=== PATIENT | female | born 1995 | race Caucasian/White ===

== ENCOUNTER → 2021-02-18 13:34 | Outpatient (BNVA) | payer SELFPAY | PROVIDERS: PCP Pediatrics; Visit Provider Physician Assistant | DX: Z02.79 Encounter for issue of other medical certificate (principal) ==

== ENCOUNTER 2021-10-24 14:27 | Emergency (ER) | payer OTHER, SELFPAY ==
[2021-10-24 14:32] VITALS: BP 112/67; PULSE 80; RESP 16; TEMP 36.1; O2SAT 99; BMI 20.9
--- NOTE | 2021-10-24 15:23 | ED_ITS ---
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 Mild dysuria. Discharge described as thin and white. No abd pain, fever or chills. no back pain. Pt sexually active. Pt complains of mild cramping after urination Related Data Previous Rx's Medication Instructions Recorded fluconazole 150 mg tablet 150 mg PO Q3D #2 tab 10/24/21 (Diflucan) Allergies Allergy/AdvReac Type Severity Reaction Status Date / Time No Known Allergies Allergy Verified 10/24/21 14:31 Review of Systems Verdana 4l Review of Systems: Verdana 4d Verdana 4d Constitutional : No Fever, No Chills ENT/Mouth : No sore throat, No Rhinorrhea Eyes: No Eye Pain, No Redness Cardiovascular : No Chest Pain, No SOB Respiratory : No Cough, No Sputum, No Wheezing Gastrointestinal : No Nausea, No Vomiting, NoNo Diarrhea, mild cramping Genitourinary : No irregular bleeding, No Dysuria, No Urinary Frequency, No pelvic pain, + vaginal discharge, no hematuria Musculoskeletal : No Myalgias Skin : No rash Neuro : No Weakness, No Headache Psych : No Anxiety/Panic, No Depression,No SI/HI/thoughts of self injury Heme/Lymph: No bruising, No Lymphadenopathy Endocrine : No Polyuria, No Polydipsia Yes all other systems are reviewed and are negative [facility] Past Medical History Attestation statement: The following information was validated with the patient. Medical History (Updated 10/24/21 @ 16:33 by LAURA Santana) No known health problems Social History Social History Advance Directives: No Advance Directives Information Provided: Yes Patient : No Physical Exam Verdana 4l Vital Signs: Verdana 4d Verdana 4d Vital Signs: Verdana 4d Verdana 4Bd Last Vital Signs Verdana 4d Rn Testing New 4d Rn Testing New 4d Temp 97 F 10/24/21 14:32 Rn Testing New 4d Pulse 80 10/24/21 14:32 Rn Testing New 4d Resp 16 10/24/21 14:32 BP 112/67 10/24/21 14:32 Pulse Ox 99 10/24/21 14:32 BMI result Body Mass Index 20.9 vital signs have been reviewed as normal and appeared to be correct.? Blood pressure normal.? Heart rate normal.? Respiration rate normal.? Temperature normal.? Oxygen saturation normal. Appearance: Alert. Oriented X3. No acute distress.? ?Head: Normal external exam. Atraumatic Eyes: EOMI. Conjunctiva and sclera normal. Eyelids normal.? ENT: No trismus noted.? No drooling noted.? No muffled voice noted. Neck: Normal inspection. Neck supple. Normal ROM. No meningeal signs. CVS: Normal heart rate and rhythm. Heart sound normal. No murmurs noted. Respiratory: No respiratory distress. Painless inspiration. Breath sounds normal. No wheezes/rales/rhonchi noted.? ?No accessory muscle usage noted or decreased air movement noted. Abdomen: Soft and nontender. Bowel sounds normal in all 4 quadrants. No distention noted.? No organomegaly noted.? No visible injury noted. :? Supervised by Gena De León. Normal external appearance. No lesions/lacerations or or tenderness noted.?+ white, milky discharge. Speculum exam normal appearance/palpation of vagina normal. Otherwise no vaginal erythema. No foreign bodies noted. No vaginal laceration/lesions or active bleeding noted.? No tissue present in vagina.? No vaginal mass noted.? No vaginal swelling noted.? No vaginal tenderness noted.? Normal appearance of cervix.? Back:? No CVA tenderness.? Full range of motion noted.? Skin: Skin warm and dry.? Normal skin color.? Normal skin turgor. No rashes/lesions/lacerations noted. Extremities: No lower extremity edema.? ?Extremities exhibit normal range of motion.? Extremities nontender.? Neuro: Oriented X 3.? No motor deficit.? No sensory deficit. MDM - Female Genitourinary Lab Data Attestation: I reviewed the patient's lab results. Labs: Lab Results 10/24/21 10/24/21 Range/Units 15:55 15:56 Urine Color YELLOW Urine Appearance HAZY Urine pH 7.5 (5.0-8.0) Ur Specific [place] 1.020 (1.005-1.025) Urine Protein NEG (NEG-TRACE) MG/DL Urine Glucose (UA) NEG (NEG) MG/DL Urine Ketones 5 (NEG) MG/DL Urine Blood NEG (NEG) Urine Nitrite NEG (NEG) Ur Leukocyte Esterase NEG (NEG) Urine Test NEGATIVE (NEGATIVE) Discharge Plan Discharge Clinical Impression: Vaginal yeast infection Patient Disposition: Home, Self-Care Instructions: Yeast Infection (ED) Additional Instructions: Your exam indicates that you have a vaginal yeast infection. Take medication as directed. Follow up if no improvement in 1 week or if worsening symptoms. You were also tested for other sexually transmitted diseases (gonorrhea and chlamydia). These tests take a couple of days to come back. You will receive a phone call if those tests come back positive. You do not have a urinary tract infection. Prescriptions: New fluconazole [Diflucan] 150 mg tablet 150 mg PO Q3D Qty: 2 0RF Rx Instructions: may repeat second dose 72 hrs after first dose if symptoms persist Referrals: Physician,None [Primary Care Provider] - 2 days (See attached handout with primary care providers) Interventions: ED Discharge Assessment Last Done: 10/24/21 16:50 Discharge Date/Time: 10/24/21 16:51
[2021-10-24 16:03] LABS: Appearance Urine HAZY; Color Urine YELLOW; Glucose Urine UA NEG (NEG); Leukocyte Esterase Urine NEG (NEG); Nitrite Urine NEG (NEG); PH 7.5 (5.0-8.0); Urine Blood NEG (NEG); Urine Ketones 5 MG/DL (NEG); Urine Protein NEG (NEG-TRACE)
[2021-10-24 16:18] LABS: UPreg QC Valid YES; Urine Pregnancy NEGATIVE (NEGATIVE)
[2021-10-25 14:22] LABS: BV Int Neg Control Negative (Negative); BV Int Pos Control Positive (Positive)
== END 2021-10-24 16:51 | disposition home or self-care (01) ==
PROVIDERS: Physician Assistant; Emergency Provider Emergency Medicine
DX: B37.3 Candidiasis of vulva and vagina (principal)
CPT/HCPCS: 81003; 81025; 87480; 87491; 87510; 87591; 87660; 99284

== ENCOUNTER 2022-07-12 09:40 | Emergency (ER) | payer OTHER, SELFPAY ==
--- NOTE | ~2022-07-12 | CT_ITS ---
EXAMINATION: CT ABDOMEN AND PELVIS WITHOUT CONTRAST CLINICAL INFORMATION: 26-year-old female with flank pain and weight COMPARISON: None TECHNIQUE: Multidetector volumetric imaging was performed from the superior aspect of the liver through the pubic symphysis. Sagittal and coronal reformatted images were obtained on the technologist's workstation. This CT examination was performed using dose optimization techniques as appropriate, variously including the following: *Automated exposure control *Adjustment of mA and/or kV according to patient size (this includes techniques or standardized protocols for targeted exams where dose is matched to indication/reason for exam; i.e. extremities or head) *Use of iterative reconstruction technique DLP: 246 mGy-cm FINDINGS: LUNG BASES: The visualized lung bases are unremarkable. LIVER, GALLBLADDER, AND BILIARY TREE: The liver is normal in size, shape, and attenuation. No focal hepatic lesion or biliary ductal dilatation is present. The gallbladder is unremarkable with no evidence of radiopaque gallstones, gallbladder wall thickening, or obvious pericholecystic inflammatory changes. PANCREAS: Unremarkable. SPLEEN: Unremarkable. ADRENAL GLANDS: Unremarkable. KIDNEYS AND URETERS: There is punctate calculus in the collecting system of right kidney without hydronephrosis. Left kidney revealed parenchymal punctate calcifications without hydroureteronephrosis.. Ureters are nondilated. BLADDER: Unremarkable. GASTROINTESTINAL TRACT: The small and large bowel are unremarkable. The appendix is not identified. ABDOMINAL WALL: There is small fat-containing umbilical hernia LYMPH NODES: There are scattered mesenteric lymph nodes seen on the right with the largest measured 1.1 cm on image 30 series 5 VASCULAR: Unremarkable. PELVIC VISCERA: Unremarkable. OSSEOUS STRUCTURES: Unremarkable. CT/CT abdomen pelvis wo IV con IMPRESSION: Nonobstructing punctate calculi seen bilaterally. Mesentery adenitis, correlate clinically Fleischner guidelines were followed.
[2022-07-12 09:53] VITALS: BP 122/78; PULSE 78; RESP 16; TEMP 36.2; O2SAT 98; BMI 18.7
--- NOTE | 2022-07-12 11:11 | ED.GENADULT ---
HPI - General Adult General Chief complaint: Nausea/Vomiting/Diarrhea Stated complaint: Vomiting/Sore throat Time Seen by Provider: 07/12/22 11:11 Source: patient Mode of arrival: ambulatory Limitations: no limitations History of Present Illness HPI narrative: Patient is a 26 year old assigned female at with no reported medical history presenting to the emergency department today with nausea, vomiting, and upper abdominal pain that is intermittent over the last few months. Patient states that every day she has had nausea, vomiting, and upper abdominal pain and this has been going on since she was in high school. Patient states that she has never been formally evaluated for this. Patient states that the back of her tongue sometimes feels burned and painful. Patient states that every time she eats, this pain gets worse. Patient denies any dizziness, lightheadedness, fever, chills, blurry vision, double vision, loss of vision, chest pain, difficulty breathing, shortness of breath, back pain, night sweats, pain with urination, increased urinary frequency, increased urinary urgency, blood in her urine or stool, syncope or a near syncopal episode, recent trauma or falls, bowel incontinence, bladder incontinence, bowel retention, bladder retention, or any other complaints at this time. Onset (ago): year(s) Location: abdomen Radiation: non-radiation Severity: mild Severity scale (1-10): 3 Relieving factors: none Exacerbating factors: eating Associated symptoms: denies other symptoms Treatments prior to arrival: none Related Data Previous Rx's Medication Instructions Recorded fluconazole 150 mg tablet 150 mg PO Q3D 2 doses #2 tabs 10/24/21 (Diflucan) omeprazole 20 mg capsule,delayed 20 mg PO BID #14 caps 07/12/22 release ondansetron 4 mg disintegrating 4 mg PO Q8H 3 days #9 tabs 07/12/22 tablet Allergies Allergy/AdvReac Type Severity Reaction Status Date / Time No Known Allergies Allergy Verified 10/24/21 14:31 Review of Systems Constitutional: Constitutional: Reports no additional constitutional complaints, Denies chills, Denies fever(s) and Denies night sweats Eyes: Eyes: Reports no additional eye complaints, Denies blurry vision, Denies change in vision, Denies diplopia, Denies eye discharge, Denies loss of vision and Denies eye pain ENT: Denies dizziness Cardiovascular: Cardiovascular: Reports no additional cardiovascular complaints, Denies chest pain, Denies lightheadedness, Denies Loss of Consciousness and Denies dyspnea Respiratory: Respiratory: Reports no additional respiratory complaints and Denies dyspnea Gastrointestinal: Gastrointestinal: Reports no additional gastrointestinal complaints, Reports abdominal pain, Denies melena, Denies hematochezia, Denies change in bowel habits, Denies change in stool character, Reports nausea and Reports vomiting Genitourinary: Genitourinary: Denies hematuria, Denies urinary frequency, Denies dysuria, Denies urinary incontinence, Denies urinary hesitancy and Denies urinary urgency Musculoskeletal: Musculoskeletal: Reports no additional musculoskeletal complaints, Denies numbness and Denies tingling Neurologic: Denies dizziness, Denies loss of vision, Denies numbness and Denies tingling Psychiatric: Psychiatric: Reports no additional psychiatric complaints Endocrine: Endocrine: Reports no additional endocrine complaints Hematologic/Lymphatic: Hematologic/Lymphatic: Reports no additional hematologic/lymphatic complaints Allergic/Immunologic: Allergic/Immunologic: Reports no additional allergic/immunologic complaints PMFSH Past Medical History Attestation statement: The following information was validated with the patient. Source: old records reviewed Medical History No known health problems Social History Social History Advance Directives: Yes Advance Directives Information Provided: Yes Advance Directives on File: No Physical Exam ED Vital Signs: Vital Signs - 24 hr 07/12/22 09:53 Temperature 97.1 F Pulse Rate 78 Respiratory Rate 16 Blood Pressure 122/78 Pulse Oximetry 98 Oxygen Delivery Method Room Air BMI result Body Mass Index 18.7 Const General: cooperative, no acute distress, alert and awake Nutritional Appearance: well nourished Orientation/consciousness: patient oriented x3 Limitations: no limitations HENMT Head: Yes normal to inspection and Yes atraumatic Ears: hearing grossly normal bilaterally and external ears normal General nose exam: Normal external nose present, no nasal discharge noted and no epistaxis Face and sinus: Yes normal facial exam, No abrasion and No laceration Mouth: Normal oral and palatal mucosa present, no drooling and no muffled voice Eyes General: appearance normal, both eyes and all related structures Periorbital: periorbital findings normal Eyelids: Yes eyelids normal Conjunctivae: conjunctivae normal Pupils: Equal, round and reactive pupils present EOM: EOMs intact bilaterally Neck Neck: Yes normal visual inspection, Yes full ROM and Yes no lymphadenopathy Chest Chest palpation & inspection: normal inspection of the chest Resp Effort & Inspection: normal respiratory effort and able to speak in complete sentences Auscultation: clear to auscultation bilaterally Cardio Rate: regular rate Rhythm: regular rhythm GI Inspection: Yes normal to inspection Palpation (GI): Soft to palpation, not firm, nontender, no guarding and not rigid Neuro General: patient oriented x3 and moves all extremities Cranial nerves: Yes Equal, round and reactive pupils present Cognition (Neuro): normal cognition Motor exam (neuro): 5/5 motor strength present throughout Sensory Exam: Normal double simultaneous stimulation for sensation Coordination: [id number] test normal Extrem General: Yes normal to inspection, Yes full ROM and Yes capillary refill normal Psych Appearance: grossly normal Mental Status: mental status grossly normal Affect: normal affect Attitude: cooperative Thought process: Normal thought process present Thought content: Normal thought content present Insight: Good insight present (Psych) Medical Decision Making [facility] Narrative Medical decision making narrative: Patient is a 26 year old assigned female at with no reported medical history presenting to the emergency department today with nausea, vomiting, and epigastric pain. Patient's physical exam was unremarkable. Patient's blood work was unremarkable. Patient's urine showed no acute process. Patient's abdominal CT showed no acute process. Patient's current clinical presentation is most consistent with GERD. I explained my physical exam findings as well as all test results to the patient. I answered all questions asked by the patient. Patient received PO Maalox, IV Protonix, IV Morphine, IV Zofran and IV fluids, which she stated helped her symptoms significantly. I stressed the importance of the patient taking her medication as prescribed. I stressed the importance of the patient following up with her primary care provider and a GI specialist. I stressed the importance of the patient returning to the emergency department immediately if her symptoms were to worsen or if she were to develop any dizziness, shortness of breath, difficulty breathing, chest pain, blurry vision, loss of vision, nausea, vomiting, abdominal pain, fever, chills, back pain, or any other complaints. Patient verbalized agreement and understanding with this treatment plan and discharge. Medical Records Medical records reviewed: Yes I reviewed the patient's medical records. Lab Data Lab results reviewed: Yes I reviewed the patient's lab results. Result diagrams: 07/12/22 11:39 07/12/22 11:39 Labs: Lab Results 07/12/22 07/12/22 07/12/22 Range/Units 11:39 11:39 11:39 WBC 8.4 (4.8-10.8) X10*3/uL RBC 4.14 L (4.20-5.50) X10*6/uL Hgb 13.1 (12.0-16.0) g/dl Hct 37.6 (37.0-47.0) % MCV 90.8 (80.0-98.0) fL MCH 31.6 (27.0-33.0) pg MCHC 34.8 (31.0-35.0) g/dl RDW 12.1 (11.0-16.0) % Plt Count 214 (160-400) X10*3/uL MPV 10.6 (9.4-12.3) fL Immature Gran % (Auto) 0.2 (0.0-0.4) % Neut % (Auto) 70.1 (45-73) % Lymph % (Auto) 22.5 (20-40) % [place] % (Auto) 4.3 (2-11) % Eos % (Auto) 2.4 (0-4) % Baso % (Auto) 0.5 (0-2) % Lymph # (Auto) 1.9 (1.2-4.9) X10*3/uL [place] # (Auto) 0.4 (0.1-1.2) X10*3/uL Eos # (Auto) 0.2 (0.0-0.4) X10*3/uL Baso # (Auto) 0.0 (0.0-0.2) X10*3/uL Abs Immat Gran (auto) 0.02 (0.00-0.03) X10*3/uL Absolute Neuts (auto) 5.9 (2.0-8.3) x10*3/uL Absolute Nucleated RBC 0.000 (0.0-0.012) X10*3/uL Nucleated RBC % (auto) 0.0 (0.0-0.2) /100WBC Sodium 140 (135-145) mmol/L Potassium 3.5 (3.3-5.1) mmol/L Chloride 105 (96-108) mmol/L Carbon Dioxide 24 (22-29) mmol/L Anion Gap 15 (12-20) BUN 10 (9-16) mg/dL Creatinine 0.73 (0.5-1.4) mg/dL Estim Creat Clear Calc 75.5 Estimated GFR > 60 Random Glucose 85 (60-115) mg/dL Calcium 9.5 (8.4-10.2) mg/dL Total Bilirubin 1.2 H (0.0-1.0) mg/dL AST 14 (5-31) U/L ALT 23 (0-31) U/L Alkaline Phosphatase 55 (39-117) U/L Total Protein 7.4 (6.5-8.0) g/dL Albumin 4.6 (3.5-5.0) g/dL Lipase 25 (8-78) U/L Beta HCG, Quant < 2 mIU/mL Urine Color Yellow Urine Appearance Cloudy Urine pH 7.5 (5.0-9.0) Ur Specific [place] 1.020 (1.005-1.025) Urine Protein Trace (Neg-Trace) mg/dL Urine Glucose (UA) Negative (Negative) mg/dL Urine Ketones 80 (Negative) mg/dL Urine Blood Negative (Negative) Urine Nitrite Negative (Negative) Ur Leukocyte Esterase Trace H (Negative) Urine RBC 0-2 (0-2) /HPF Urine WBC 0-5 (0-5) /HPF Ur Squamous Epith Cells 3-5 (0-2) /HPF Urine Bacteria None Seen (None Seen) Hyaline Casts 0-2 (0-2) /LPF Imaging Data CT scan - abdomen: Attestation: I personally reviewed and interpreted this imaging study as follows: My impression: No acute process. Radiologist's impression: EXAMINATION: CT ABDOMEN AND PELVIS WITHOUT CONTRAST? CLINICAL INFORMATION: 26-year-old female with flank pain and weight? COMPARISON: None? TECHNIQUE: Multidetector volumetric imaging was performed from the superior aspect of the liver through the pubic symphysis. Sagittal and coronal reformatted images were obtained on the technologist's workstation.? This CT examination was performed using dose optimization techniques as appropriate, variously including the following: *Automated exposure control *Adjustment of mA and/or kV according to patient size (this includes techniques or standardized protocols for targeted exams where dose is matched to indication/reason for exam; i.e. extremities or head) *Use of iterative reconstruction technique DLP: 246 mGy-cm FINDINGS: LUNG BASES: The visualized lung bases are unremarkable.? LIVER, GALLBLADDER, AND BILIARY TREE: The liver is normal in size, shape, and attenuation. No focal hepatic lesion or biliary ductal dilatation is present. The gallbladder is unremarkable with no evidence of radiopaque gallstones, gallbladder wall thickening, or obvious pericholecystic inflammatory changes.? PANCREAS: Unremarkable.? SPLEEN: Unremarkable.? ADRENAL GLANDS: Unremarkable.? KIDNEYS AND URETERS: There is punctate calculus in the collecting system of right kidney without hydronephrosis. Left kidney revealed parenchymal punctate calcifications without hydroureteronephrosis.. Ureters are nondilated.? BLADDER: Unremarkable.? GASTROINTESTINAL TRACT: The small and large bowel are unremarkable. The appendix is not identified.? ABDOMINAL WALL: There is small fat-containing umbilical hernia? LYMPH NODES: There are scattered mesenteric lymph nodes seen on the right with the largest measured 1.1 cm on image 30 series 5 VASCULAR: Unremarkable. PELVIC VISCERA: Unremarkable.? OSSEOUS STRUCTURES: Unremarkable.? CT/CT abdomen pelvis wo IV con IMPRESSION: Nonobstructing punctate calculi seen bilaterally. Mesentery adenitis, correlate clinically? ? Fleischner guidelines were followed. Dictated By: Lory Alcocer MD Signed By: Electronically signed by Lory Alcocer MD 07/12/22 [id number] Discharge Plan Discharge Clinical Impression: Gastroesophageal reflux disease Patient Disposition: Home, Self-Care Instructions: Gastroesophageal Reflux Disease (ED) Additional Instructions: Follow up with your primary care provider. Return to the emergency department immediately if your symptoms worsen or if you develop any dizziness, shortness of breath, difficulty breathing, chest pain, blurry vision, loss of vision, nausea, vomiting, abdominal pain, fever, chills, back pain, or any other complaints. Prescriptions: New omeprazole 20 mg capsule,delayed release(DR/EC) 20 mg PO BID Qty: 14 0RF ondansetron 4 mg tablet,disintegrating 4 mg PO Q8H 3 Days Qty: 9 0RF No Action fluconazole [Diflucan] 150 mg tablet 150 mg PO Q3D Qty: 2 0RF Rx Instructions: may repeat second dose 72 hrs after first dose if symptoms persist Referrals: [facility] [place] [facility] [Provider Group] (Call to establish and follow up with a GI specialist. ) [facility] [place] Family Medicine [Provider Group] (Call to establish and follow up with a primary care provider. If you already have a primary care provider, please follow up with them. ) [facility] [place] Primary Care, [place] [Provider Group] (Call to establish and follow up with a primary care provider. If you already have a primary care provider, please follow up with them. ) [facility] [place] Primary Care,Briana [Provider Group] (Call to establish and follow up with a primary care provider. If you already have a primary care provider, please follow up with them. ) Stand Alone Forms: Work/School Release Interventions: ED Discharge Assessment Last Done: 07/12/22 14:11 Discharge Date/Time: 07/12/22 14:13 Print Language: [place]
[2022-07-12] MEDS: 0.9 % Sodium Chloride 1,000 ML 999 ML IV (11:43)
[2022-07-12 11:48] LABS: MANUAL DIFF FLAG NO
[2022-07-12] MEDS: Magnesium Hydrox/Alum Hydrox 30 ML ORAL.SUSP 15 ML PO (11:50)
[2022-07-12 11:51] LABS: Appearance Urine Cloudy; Color Urine Yellow; Glucose Urine UA Negative (Negative); Leukocyte Esterase Urine Trace (Negative); Nitrite Urine Negative (Negative); PH 7.5 (5.0-9.0); UMIC TRIGGER UACC YES; Urine Blood Negative (Negative); Urine Ketones 80 mg/dL (Negative); Urine Protein Trace mg/dL (Neg-Trace)
[2022-07-12] MEDS: ondansetron HCL 4 MG/2 ML VIAL IVPUSH (11:51)
[2022-07-12 11:54] LABS: Basophils Percent Auto 0.5 % (0-2); Eosinophils Absolute Auto 0.2 X10*3/uL (0.0-0.4); Eosinophils Percent Auto 2.4 % (0-4); Hematocrit 37.6 % (37.0-47.0); Hemoglobin 13.1 g/dl (12.0-16.0); Imm Gran Abs Auto 0.02 X10*3/uL (0.00-0.03); Imm Gran Pct Auto 0.2 % (0.0-0.4); Lymphocytes Absolute Auto 1.9 X10*3/uL (1.2-4.9); Lymphocytes Percent Auto 22.5 % (20-40); Mean Corpuscular HGB Conc 34.8 g/dl (31.0-35.0); Mean Corpuscular Hemoglobin 31.6 pg (27.0-33.0); Mean Corpuscular Volume 90.8 fL (80.0-98.0); Mean Platelet Volume 10.6 fL (9.4-12.3); Monocytes Absolute Auto 0.4 X10*3/uL (0.1-1.2); Monocytes Percent Auto 4.3 % (2-11); Neutrophils Absolute Auto 5.9 x10*3/uL (2.0-8.3); Neutrophils Percent Auto 70.1 % (45-73); Platelet Count 214 X10*3/uL (160-400); Red Blood Count 4.14 X10*6/uL (4.20-5.50); Red Cell Distribution Width 12.1 % (11.0-16.0); White Blood Count 8.4 X10*3/uL (4.8-10.8)
[2022-07-12] MEDS: Pantoprazole Sodium 40 MG/10 ML VIAL IVPUSH (11:55)
[2022-07-12 11:57] LABS: Bacteria Urine None Seen (None Seen); Hyaline Casts Urine 0-2 /LPF (0-2); RBC Urine 0-2 /HPF (0-2); WBC Urine 0-5 /HPF (0-5)
[2022-07-12 12:12] LABS: HCG Quantitative < 2 mIU/mL
[2022-07-12 12:25] LABS: Alanine Aminotransferase 23 U/L (0-31); Albumin Level 4.6 g/dL (3.5-5.0); Alkaline Phosphatase 55 U/L (39-117); Anion Gap 15 (12-20); Aspartate Amino Transferase 14 U/L (5-31); Bilirubin Total 1.2 mg/dL (0.0-1.0); Blood Urea Nitrogen 10 mg/dL (9-16); Calcium 9.5 mg/dL (8.4-10.2); Carbon Dioxide 24 mmol/L (22-29); Chloride 105 mmol/L (96-108); Creatinine Clr Calc Pharmacy 75.5; Estimated Glomerular Filt Rate > 60; Glucose Random 85 mg/dL (60-115); Lipase 25 U/L (8-78); Potassium 3.5 mmol/L (3.3-5.1); Sodium 140 mmol/L (135-145); Total Protein 7.4 g/dL (6.5-8.0)
[2022-07-12] MEDS: Morphine Sulfate 2 MG/ML CARTRIDGE 1 MG IVPUSH (13:29)
== END 2022-07-12 14:13 | disposition home or self-care (01) ==
PROVIDERS: Physician Assistant Medical; Emergency Provider Emergency Medicine
DX: K21.9 Gastro-esophageal reflux disease without esophagitis (principal); R11.2 Nausea with vomiting, unspecified; R10.10 Upper abdominal pain, unspecified
CPT/HCPCS: 36415; 74176; 80053; 81001; 83690; 84702; 85025; 96361; 96374; 96375; 99283; 99284; J2270; J2405

== ENCOUNTER 2022-08-05 16:20 | Outpatient (REF) | payer OTHER, SELFPAY ==
[2022-08-05 18:07] LABS: C Reactive Protein 0.21 mg/dL (< or = 0.50)
[2022-08-05 18:30] LABS: TSH reflex Free T4 0.75 uIU/mL (0.32-4.0)
[2022-08-06 08:39] LABS: Folate 9.5 ng/mL (> or = 4.0); Vitamin B12 654 pg/mL (200-900)
[2022-08-07 11:12] LABS: H Pylori Breath Test Positive (Negative)
[2022-08-10 05:32] LABS: Transglutaminase Ab IgG <1.0 U/mL; Transglutaminase IgA <1.0 U/mL
[2022-08-11 11:55] LABS: Vitamin D 25-OH, D2 <4 ng/mL; Vitamin D 25-OH, D3 22 ng/mL; Vitamin D 25-OH, Total 22 ng/mL (30-100)
== END 2022-08-05 16:21 | disposition home or self-care (01) ==
LOC: HO.LAB 16:20
PROVIDERS: Visit Provider Nurse Practitioner Family
DX: K58.0 Irritable bowel syndrome with diarrhea (principal); K58.1 Irritable bowel syndrome with constipation; R10.9 Unspecified abdominal pain; E55.9 Vitamin D deficiency, unspecified
CPT/HCPCS: 36415; 82306; 82607; 82746; 83013; 84443; 86140; 86364; 99202

== ENCOUNTER 2022-08-09 07:16 | Emergency (ER) | payer OTHER, SELFPAY ==
--- NOTE | ~2022-08-09 | XR_ITS ---
EXAMINATION: XR KNEE, LEFT CLINICAL INFORMATION: Left knee pain. COMPARISON: None TECHNIQUE: Two views of the left knee. An indicator arrow points to the lateral aspect of the left knee. FINDINGS: Bones and soft tissues are normal. No fracture or joint effusion. Alignment is anatomic. Joint spaces are well maintained. No abnormal soft tissue calcification. XR/XR knee LT 2V IMPRESSION: Unremarkable left knee.
[2022-08-09 07:27] VITALS: BP 105/72; PULSE 82; RESP 18; TEMP 36.6; O2SAT 98; BMI 17.7
[2022-08-09 07:51] LABS: Strep A Nucleic Acid Negative (Negative)
--- NOTE | 2022-08-09 08:18 | ED_ITS ---
HPI - General Adult General Chief complaint: General Medical Stated complaint: L knee pain/Sore throat Time Seen by Provider: 08/09/22 08:14 Source: patient Mode of arrival: ambulatory Limitations: no limitations History of Present Illness HPI narrative: Patient is a 26 year old assigned female at with no reported medical history presenting to the emergency department today with left knee pain and a sore throat. Patient states that over the last 2 weeks, his left knee has been painful and she has been having a sore throat. Patient denies any dizziness, lightheadedness, abdominal pain, nausea, vomiting, fever, chills, blurry vision, double vision, loss of vision, chest pain, difficulty breathing, shortness of breath, back pain, night sweats, pain with urination, increased urinary frequenc y, increased urinary urgency, blood in her urine or stool, syncope or a near syncopal episode, recent trauma or falls, bowel incontinence, bladder incontinence, bowel retention, bladder retention, or any other complaints at this time. Onset (ago): week(s) (2) Location: left and lower extremity Radiation: non-radiation Severity: mild Severity scale (1-10): 3 Quality: dull Pain Consistency: constant Relieving factors: none Exacerbating factors: none Associated symptoms: denies other symptoms Treatments prior to arrival: none Related Data Previous Rx's Medication Instructions Recorded famotidine 20 mg tablet (Pepcid) 20 mg PO BEDTIME #30 tabs 08/05/22 omeprazole 20 mg capsule,delayed 20 mg PO DAILY #30 caps 08/05/22 release ondansetron 4 mg disintegrating 4 mg PO Q8H PRN nausea and 08/05/22 tablet vomiting #20 tabs Allergies Allergy/AdvReac Type Severity Reaction Status Date / Time No Known Allergies Allergy Verified 08/05/22 15:15 Review of Systems Constitutional: Constitutional: Reports no additional constitutional complaints, Denies chills, Denies fever(s) and Denies night sweats Eyes: Eyes: Reports no additional eye complaints, Denies blurry vision, Denies change in vision, Denies diplopia, Denies eye discharge, Denies loss of vision and Denies eye pain ENT: Denies dizziness and Reports sore throat Cardiovascular: Cardiovascular: Reports no additional cardiovascular complaints, Denies chest pain, Denies lightheadedness, Denies Loss of Consciousness and Denies dyspnea Respiratory: Respiratory: Reports no additional respiratory complaints and Denies dyspnea Gastrointestinal: Gastrointestinal: Reports no additional gastrointestinal complaints, Denies abdominal pain, Denies melena, Denies hematochezia, Denies change in bowel habits and Denies change in stool character Genitourinary: Genitourinary: Denies hematuria, Denies urinary frequency, Denies dysuria, Denies urinary incontinence, Denies urinary hesitancy and Denies urinary urgency Musculoskeletal: Musculoskeletal: Reports no additional musculoskeletal complaints, Denies numbness and Denies tingling Comments: left knee pain Neurologic: Denies dizziness, Denies loss of vision, Denies numbness and Denies tingling Psychiatric: Psychiatric: Reports no additional psychiatric complaints Endocrine: Endocrine: Reports no additional endocrine complaints Hematologic/Lymphatic: Hematologic/Lymphatic: Reports no additional hematologic/lymphatic complaints Allergic/Immunologic: Allergic/Immunologic: Reports no additional allergic/immunologic complaints PMFSH Past Medical History Attestation statement: The following information was validated with the patient. Source: old records reviewed Medical History No known health problems Surgical History Hx of wisdom tooth extraction Family History Family History Mother HTN (hypertension) Social History Social History Household Members: Family Alcohol intake: never Patient Tobacco Use Status: Never used Tobacco Advance Directives: No Advance Directives Information Provided: Yes Physical Exam ED Vital Signs: Vital Signs - 24 hr 08/09/22 07:27 Temperature 98 F Pulse Rate 82 Respiratory Rate 18 Blood Pressure 105/72 Pulse Oximetry 98 Oxygen Delivery Method Room Air BMI result Body Mass Index 17.7 Const General: cooperative, no acute distress, alert and awake Nutritional Appearance: well nourished Orientation/consciousness: patient oriented x3 Limitations: no limitations HENMT Head: Yes normal to inspection and Yes atraumatic Ears: hearing grossly normal bilaterally and external ears normal General nose exam: Normal external nose present, no nasal discharge noted and no epistaxis Face and sinus: Yes normal facial exam, No abrasion and No laceration Mouth: Normal oral and palatal mucosa present, no drooling and no muffled voice Throat: Yes posterior oropharynx normal Eyes General: appearance normal, both eyes and all related structures Periorbital: periorbital findings normal Eyelids: Yes eyelids normal Conjunctivae: conjunctivae normal Pupils: Equal, round and reactive pupils present EOM: EOMs intact bilaterally Neck Neck: Yes normal visual inspection, Yes full ROM and Yes no lymphadenopathy Chest Chest palpation & inspection: normal inspection of the chest Resp Effort & Inspection: normal respiratory effort and able to speak in complete sentences Auscultation: clear to auscultation bilaterally Cardio Rate: regular rate Rhythm: regular rhythm GI Inspection: Yes normal to inspection Neuro General: patient oriented x3 and moves all extremities Cranial nerves: Yes Equal, round and reactive pupils present Cognition (Neuro): normal cognition Motor exam (neuro): 5/5 motor strength present throughout Sensory Exam: Normal double simultaneous stimulation for sensation Coordination: [id number] test normal Extrem General: Yes normal to inspection, Yes full ROM and Yes capillary refill normal Psych Appearance: grossly normal Mental Status: mental status grossly normal Affect: normal affect Attitude: cooperative Thought process: Normal thought process present Thought content: Normal thought content present Insight: Good insight present (Psych) Medical Decision Making MDM Narrative Medical decision making narrative: Patient is a 26 year old assigned female at with no reported medical history presenting to the emergency department today with left knee pain and a sore throat. Patient's physical exam was unremarkable. Patient's rapid COVID-19 swab was negative. Patient's left knee x-ray showed no acute process. I explained my physical exam findings as well as all test results to the patient. I answered all questions asked by the patient. Patient's left knee was wrapped with chantell wrap and she was given crutches with crutch instructions. I stressed the importance of the patient taking her medication as prescribed. I stressed the importance of the patient following up with her primary care provider. I stressed the importance of the patient returning to the emergency department immediately if her symptoms were to worsen or if she were to develop any dizziness, shortness of breath, difficulty breathing, chest pain, blurry vision, loss of vision, nausea, vomiting, abdominal pain, fever, chills, back pain, or any other complaints. Patient verbalized agreement and understanding with this treatment plan and discharge. Medical Records Medical records reviewed: Yes I reviewed the patient's medical records. Lab Data Lab results reviewed: Yes I reviewed the patient's lab results. Labs: Lab Results 08/09/22 08/09/22 Range/Units 07:33 09:11 Influenza Type A (PCR) NEGATIVE (Negative) Influenza Type B (PCR) NEGATIVE (Negative) RSV RNA Qual (PCR) NEGATIVE (Negative) SARS-CoV-2 RNA (RT-PCR) NEGATIVE (Negative) S. pyogenes GrpA FANNY Negative (Negative) Imaging Data Left knee x-ray: Attestation: I personally reviewed and interpreted this imaging study as follows: My impression: No acute process. Radiologist's impression: EXAMINATION: XR KNEE, LEFT CLINICAL INFORMATION: Left knee pain.? COMPARISON: None? TECHNIQUE: Two views of the left knee. An indicator arrow points to the lateral aspect of the left knee. FINDINGS: Bones and soft tissues are normal. No fracture or joint effusion. Alignment is anatomic. Joint spaces are well maintained. No abnormal soft tissue calcification.? XR/XR knee LT 2V IMPRESSION: Unremarkable left knee. Dictated By: Fidel Bland MD Signed By: Electronically signed by Fidel Bland MD 08/09/22 0900 Discharge Plan Discharge Clinical Impression: Knee sprain, Sore throat Patient Disposition: Home, Self-Care Instructions: Knee Sprain (ED), Pharyngitis (ED) Additional Instructions: Follow up with your primary care provider and an orthopedic provider. Return to the emergency department immediately if your symptoms worsen or if you develop any dizziness, shortness of breath, difficulty breathing, chest pain, blurry vision, loss of vision, nausea, vomiting, abdominal pain, fever, chills, back pain, or any other complaints. Prescriptions: No Action ondansetron 4 mg tablet,disintegrating 4 mg PO Q8H PRN (Reason: nausea and vomiting) Qty: 20 0RF famotidine [Pepcid] 20 mg tablet 20 mg PO BEDTIME Qty: 30 3RF omeprazole 20 mg capsule,delayed release(DR/EC) 20 mg PO DAILY Qty: 30 3RF Referrals: [facility] Family Medicine [Provider Group] (Call to establish and follow up with a primary care provider. If you already have a primary care provider, please follow up with them. ) [facility] [Provider Group] (Call to establish and follow up with a primary care provider. If you already have a primary care provider, please follow up with them. ) [facility] [Provider Group] (Call to establish and follow up with a primary care provider. If you already have a primary care provider, please follow up with them. ) [facility] [place] [facility] [Provider Group] (Call to establish and follow up with an orthopedic provider. ) Stand Alone Forms: Work/School Release Print Language: Samoan
[2022-08-09 10:06] LABS: Influenza A PCR NEGATIVE (Negative); Influenza B PCR NEGATIVE (Negative); Resp Syncy Virus RNA Qual PCR NEGATIVE (Negative); SARS COV2 PCR INHOUSE NEGATIVE (Negative)
== END 2022-08-09 11:03 | disposition home or self-care (01) ==
PROVIDERS: Physician Assistant Medical; Emergency Provider Emergency Medicine Emergency Medical Services
DX: S83.92XA Sprain of unspecified site of left knee, initial encounter (principal); X58.XXXA Exposure to other specified factors, initial encounter; J02.9 Acute pharyngitis, unspecified; Z20.822 Contact with and (suspected) exposure to COVID-19; Y93.9 Activity, unspecified; Y92.9 Unspecified place or not applicable; Y99.9 Unspecified external cause status
CPT/HCPCS: 0241U; 36415; 73560; 87651; 99283

== ENCOUNTER 2022-08-10 14:24 | Outpatient (REF) | payer OTHER, SELFPAY ==
[2022-08-20 15:06] LABS: Pancreatic Elastase-1 >500 mcg/g
== END 2022-08-10 14:25 | disposition home or self-care (01) ==
LOC: HO.LNP 14:24
PROVIDERS: Visit Provider Nurse Practitioner Family
DX: R10.9 Unspecified abdominal pain (principal)
CPT/HCPCS: 82656

== ENCOUNTER 2022-08-16 11:08 | Day surgery (SDC) | payer OTHER, SELFPAY ==
--- NOTE | 2022-08-13 11:16 | P.CONAN_ITS ---
Documented by User: Karmen Joseph NP 08/13/22 11:17 HPI - Anesthesia Eval Consult details Narrative: 26yo F for Upper Endoscopy [facility] Past Medical History Medical History No known health problems Family History Family History Mother HTN (hypertension) Surgical History Surgical History Hx of wisdom tooth extraction Social History Social History Household Members: Family Alcohol intake: never Patient Tobacco Use Status: Former Tobacco user Are you DNR?: No Advance Directives: No Advance Directives Information Provided: Yes Patient : No FDLMP: spotting now Meds Allergies Allergy/AdvReac Type Severity Reaction Status Date / Time No Known Allergies Allergy Verified 08/16/22 11:48 Exam Exam Date and Time: August 13, 2022 1116 Pertinent Lab Results Pertinent Lab Results: Laboratory Tests 07/12/22 07/12/22 11:39 11:39 WBC 8.4 Hgb 13.1 Hct 37.6 Plt Count 214 Sodium 140 Potassium 3.5 Chloride 105 Carbon Dioxide 24 BUN 10 Creatinine 0.73 Assessment and Plan Assessment Anesthesia Assessment: Chart Reviewed Documented by User: Deborah Morillo MD 08/16/22 12:00 [facility] Past Medical History Medical History No known health problems Family History Family History Mother HTN (hypertension) Family history of problems with anesthesia: No Surgical History Surgical History Hx of wisdom tooth extraction History of Problems with Anesthesia: No Social History Social History Household Members: Family Alcohol intake: never Patient Tobacco Use Status: Former Tobacco user Are you DNR?: No Advance Directives: No Advance Directives Information Provided: Yes Patient : No FDLMP: spotting now Meds Allergies Allergy/AdvReac Type Severity Reaction Status Date / Time No Known Allergies Allergy Verified 08/16/22 11:48 Exam Airway Mallampati Class: II TM Dist: >3cm Neck ROM: Full Heart: rrr Lungs: cta Assessment and Plan Assessment Anesthesia Assessment: Anesthesia Plan Discussed Final Anesthetic Review Family History of Problems with Anesthesia: No History of Problems with Anesthesia: No NPO: Yes ASA Class: II Final Preanesthetic Review: No Changes in Pt Med Stat, Meds/Allgs Chart Reviewed and Consent Obtained/Reviewed Patient Risk: Intermediate Procedure Risk: Intermediate Anesthetic Plan Anesthetic Plan: MAC: Disposition: Standard PACU
[2022-08-16 11:31] VITALS: BMI 18.3
[2022-08-16 11:34] LABS: UPreg QC Valid YES; Urine Pregnancy NEGATIVE (NEGATIVE)
[2022-08-16] MEDS: Lactated Ringers 1,000 ML 100 ML IVCONT (11:45)
[2022-08-16 11:47] VITALS: BP 110/71; PULSE 85; RESP 18; TEMP 36.9; O2SAT 100
--- NOTE | 2022-08-16 12:12 | MHC.SHP ---
Pre-Procedural Eval Section A Date of Service: 08/16/22 The History & Physical has been completed within 30 days and I have reviewed it.: Yes Section B Chief Complaint: reflux disease Allergies: Allergies Allergy/AdvReac Type Severity Reaction Status Date / Time No Known Allergies Allergy Verified 08/16/22 11:48 Plan Diagnosis/Plan: Unchanged I have reviewed the history and physical and performed a pertinent physical examination on my patient. No changes have occurred unless specified.
--- NOTE | 2022-08-16 12:41 | P.OP_ITS ---
Operative Note Operative Note Date of Service: 08/16/22 Narrative: Procedure: Esophagogastroduodenoscopy Endoscopist: Jo Jones MD Indication: Postprandial abd pain and nausea Anesthesia Provider: Dr Deborah Jacobson Anesthesia Type: MAC Instrument: [id number] ?? EGD Procedure:?? The procedure, indications, preparation and potential complications were reviewed with the patient, who indicated understanding and gave written informed consent to proceed. A physical exam was performed. The endoscope was introduced through the mouth, and advanced to the second part of duodenum. The mucosa was carefully examined on slow withdrawal of the endoscope. The patient tolerated the procedure well. There were no immediate complications.? ? EGD Findings:? * Esophagus:?Normal mucosa noted in the entire esophagus. The Z line was at 35cm. Middle and lower esophagus forceps biopsies were obtained to rule out eosinophilic esophagitis. * Stomach:?Normal mucosa was noted in the stomach. Random cold forceps gastric biopsies were taken to rule out H Pylori infection. * Duodenum:?Normal mucosa was noted in the whole of the examined duodenum. Biopsies were taken from duodenal bulb and second portion of the duodenum to rule out celiac sprue. ? EGD Impressions:? * Normal esophagus (biopsy) * Normal stomach (biopsy) * Normal duodenum (biopsy) ?? Recommendations:?? * Follow biopsy results. Our office will call or send a letter with results within 7-10 days. * If H pylori +, patient will be prescribed eradication therapy followed by test of cure. * Avoid NSAIDs. Above has been reviewed with the patient. ?
[2022-08-16 12:45] VITALS: BP 105/63; PULSE 112; RESP 16; TEMP 36.7; O2SAT 100
[2022-08-16 13:00] VITALS: BP 110/78; PULSE 104; RESP 18; TEMP 36.7; O2SAT 100
== END 2022-08-16 13:20 | disposition home or self-care (01) ==
PROVIDERS: Nurse Practitioner; Visit Provider Internal Medicine
PROC: 0DJ08ZZ Inspection of Upper Intestinal Tract, Via Natural or Artificial Opening Endoscopic (ICD-10-PCS; CPT 43235; principal; 2022-08-16 12:20)
DX: K21.9 Gastro-esophageal reflux disease without esophagitis (principal); R10.13 Epigastric pain; R11.0 Nausea; Z79.899 Other long term (current) drug therapy; Z87.891 Personal history of nicotine dependence
CPT/HCPCS: 43239; 81025; 88305; 88342; J2250

== ENCOUNTER 2022-08-26 07:51 | Outpatient (REF) | payer OTHER, SELFPAY ==
--- NOTE | ~2022-08-26 | XR_ITS ---
EXAMINATION: XR KNEE AP STANDING X-ray right knee CLINICAL INFORMATION: Knee pain COMPARISON: X-ray left knee 08/09/2022 TECHNIQUE: Left knee one skyline view AP bilateral standing view of the knees was obtained. FINDINGS: Left knee: Joint spaces are relatively maintained. No fracture or dislocation. No abnormal soft tissue calcification. Right knee: Single frontal projection. Normal alignment. Joint space is maintained. No evidence of acute fracture.. XR/XR knee standing BI IMPRESSION: Unremarkable left knee.
--- NOTE | ~2022-08-26 | XR_ITS ---
EXAMINATION: XR KNEE AP STANDING X-ray right knee CLINICAL INFORMATION: Knee pain COMPARISON: X-ray left knee 08/09/2022 TECHNIQUE: Left knee one skyline view AP bilateral standing view of the knees was obtained. FINDINGS: Left knee: Joint spaces are relatively maintained. No fracture or dislocation. No abnormal soft tissue calcification. Right knee: Single frontal projection. Normal alignment. Joint space is maintained. No evidence of acute fracture.. XR/XR knee LT 1V IMPRESSION: Unremarkable left knee.
== END 2022-08-26 07:52 | disposition home or self-care (01) ==
LOC: HO.HOSX 07:51
PROVIDERS: Visit Provider Physician Assistant
DX: S83.92XD Sprain of unspecified site of left knee, subsequent encounter (principal); X58.XXXD Exposure to other specified factors, subsequent encounter
CPT/HCPCS: 73560; 73565; 99202

== ENCOUNTER 2022-12-25 02:54 | Emergency (ER) | payer OTHER, SELFPAY ==
[2022-12-25 03:01] VITALS: BP 114/80; PULSE 77; RESP 16; TEMP 36.8; O2SAT 100; BMI 22.7
[2022-12-25 03:43] LABS: MANUAL DIFF FLAG NO
[2022-12-25 03:53] LABS: Basophils Percent Auto 0.6 % (0-2); Eosinophils Absolute Auto 0.2 X10*3/uL (0.0-0.4); Eosinophils Percent Auto 2.9 % (0-4); Hematocrit 40.4 % (37.0-47.0); Hemoglobin 13.7 g/dl (12.0-16.0); Imm Gran Abs Auto 0.03 X10*3/uL (0.00-0.03); Imm Gran Pct Auto 0.5 % (0.0-0.4); Lymphocytes Absolute Auto 1.6 X10*3/uL (1.2-4.9); Mean Corpuscular HGB Conc 33.9 g/dl (31.0-35.0); Mean Corpuscular Hemoglobin 30.5 pg (27.0-33.0); Mean Platelet Volume 11.1 fL (9.4-12.3); Monocytes Absolute Auto 0.3 X10*3/uL (0.1-1.2); Monocytes Percent Auto 4.3 % (2-11); Neutrophils Absolute Auto 4.4 x10*3/uL (2.0-8.3); Neutrophils Percent Auto 67.7 % (45-73); Platelet Count 152 X10*3/uL (160-400); Red Blood Count 4.49 X10*6/uL (4.20-5.50); Red Cell Distribution Width 11.9 % (11.0-16.0); White Blood Count 6.5 X10*3/uL (4.8-10.8)
[2022-12-25 03:54] LABS: Appearance Urine Clear; Color Urine Dark Yellow; Glucose Urine UA Negative (Negative); Leukocyte Esterase Urine Negative (Negative); Nitrite Urine Negative (Negative); Specific Gravity - Urine >= 1.030 (1.005-1.025); UMIC TRIGGER UACC YES; Urine Blood Large (3+) (Negative); Urine Ketones Negative (Negative); Urine Protein Trace mg/dL (Neg-Trace)
[2022-12-25 03:59] LABS: Anion Gap 11 (12-20); Blood Urea Nitrogen 15 mg/dL (9-16); Carbon Dioxide 23 mmol/L (22-29); Chloride 111 mmol/L (96-108); Creatinine Clr Calc Pharmacy 80.2; Estimated Glomerular Filt Rate > 60; Glucose Random 106 mg/dL (60-115); Lipase 21 U/L (8-78); Sodium 141 mmol/L (135-145)
[2022-12-25 04:09] LABS: Bacteria Urine None Seen (None Seen); Hyaline Casts Urine 0-2 /LPF (0-2); WBC Urine 0-5 /HPF (0-5)
[2022-12-25 05:07] VITALS: BP 105/64; PULSE 68; RESP 16; TEMP 36.6; O2SAT 98
[2022-12-25 05:24] LABS: UPreg QC Valid YES; Urine Pregnancy NEGATIVE (NEGATIVE)
[2022-12-25 05:38] LABS: OBS Int Ctl Valid YES; OBS1 NEGATIVE (NEGATIVE)
--- NOTE | 2022-12-25 05:39 | PC.NURSE ---
Pt presents for evaluation of rectal pain with bowel movements that has been ongoing for approximately 4 months. Pain is described as sharp, and is accompanied by lower abd pain and some nausea. No history of hemorrhoids. Stools are not oversized and there's no report of straining, constipation, or diarrhea. Food/fluid intake is WNL for pt. No problems voiding and no visible blood. No recent illness or fever and no recent trauma including sexual.
--- NOTE | 2022-12-25 05:46 | ED_ITS ---
HPI - General Adult General Chief complaint: Abdominal Pain Stated complaint: Abd pain/Blood in stool Time Seen by Provider: 12/25/22 05:15 Source: patient Mode of arrival: ambulatory Limitations: no limitations History of Present Illness HPI narrative: 27-year-old female came in for evaluation of rectal pain and rectal bleed with bowel movement. Patient normally go to the bathroom for bowel movement every 4-5 days usually pass hard stool last bowel movement was 5 days ago passing hard stool then found that she has bright red blood per rectum, do not feel abdominal pain, no nausea, no vomiting, no fever, no history of rectal intercourse, no history of hemorrhoid. Related Data Previous Rx's Medication Instructions Recorded famotidine 20 mg tablet (Pepcid) 20 mg PO BEDTIME #30 tabs 08/05/22 ondansetron 4 mg disintegrating 4 mg PO Q8H PRN nausea and 08/05/22 tablet vomiting #20 tabs bismuth subsalicylate 262 mg 2 tab PO QID 14 days #112 tabs 08/10/22 chewable tablet metronidazole 500 mg tablet 1,000 mg PO BID #56 tabs 08/10/22 omeprazole 20 mg capsule,delayed 20 mg PO BID 14 days #28 caps 08/10/22 release tetracycline 500 mg capsule 1,000 mg PO Q12H #56 caps 08/10/22 lidocaine HCl 2 % mucosal solution 1 appl mucous membrane BID PRN 12/25/22 (Lidocaine Viscous) pain #600 mL Allergies Allergy/AdvReac Type Severity Reaction Status Date / Time No Known Allergies Allergy Verified 08/26/22 15:42 Review of Systems Review of Systems: All other systems are reviewed and are negative Constitutional: Reports as per HPI and Reports no additional constitutional complaints Eyes: Reports as per HPI and Reports no additional eye complaints Reports system reviewed and no additional complaints, except as documented Cardiovascular: Reports as per HPI and Reports no additional cardiovascular c omplaints Respiratory: Reports as per HPI and Reports no additional respiratory complaints Gastrointestinal: Reports as per HPI and Reports no additional gastrointestinal complaints Genitourinary: Reports no additional female genitourinary complaints Musculoskeletal: Reports no additional musculoskeletal complaints Skin/Breast: Reports system reviewed and no additional complaints, except as docu Psychiatric: Reports no additional psychiatric complaints Endocrine: Reports no additional endocrine complaints Hematologic/Lymphatic: Reports no additional hematologic/lymphatic complaints Allergic/Immunologic: Reports no additional allergic/immunologic complaints Reports system reviewed and no additional complaints, except as documented and Reports Abnormal speech present [facility] Past Medical History Medical History No known health problems Surgical History Hx of wisdom tooth extraction Family History Family History Mother HTN (hypertension) Social History Social History Household Members: Family Alcohol intake: never Patient Tobacco Use Status: Former Tobacco user Advance Directives: No Advance Directives Information Provided: Yes Patient : No Physical Exam ED Vital Signs: Vital Signs - 24 hr 12/25/22 03:01 12/25/22 05:07 Temperature 98.3 F 98 F Pulse Rate 77 68 Respiratory Rate 16 16 Blood Pressure 114/80 105/64 Pulse Oximetry 100 98 Oxygen Delivery Method Room Air Room Air BMI result Body Mass Index 22.7 Vital signs have been reviewed as appeared to be correct. Blood pressure normal. Heart rate normal. Respiration rate normal. Temperature normal. Oxygen saturation normal. Appearance: Alert. Oriented X3. No acute distress. Head: Normal external exam. Normocephalic. Atraumatic. No Jean Baptiste signs noted. No raccoon eyes noted Eyes: PERRLA. EOMI. Conjunctiva and sclera normal. Eyelids normal. ENT: TM's Normal. Pharynx normal. Uvula midline. Moist mucous membranes. No trismus noted. No drooling noted. No muffled voice noted. Neck: Normal inspection. Neck supple. FROM. No adenopathy. Thyroid Normal. No meningeal signs. No neck mass noted. CVS: Normal heart rate and rhythm. Heart sound normal. No murmurs noted. Pulses normal throughout. Respiratory: No respiratory distress. Painless inspiration. Breath sounds normal. No wheezes/rales/rhonchi noted. Chest nontender. No accessory muscle usage noted or decreased air movement noted. Abdomen: Soft and nontender. Bowel sounds normal in all 4 quadrants. No distention noted. No organomegaly noted. No visible injury noted. Rectal exam: No visible external hemorrhoid, no palpable internal hemorrhoid, no rectal fissure, no mass, no fluctuation, no tenderness, brown stool with no blood. Back: No CVA tenderness. Full range of motion noted. Skin: Skin warm and dry. Normal skin color. Normal skin turgor. No rashes/lesions/lacerations noted. Extremities: No lower extremity edema. Extremities exhibit normal range of motion. Extremities nontender. Neuro: Oriented X 3. Cranial nerve exam: II-XII are grossly intact No motor deficit. No sensory deficit. Reflexes normal. Course Course Course Narrative: 27-year-old female came in for a rectal bleed only with bowel movement patient move her bowel every 4-5 days with hard stool, no hemorrhoids on exam likely patient had rectal fissure. Will discharge the patient with viscous lidocaine use for rectal pain p.r.n. 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 Patient otherwise hemodynamically stable, stable H&H. Medical Decision Making Differential Diagnosis Differential Diagnoses: The differential diagnosis associated with the presentation includes (Rectal bleed, hemorrhoid, rectal fissure, proctitis, c onstipation.) Lab Data MDM Lab Attestation statement: I reviewed the patient's lab results. 12/25/22 03:38 12/25/22 03:38 Labs: Lab Results 12/25/22 12/25/22 12/25/22 Range/Units 03:38 03:38 03:39 WBC 6.5 (4.8-10.8) X10*3/uL RBC 4.49 (4.20-5.50) X10*6/uL Hgb 13.7 (12.0-16.0) g/dl Hct 40.4 (37.0-47.0) % MCV 90.0 (80.0-98.0) fL MCH 30.5 (27.0-33.0) pg MCHC 33.9 (31.0-35.0) g/dl RDW 11.9 (11.0-16.0) % Plt Count 152 L D (160-400) X10*3/uL MPV 11.1 (9.4-12.3) fL Immature Gran % (Auto) 0.5 H (0.0-0.4) % Neut % (Auto) 67.7 (45-73) % Lymph % (Auto) 24.0 (20-40) % [place] % (Auto) 4.3 (2-11) % Eos % (Auto) 2.9 (0-4) % Baso % (Auto) 0.6 (0-2) % Lymph # (Auto) 1.6 (1.2-4.9) X10*3/uL [place] # (Auto) 0.3 (0.1-1.2) X10*3/uL Eos # (Auto) 0.2 (0.0-0.4) X10*3/uL Baso # (Auto) 0.0 (0.0-0.2) X10*3/uL Abs Immat Gran (auto) 0.03 (0.00-0.03) X10*3/uL Absolute Neuts (auto) 4.4 (2.0-8.3) x10*3/uL Absolute Nucleated RBC 0.000 (0.0-0.012) X10*3/uL Nucleated RBC % (auto) 0.0 (0.0-0.2) /100WBC Sodium 141 (135-145) mmol/L Potassium 4.0 (3.3-5.1) mmol/L Chloride 111 H (96-108) mmol/L Carbon Dioxide 23 (22-29) mmol/L Anion Gap 11 L (12-20) BUN 15 (9-16) mg/dL Creatinine 0.64 (0.5-1.4) mg/dL Estim Creat Clear Calc 80.2 Estimated GFR > 60 Random Glucose 106 (60-115) mg/dL Calcium 9.0 (8.4-10.2) mg/dL Lipase 21 (8-78) U/L Urine Color Dark Yellow Urine Appearance Clear Urine pH 5.0 (5.0-9.0) Ur Specific [place] >= 1.030 H (1.005-1.025) Urine Protein Trace (Neg-Trace) mg/dL Urine Glucose (UA) Negative (Negative) mg/dL Urine Ketones Negative (Negative) mg/dL Urine Blood Large (3+) H (Negative) Urine Nitrite Negative (Negative) Ur Leukocyte Esterase Negative (Negative) Urine RBC 3-5 H (0-2) /HPF Urine WBC 0-5 (0-5) /HPF Ur Squamous Epith Cells 3-5 (0-2) /HPF Urine Bacteria None Seen (None Seen) Hyaline Casts 0-2 (0-2) /LPF Urine Test (NEGATIVE) Stool Occult Blood (NEGATIVE) 12/25/22 12/25/22 Range/Units 03:39 05:30 WBC (4.8-10.8) X10*3/uL RBC (4.20-5.50) X10*6/uL Hgb (12.0-16.0) g/dl Hct (37.0-47.0) % MCV (80.0-98.0) fL MCH (27.0-33.0) pg MCHC (31.0-35.0) g/dl RDW (11.0-16.0) % Plt Count (160-400) X10*3/uL MPV (9.4-12.3) fL Immature Gran % (Auto) (0.0-0.4) % Neut % (Auto) (45-73) % Lymph % (Auto) (20-40) % [place] % (Auto) (2-11) % Eos % (Auto) (0-4) % Baso % (Auto) (0-2) % Lymph # (Auto) (1.2-4.9) X10*3/uL [place] # (Auto) (0.1-1.2) X10*3/uL Eos # (Auto) (0.0-0.4) X10*3/uL Baso # (Auto) (0.0-0.2) X10*3/uL Abs Immat Gran (auto) (0.00-0.03) X10*3/uL Absolute Neuts (auto) (2.0-8.3) x10*3/uL Absolute Nucleated RBC (0.0-0.012) X10*3/uL Nucleated RBC % (auto) (0.0-0.2) /100WBC Sodium (135-145) mmol/L Potassium (3.3-5.1) mmol/L Chloride (96-108) mmol/L Carbon Dioxide (22-29) mmol/L Anion Gap (12-20) BUN (9-16) mg/dL Creatinine (0.5-1.4) mg/dL Estim Creat Clear Calc Estimated GFR Random Glucose (60-115) mg/dL Calcium (8.4-10.2) mg/dL Lipase (8-78) U/L Urine Color Urine Appearance Urine pH (5.0-9.0) Ur Specific [place] (1.005-1.025) Urine Protein (Neg-Trace) mg/dL Urine Glucose (UA) (Negative) mg/dL Urine Ketones (Negative) mg/dL Urine Blood (Negative) Urine Nitrite (Negative) Ur Leukocyte Esterase (Negative) Urine RBC (0-2) /HPF Urine WBC (0-5) /HPF Ur Squamous Epith Cells (0-2) /HPF Urine Bacteria (None Seen) Hyaline Casts (0-2) /LPF Urine Test NEGATIVE (NEGATIVE) Stool Occult Blood NEGATIVE (NEGATIVE) Discharge Plan Discharge Clinical Impression: Bright red rectal bleeding, Constipation Patient Disposition: Home, Self-Care Instructions: Gastrointestinal Bleeding (ED) Prescriptions: New lidocaine HCl [Lidocaine Viscous] 2 % solution 1 appl mucous membrane BID PRN (Reason: pain) Qty: 600 0RF No Action tetracycline 500 mg capsule 1,000 mg PO Q12H Qty: 56 0RF metronidazole 500 mg tablet 1,000 mg PO BID Qty: 56 0RF bismuth subsalicylate 262 mg tablet,chewable 2 tab PO QID 14 Days Qty: 112 0RF omeprazole 20 mg capsule,delayed release(DR/EC) 20 mg PO BID 14 Days Qty: 28 0RF ondansetron 4 mg tablet,disintegrating 4 mg PO Q8H PRN (Reason: nausea and vomiting) Qty: 20 0RF famotidine [Pepcid] 20 mg tablet 20 mg PO BEDTIME Qty: 30 3RF Referrals: Grupo Neville MD [Physician] - Stand Alone Forms: Work/School Release
== END 2022-12-25 06:27 | disposition home or self-care (01) ==
PROVIDERS: Emergency Provider Emergency Medicine
DX: K62.5 Hemorrhage of anus and rectum (principal); K59.00 Constipation, unspecified
CPT/HCPCS: 36415; 80048; 81001; 81025; 82272; 83690; 85025; 99283

== ENCOUNTER → 2023-01-14 07:37 | Outpatient (BNVA) | payer SELFPAY | PROVIDERS: Visit Provider Internal Medicine | DX: Z02.79 Encounter for issue of other medical certificate (principal) ==

== ENCOUNTER → 2023-02-11 16:41 | Outpatient (BNVA) | payer OTHER, SELFPAY | PROVIDERS: Visit Provider Nurse Practitioner Family | DX: A04.8 Other specified bacterial intestinal infections (principal); K21.9 Gastro-esophageal reflux disease without esophagitis; R10.13 Epigastric pain; K64.9 Unspecified hemorrhoids | CPT/HCPCS: 99212 ==

== ENCOUNTER 2023-05-03 01:48 | Emergency (ER) | payer OTHER, SELFPAY ==
[2023-05-03 01:51] VITALS: BP 109/74; PULSE 94; RESP 16; TEMP 37.2; O2SAT 98; BMI 20.5
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
[2023-05-03 02:33] LABS: IDNOW Serial# 08D9AD1C; Strep A Nucleic Acid Positive (Negative)
[2023-05-03 02:42] LABS: COVID-19 Test Negative (Negative); IDNOW Serial# BCCEAD1C
--- NOTE | 2023-05-03 02:56 | ED.GENADULT ---
HPI - General Adult General Chief complaint: General Medical Stated complaint: Sore throat Time Seen by Provider: 05/03/23 02:45 Source: patient Mode of arrival: ambulatory Limitations: no limitations History of Present Illness HPI narrative: sore throat x 3 days with increasing pain no sick contacts MD complaint: sore throat Onset (ago): day(s) (3) Location: mouth Severity: moderate Quality: aching and constant Relieving factors: none Exacerbating factors: other (swallowing) Associated symptoms: fever/chills Treatments prior to arrival: none Related Data Previous Rx's Medication Instructions Recorded ondansetron 4 mg disintegrating 4 mg PO Q8H PRN nausea and 08/05/22 tablet vomiting #20 tabs lidocaine HCl 2 % mucosal solution 1 appl mucous membrane BID PRN 12/25/22 (Lidocaine Viscous) pain #600 mL docusate sodium 100 mg capsule 100 mg PO BEDTIME #90 caps 02/11/23 hydrocortisone 2.5 % topical cream 1 appl RI BID-QID PRN hemorrhoids 02/11/23 with perineal applicator #30 grams (Proctosol HC) polyethylene glycol 3350 17 17 g PO DAILY #510 grams 02/11/23 gram/dose oral powder (Miralax) sucralfate 100 mg/mL oral 10 ml PO BEDTIME #400 mL 02/11/23 suspension omeprazole 20 mg capsule,delayed 20 mg PO DAILY 90 days #90 caps 03/23/23 release amoxicillin 500 mg tablet 500 mg PO BID #20 tabs 05/03/23 Allergies Allergy/AdvReac Type Severity Reaction Status Date / Time No Known Allergies Allergy Verified 08/26/22 15:42 Review of Systems Review of Systems: Constitutional : positive Fever, positive Chills ENT/Mouth : positive sore throat, no runny nose Eyes: No Discharge Cardiovascular : No Chest Pain, No SOB Respiratory : No Cough, No Sputum Gastrointestinal : No Nausea, No Vomiting, No Diarrhea Genitourinary : No Dysuria, No Urinary Frequency Musculoskeletal : no Myalgia Skin : No rash Neuro : No Headache PMFSH Past Medical History Attestation statement: The following information was validated with the patient. Medical History Helicobacter pylori (H. pylori) No known health problems Surgical History History of esophagogastroduodenoscopy (EGD) Hx of wisdom tooth extraction Family History Family History Mother HTN (hypertension) Social History Social History Household Members: Family Alcohol intake: never Patient Tobacco Use Status: Former Tobacco user Advance Directives: No Advance Directives Information Provided: Yes Physical Exam ED Vital Signs: Vital Signs - 24 hr 05/03/23 01:51 Temperature 98.9 F Pulse Rate 94 Respiratory Rate 16 Blood Pressure 109/74 Pulse Oximetry 98 Oxygen Delivery Method Room Air BMI result Body Mass Index 20.5 Appearance: Alert. Oriented X3. No acute distress. Eyes: Pupils equal, round and reactive to light. ENT: Pharynx bilateral exudates and tonsilar swelling moderate, tolerating secretions, no muffled voice, swollen neck glands R > L no trismus no sublingual or submandibular swelling, uvula is midline Neck: Normal inspection. Neck supple. CVS: Normal heart rate and rhythm. Pulses normal. Respiratory: No respiratory distress. Breath sounds normal. Abdomen: Soft and nontender. Skin: Skin warm and dry. Normal skin color. Normal skin turgor. Extremities: No lower extremity edema. Neuro: Oriented X 3. No motor deficit. No sensory deficit. 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 [employer] or retropharyngeal abscess + GAS will start on amoxicillin and give strict return precautions Differential Diagnosis Differential Diagnoses: The differential diagnosis associated with the presentation includes strep throat, covid, no uvula shift doubt [employer], no submandibular swelling, no trismus doubt deeper space infection Admission/Observation Consideration of admission/observation: Escalation of care including admission/observation considered tolerating PO stable for outpatient PO antibiotics Lab Data [facility] Lab Attestation statement: I reviewed the patient's lab results. Labs: Lab Results 05/03/23 05/03/23 Range/Units 02:21 02:21 COVID-19 (SHARRON) Negative (Negative) COVID-19 Clin Com See Note S. pyogenes GrpA FANNY Positive A (Negative) Prescription Management I considered prescription management with: Antibiotic po amoxicillin Discharge Plan Discharge Clinical Impression: Strep throat Patient Disposition: Home, Self-Care Instructions: Strep Throat (ED) Additional Instructions: return for worsening symptoms, inability to swallow, difficulty breathing, no improvement on antibiotics or any other concerns. take antibiotic with probiotic take full course of antibiotic Prescriptions: New amoxicillin 500 mg tablet 500 mg PO BID Qty: 20 0RF No Action omeprazole 20 mg capsule,delayed release(DR/EC) 20 mg PO DAILY 90 Days Qty: 90 3RF lidocaine HCl [Lidocaine Viscous] 2 % solution 1 appl mucous membrane BID PRN (Reason: pain) Qty: 600 0RF ondansetron 4 mg tablet,disintegrating 4 mg PO Q8H PRN (Reason: nausea and vomiting) Qty: 20 0RF docusate sodium 100 mg capsule 100 mg PO BEDTIME Qty: 90 3RF polyethylene glycol 3350 [Miralax] 17 gram/dose powder 17 g PO DAILY Qty: 510 2RF hydrocortisone [Proctosol HC] 2.5 % cream with perineal applicator 1 appl RI BID-QID PRN (Reason: hemorrhoids) Qty: 30 2RF sucralfate 100 mg/mL suspension 10 ml PO BEDTIME Qty: 400 3RF Stand Alone Forms: Work/School Release
[2023-05-03] MEDS: Amoxicillin 500 MG CAPSULE PO (03:01)
== END 2023-05-03 03:04 | disposition home or self-care (01) ==
PROVIDERS: Emergency Provider Emergency Medicine
DX: J02.0 Streptococcal pharyngitis (principal); J02.8 Acute pharyngitis due to other specified organisms; R13.10 Dysphagia, unspecified; Z20.822 Contact with and (suspected) exposure to COVID-19; Z20.828 Contact with and (suspected) exposure to other viral communicable diseases; Z79.899 Other long term (current) drug therapy
CPT/HCPCS: 87635; 87651; 99282; 99283

== ENCOUNTER 2023-09-10 17:26 | Emergency (ER) | payer OTHER, SELFPAY ==
--- NOTE | ~2023-09-10 | XR_ITS ---
EXAMINATION: XR KNEE, LEFT CLINICAL INFORMATION: Fall COMPARISON: Left knee radiograph from 08/26/2022 TECHNIQUE: Four views of the left knee. FINDINGS: No acute visible fracture or dislocation. Joint spaces and alignment are maintained. Small knee joint effusion. Soft tissues are unremarkable. XR/XR knee LT 4V IMPRESSION: 1. No acute visible fracture or dislocation. 2. Small knee joint effusion.
--- NOTE | ~2023-09-10 | XR_ITS ---
EXAMINATION: XR LUMBOSACRAL SPINE CLINICAL INFORMATION: Pain COMPARISON: None available. TECHNIQUE: Three views of the lumbosacral spine. FINDINGS: 5 nonrib-bearing lumbar-type vertebral bodies. No acute visible fracture or dislocation. Levocurvature of the thoracolumbar junction. Vertebral body heights and disc spaces are maintained. Posterior elements are intact. Paraspinal soft tissues are unremarkable. Mild fecal loading of the distal transverse colon. Bowel gas is nonobstructive. XR/XR lumbar spine 2-3V IMPRESSION: 1. No acute visible fracture or dislocation. 2. Levocurvature of the thoracolumbar junction. 3. Mild fecal loading of the distal transverse colon.
[2023-09-10 17:31] VITALS: BP 112/69; PULSE 87; RESP 16; TEMP 36.2; O2SAT 99; BMI 21.9
--- NOTE | 2023-09-10 17:31 | ED.GENADULT ---
HPI - General Adult General Chief complaint: Fall Stated complaint: Fall, lower back pain Time Seen by Provider: 09/10/23 17:56 Source: patient, RN notes reviewed and old records reviewed Mode of arrival: ambulatory Limitations: no limitations History of Present Illness HPI narrative: 27-year-old female presents for evaluation of lower back pain and left knee pain. Patient reports that she was walking on the stairs she slipped on the last few steps, approximately 5. She reports that she landed on her back and slid down the last 5 steps. She states that she is unsure if she struck her head but has no headache and there was no loss of consciousness. She complains of mild left elbow pain in addition to the left knee pain and lower back Denies any radiation of pain pain No numbness, tingling. No difficulty urinating Related Data Previous Rx's Medication Instructions Recorded ondansetron 4 mg disintegrating 4 mg PO Q8H PRN nausea and 08/05/22 tablet vomiting #20 tabs lidocaine HCl 2 % mucosal solution 1 appl mucous membrane BID PRN 12/25/22 (Lidocaine Viscous) pain #600 mL docusate sodium 100 mg capsule 100 mg PO BEDTIME #90 caps 02/11/23 hydrocortisone 2.5 % topical cream 1 appl [place] BID-QID PRN hemorrhoids 02/11/23 with perineal applicator #30 grams (Proctosol HC) polyethylene glycol 3350 17 17 g PO DAILY #510 grams 02/11/23 gram/dose oral powder (Miralax) sucralfate 100 mg/mL oral 10 ml PO BEDTIME #400 mL 02/11/23 suspension omeprazole 20 mg capsule,delayed 20 mg PO DAILY 90 days #90 caps 03/23/23 release amoxicillin 500 mg tablet 500 mg PO BID #20 tabs 05/03/23 Allergies Allergy/AdvReac Type Severity Reaction Status Date / Time No Known Allergies Allergy Verified 09/10/23 17:31 Review of Systems Constitutional: Constitutional: Denies chills and Denies fever(s) Cardiovascular: Cardiovascular: Denies chest pain Gastrointestinal: Gastrointestinal: Denies abdominal pain, Denies nausea and Denies vomiting Musculoskeletal: Musculoskeletal: Reports back pain, Reports arthralgias, Denies joint swelling, Denies limited range of motion and Denies tingling Integumentary/Breasts: Skin/Breast: Denies rash Neurologic: Denies tingling PMFSH Past Medical History Medical History Helicobacter pylori (H. pylori) No known health problems Surgical History History of esophagogastroduodenoscopy (EGD) Hx of wisdom tooth extraction Family History Family History Mother HTN (hypertension) Social History Social History Household Members: Family Alcohol intake: never Patient Tobacco Use Status: Former Tobacco user Advance Directives: No Advance Directives Information Provided: No Physical Exam ED Vital Signs: Vital Signs - 24 hr 09/10/23 17:31 Temperature 97.1 F Pulse Rate 87 Respiratory Rate 16 Blood Pressure 112/69 Pulse Oximetry 99 Oxygen Delivery Method Room Air BMI result Body Mass Index 21.9 Const General: healthy appearing, comfortable, no acute distress, alert and awake Nutritional Appearance: well nourished Orientation/consciousness: patient oriented x3 HENMT Head: Yes normocephalic and Yes atraumatic Eyes Eyelids: Yes eyelids normal Conjunctivae: conjunctivae normal Sclerae: sclerae normal Corneas: corneas normal Pupils: Equal, round and reactive pupils present EOM: EOMs intact bilaterally Neck Neck: Yes full ROM Resp Effort & Inspection: normal respiratory effort, able to speak in complete sentences and not labored GI Inspection: No distended Palpation (GI): Soft to palpation, not firm, nontender, no guarding and not rigid Back/Spine/Pelvis Other: Minor lumbar vertebral tenderness without step-offs or deformities. Skin General skin exam: elasticity normal Neuro General: patient oriented x3 Cranial nerves: Yes Equal, round and reactive pupils present and Yes Bilaterally intact EOM present Cognition (Neuro): normal cognition Extrem Other: Moving all extremities well without any obvious deformities. Mild tenderness of the left knee without deformity. Full range of motion with flexion extension of the knee. Patient has full range motion left elbow with flexion extension, pronation, supination Course Course Course Narrative: RME- 27 year old female presents for evaluation of lower back pain and left knee pain after a fall. She reports that she slipped down approximately 5 steps Medical Decision Making Medical Decision Making MDM Narrative: 27-year-old female presents for evaluation lower back and left knee pain mostly after a fall. She also complains of mild left elbow pain. There is no obvious deformity to the elbow, she has full range of motion, no edema. Will get x-ray of the lumbar spine and left knee. Differential Diagnosis Differential Diagnoses: The differential diagnosis associated with the presentation includes Contusion Muscle strain Compression fracture Left knee sprain Lab Data Labs: Lab Results 09/10/23 Range/Units 18:10 Urine Test NEGATIVE (NEGATIVE) Radiology Impression Discussion of test interpretation with radiology: I have reviewed the radiologist's reading. (Small left knee joint effusion, no vertebral fracture) Discharge Plan Discharge Clinical Impression: Contusion Patient Disposition: Home, Self-Care Instructions: Contusion in Adults (ED) Additional Instructions: Your x-rays show no evidence of fracture. Use Ibuprofen/Tylenol for pain Follow-up primary doctor Prescriptions: No Action omeprazole 20 mg capsule,delayed release(DR/EC) 20 mg PO DAILY 90 Days Qty: 90 3RF amoxicillin 500 mg tablet 500 mg PO BID Qty: 20 0RF lidocaine HCl [Lidocaine Viscous] 2 % solution 1 appl mucous membrane BID PRN (Reason: pain) Qty: 600 0RF ondansetron 4 mg tablet,disintegrating 4 mg PO Q8H PRN (Reason: nausea and vomiting) Qty: 20 0RF docusate sodium 100 mg capsule 100 mg PO BEDTIME Qty: 90 3RF polyethylene glycol 3350 [Miralax] 17 gram/dose powder 17 g PO DAILY Qty: 510 2RF hydrocortisone [Proctosol HC] 2.5 % cream with perineal applicator 1 appl LA BID-QID PRN (Reason: hemorrhoids) Qty: 30 2RF sucralfate 100 mg/mL suspension 10 ml PO BEDTIME Qty: 400 3RF
[2023-09-10 18:20] LABS: UPreg QC Valid YES; Urine Pregnancy NEGATIVE (NEGATIVE)
== END 2023-09-10 20:04 | disposition home or self-care (01) ==
PROVIDERS: Physician Assistant; Emergency Provider Emergency Medicine
DX: S30.0XXA Contusion of lower back and pelvis, initial encounter (principal); S50.02XA Contusion of left elbow, initial encounter; W10.9XXA Fall (on) (from) unspecified stairs and steps, initial encounter; M25.462 Effusion, left knee; Y93.9 Activity, unspecified; Y92.9 Unspecified place or not applicable; Y99.9 Unspecified external cause status
CPT/HCPCS: 72100; 73564; 81025; 99282; 99283

== ENCOUNTER 2023-10-16 00:56 | Emergency (ER) | payer OTHER, SELFPAY ==
[2023-10-16 00:57] VITALS: BP 116/69; PULSE 82; RESP 18; TEMP 36.6; O2SAT 99; BMI 23.3
[2023-10-16 01:19] LABS: Appearance Urine Cloudy; Color Urine Yellow; Glucose Urine UA Negative (Negative); Leukocyte Esterase Urine Negative (Negative); Nitrite Urine Negative (Negative); PH 5.5 (5.0-9.0); Specific Gravity - Urine >= 1.030 (1.005-1.025); UMIC TRIGGER UACC YES; Urine Blood Trace (Negative); Urine Ketones Trace mg/dL (Negative); Urine Protein Trace mg/dL (Neg-Trace)
[2023-10-16 01:31] LABS: Bacteria Urine 3+ (None Seen); Hyaline Casts Urine 0-2 /LPF (0-2); RBC Urine 0-2 /HPF (0-2); UACC Culture Trigger YES
[2023-10-16 01:32] LABS: MANUAL DIFF FLAG NO
[2023-10-16 01:37] LABS: Basophils Percent Auto 0.5 % (0-2); Eosinophils Absolute Auto 0.5 X10*3/uL (0.0-0.4); Hematocrit 34.2 % (37.0-47.0); Hemoglobin 11.8 g/dl (12.0-16.0); Imm Gran Abs Auto 0.04 X10*3/uL (0.00-0.03); Imm Gran Pct Auto 0.5 % (0.0-0.4); Lymphocytes Absolute Auto 2.5 X10*3/uL (1.2-4.9); Lymphocytes Percent Auto 29.5 % (20-40); Mean Corpuscular HGB Conc 34.5 g/dl (31.0-35.0); Mean Corpuscular Hemoglobin 30.3 pg (27.0-33.0); Mean Corpuscular Volume 87.7 fL (80.0-98.0); Mean Platelet Volume 9.8 fL (9.4-12.3); Monocytes Absolute Auto 0.5 X10*3/uL (0.1-1.2); Monocytes Percent Auto 5.9 % (2-11); Neutrophils Absolute Auto 4.9 x10*3/uL (2.0-8.3); Neutrophils Percent Auto 57.6 % (45-73); Platelet Count 231 X10*3/uL (160-400); Red Cell Distribution Width 12.5 % (11.0-16.0); White Blood Count 8.5 X10*3/uL (4.8-10.8)
[2023-10-16 02:00] LABS: Anion Gap 11 (12-20); Blood Urea Nitrogen 19 mg/dL (9-16); Calcium 8.7 mg/dL (8.4-10.2); Carbon Dioxide 21 mmol/L (22-29); Chloride 112 mmol/L (96-108); Creatinine Clr Calc Pharmacy 88.5; Estimated Glomerular Filt Rate > 60; Glucose Random 95 mg/dL (60-115); Potassium 3.5 mmol/L (3.3-5.1); Sodium 140 mmol/L (135-145)
[2023-10-16 02:08] LABS: HCG Quantitative 119 mIU/mL
--- NOTE | 2023-10-16 02:58 | ED.GENADULT ---
HPI - General Adult General Chief complaint: General Medical Stated complaint: chronic fatigue Time Seen by Provider: 10/16/23 02:58 Source: patient and family Mode of arrival: ambulatory Limitations: no limitations History of Present Illness HPI narrative: A 27-year-old female came in for evaluation feeling tired, nauseous especially in the morning with no active vomiting, a minor lower abdominal cramps that is similar to the cramps she get before her periods, no fever, no chills, no vomiting, no SOB, no vaginal bleed, no vaginal discharge. Patient stated that her menstrual cycle is late 20 days. No dysuria, no frequency urination, no blood in the urine. Related Data Previous Rx's Medication Instructions Recorded ondansetron 4 mg disintegrating 4 mg PO Q8H PRN nausea and 08/05/22 tablet vomiting #20 tabs lidocaine HCl 2 % mucosal solution 1 appl mucous membrane BID PRN 12/25/22 (Lidocaine Viscous) pain #600 mL docusate sodium 100 mg capsule 100 mg PO BEDTIME #90 caps 02/11/23 hydrocortisone 2.5 % topical cream 1 appl [place] BID-QID PRN hemorrhoids 02/11/23 with perineal applicator #30 grams (Proctosol HC) polyethylene glycol 3350 17 17 g PO DAILY #510 grams 02/11/23 gram/dose oral powder (Miralax) sucralfate 100 mg/mL oral 10 ml PO BEDTIME #400 mL 02/11/23 suspension omeprazole 20 mg capsule,delayed 20 mg PO DAILY 90 days #90 caps 03/23/23 release amoxicillin 500 mg tablet 500 mg PO BID #20 tabs 05/03/23 Allergies Allergy/AdvReac Type Severity Reaction Status Date / Time No Known Allergies Allergy Verified 09/10/23 17:31 Review of Systems Review of Systems: All other systems are reviewed and are negative Constitutional: Reports as per HPI and Reports no additional constitutional complaints Eyes: Reports as per HPI and Reports no additional eye complaints Reports system reviewed and no additional complaints, except as documented Cardiovascular: Reports as per HPI and Reports no additional cardiovascular complaints Respiratory: Reports as per HPI and Reports no additional respiratory complaints Gastrointestinal: Reports as per HPI and Reports no additional gastrointestinal complaints Genitourinary: Reports no additional female genitourinary complaints Musculoskeletal: Reports no additional musculoskeletal complaints Skin/Breast: Reports system reviewed and no additional complaints, except as docu Psychiatric: Reports no additional psychiatric complaints Endocrine: Reports no additional endocrine complaints Hematologic/Lymphatic: Reports no additional hematologic/lymphatic complaints Allergic/Immunologic: Reports no additional allergic/immunologic complaints Reports system reviewed and no additional complaints, except as documented and Reports Abnormal speech present PMFSH Past Medical History Onset Date is defined in the Problem List Problems that require an onset date and time if occurred within 24 hrs of arrival to the ED Aortic Dissection and Rupture; Neurologic impairment; Cardiopulmonary Arrest; Endotracheal Intubation; Insertion or Replacement of Mechanical Circulatory Assist Device Medical History Helicobacter pylori (H. pylori) No known health problems Surgical History History of esophagogastroduodenoscopy (EGD) Hx of wisdom tooth extraction Family History Family History Mother HTN (hypertension) Social History Social History Household Members: Family Alcohol intake: current Alcohol intake frequency: holidays/special occasions only Patient Tobacco Use Status: Former Tobacco user Smoked in Last 30 Days: Yes Use of substances other than those prescribed or required for medical reasons: No Advance Directives: No Advance Directives Information Provided: No Patient : No (pt concern she might be) Physical Exam ED Vital Signs: Vital Signs - 24 hr 10/16/23 00:57 Temperature 97.8 F Pulse Rate 82 Respiratory Rate 18 Blood Pressure 116/69 Pulse Oximetry 99 Oxygen Delivery Method Room Air BMI result Body Mass Index 23.3 Vital signs have been reviewed and appear to be correct. Blood pressure elevated. Heart rate normal. Respiratory rate normal. Temperature normal. Oxygen saturation normal. Appearance: Alert. Oriented X3. No acute distress. Head: Normal external exam. Normocephalic. Atraumatic. No [place] signs noted. No raccoon eyes noted Eyes: PERRLA. EOMI. Conjunctiva and sclera normal. Eyelids normal. ENT: TM's Normal. Pharynx normal. Uvula midline. Moist mucous membranes. No trismus noted. No drooling noted. No muffled voice noted. Neck: Normal inspection. Neck supple. FROM. No adenopathy. Thyroid Normal. No meningeal signs. No neck mass noted. CVS: Normal heart rate and rhythm. Heart sound normal. No murmurs noted. Pulses normal throughout. Respiratory: No respiratory distress. Painless inspiration. Breath sounds normal. No wheezes/rales/rhonchi noted. Chest nontender. No accessory muscle usage noted or decreased air movement noted. Abdomen: Soft and nontender. Bowel sounds normal in all 4 quadrants. No distention noted. No organomegaly noted. No visible injury noted. Back: No CVA tenderness. Full range of motion noted. Skin: Skin warm and dry. Normal skin color. Normal skin turgor. No rashes/lesions/lacerations noted. Extremities: No lower extremity edema. Extremities exhibit normal range of motion. Extremities nontender. Neuro: Oriented X 3. Cranial nerve exam: II-XII are grossly intact No motor deficit. No sensory deficit. Reflexes normal. Course Reevaluation(s) Reevaluation #1: 27-year-old female came in with feeling nauseous and generalized fatigue with positive serum HCG findings and exam is consistent with early . However pelvic ultrasound is not available at this time in our facility tonight and felt patient does not need emergent ultrasound. Patient will follow-up with Dr. Bella as an outpatient for her care. Blood type is AB-positive. Time: 03:10 Medical Decision Making Differential Diagnosis Differential Diagnoses: The differential diagnosis associated with the presentation includes (Electrolyte abnormality, early , anemia, UTI.) Admission/Observation Consideration of admission/observation: Escalation of care including admission/observation considered Lab Data MDM Lab Attestation statement: I reviewed the patient's lab results. 10/16/23 01:21 10/16/23 01:21 Labs: Lab Results 10/16/23 10/16/23 Range/Units 01:14 01:21 WBC 8.5 (4.8-10.8) X10*3/uL RBC 3.90 L (4.20-5.50) X10*6/uL Hgb 11.8 L (12.0-16.0) g/dl Hct 34.2 L (37.0-47.0) % MCV 87.7 (80.0-98.0) fL MCH 30.3 (27.0-33.0) pg MCHC 34.5 (31.0-35.0) g/dl RDW 12.5 (11.0-16.0) % Plt Count 231 D (160-400) X10*3/uL MPV 9.8 (9.4-12.3) fL Immature Gran % (Auto) 0.5 H (0.0-0.4) % Neut % (Auto) 57.6 (45-73) % Lymph % (Auto) 29.5 (20-40) % [place] % (Auto) 5.9 (2-11) % Eos % (Auto) 6.0 H (0-4) % Baso % (Auto) 0.5 (0-2) % Lymph # (Auto) 2.5 (1.2-4.9) X10*3/uL [place] # (Auto) 0.5 (0.1-1.2) X10*3/uL Eos # (Auto) 0.5 H (0.0-0.4) X10*3/uL Baso # (Auto) 0.0 (0.0-0.2) X10*3/uL Abs Immat Gran (auto) 0.04 H (0.00-0.03) X10*3/uL Absolute Neuts (auto) 4.9 (2.0-8.3) x10*3/uL Absolute Nucleated RBC 0.000 (0.0-0.012) X10*3/uL Nucleated RBC % (auto) 0.0 (0.0-0.2) /100WBC Sodium 140 (135-145) mmol/L Potassium 3.5 (3.3-5.1) mmol/L Chloride 112 H (96-108) mmol/L Carbon Dioxide 21 L (22-29) mmol/L Anion Gap 11 L (12-20) BUN 19 H (9-16) mg/dL Creatinine 0.68 (0.5-1.4) mg/dL Estim Creat Clear Calc 88.5 Estimated GFR > 60 Random Glucose 95 (60-115) mg/dL Calcium 8.7 (8.4-10.2) mg/dL Beta HCG, Quant 119 mIU/mL Urine Color Yellow Urine Appearance Cloudy Urine pH 5.5 (5.0-9.0) Ur Specific [place] >= 1.030 H (1.005-1.025) Urine Protein Trace (Neg-Trace) mg/dL Urine Glucose (UA) Negative (Negative) mg/dL Urine Ketones Trace (Negative) mg/dL Urine Blood Trace H (Negative) Urine Nitrite Negative (Negative) Ur Leukocyte Esterase Negative (Negative) Urine RBC 0-2 (0-2) /HPF Urine WBC 6-10 (0-5) /HPF Ur Squamous Epith Cells 6-10 (0-2) /HPF Urine Bacteria 3+ (None Seen) Hyaline Casts 0-2 (0-2) /LPF Discharge Plan Discharge Clinical Impression: First trimester Patient Disposition: Home, Self-Care Instructions: First Trimester (ED) Additional Instructions: Seek immediate medical attention if any abdominal pain or vaginal bleeding otherwise follow-up with Dr. Bella for care. Prescriptions: No Action omeprazole 20 mg capsule,delayed release(DR/EC) 20 mg PO DAILY 90 Days Qty: 90 3RF amoxicillin 500 mg tablet 500 mg PO BID Qty: 20 0RF lidocaine HCl [Lidocaine Viscous] 2 % solution 1 appl mucous membrane BID PRN (Reason: pain) Qty: 600 0RF ondansetron 4 mg tablet,disintegrating 4 mg PO Q8H PRN (Reason: nausea and vomiting) Qty: 20 0RF docusate sodium 100 mg capsule 100 mg PO BEDTIME Qty: 90 3RF polyethylene glycol 3350 [Miralax] 17 gram/dose powder 17 g PO DAILY Qty: 510 2RF hydrocortisone [Proctosol HC] 2.5 % cream with perineal applicator 1 appl [place] BID-QID PRN (Reason: hemorrhoids) Qty: 30 2RF sucralfate 100 mg/mL suspension 10 ml PO BEDTIME Qty: 400 3RF Referrals: Ramírez Bella MD [Physician] -
[2023-10-16 03:22] VITALS: BP 109/77; PULSE 95; RESP 16; O2SAT 97
== END 2023-10-16 03:31 | disposition home or self-care (01) ==
PROVIDERS: Emergency Provider Emergency Medicine
DX: R53.83 Other fatigue (principal); R11.2 Nausea with vomiting, unspecified; R25.2 Cramp and spasm; Z79.899 Other long term (current) drug therapy
CPT/HCPCS: 36415; 80048; 81001; 84702; 85025; 87086; 99283; 99284

== ENCOUNTER 2023-10-18 14:52 | Outpatient (REF) | payer OTHER, SELFPAY ==
[2023-10-18 16:02] LABS: HCG Quantitative 352 mIU/mL
== END 2023-10-18 14:53 | disposition home or self-care (01) ==
LOC: HO.LAB 14:52
PROVIDERS: Visit Provider Advanced Practice Midwife
DX: N91.2 Amenorrhea, unspecified (principal)
CPT/HCPCS: 36415; 84702

== ENCOUNTER 2023-10-23 18:10 | Emergency (ER) | payer OTHER, SELFPAY ==
--- NOTE | ~2023-10-23 | US_ITS ---
EXAMINATION: US OBSTETRICAL ULTRASOUND CLINICAL INFORMATION: Pain, rule out ectopic COMPARISON: None available. LMP: None. Gestational age by maternal dates is unknown. Estimated date of delivery by maternal dates is unknown. TECHNIQUE: Transabdominal and transvaginal imaging of pelvis is performed FINDINGS: The uterus is anteverted with intrauterine distal sac. No Visible yolk sac, embryo/fetus, or cardiac activity seen. There is no significant subchorionic hemorrhage or hematoma. HR: Not visualized Fetus is not seen. MATERNAL ADNEXA: The right maternal ovary measures 2.0 x 1.5 x 1.8 cm. It appears unremarkable The left maternal ovary measures 4.4 x 3.3 x 3.1 cm. There is anechoic cyst measuring 2.8 x 2.4 x 2.7 cm. There is normal arterial and venous flow seen to both ovaries on Doppler exam. There is no significant maternal adnexal mass. There is moderate free fluid in the right adnexa. US/US OB pelvic and transvaginal IMPRESSION: Single gestational sac without any pole, yolk sac or cardiac activity. The distal sac measurements correspond to 5 weeks 0 days Moderate free fluid in the right adnexa. Simple cyst left ovary.
[2023-10-23 18:13] VITALS: BP 115/54; PULSE 85; RESP 18; TEMP 37; O2SAT 100; BMI 23.4
--- NOTE | 2023-10-23 19:15 | ED_ITS ---
HPI - General Adult General Chief complaint: General Medical Stated complaint: 1st trimester, spotting since tuesday Time Seen by Provider: 10/23/23 18:46 Source: patient, RN notes reviewed and old records reviewed Mode of arrival: ambulatory Limitations: no limitations History of Present Illness HPI narrative: 27-year-old female presents for evaluation of lower abdominal pain. She reports that she found out last week that she is She has not yet followed up with OBGYN but has an appointment pending She states that she had some spotting when wiping 6 days ago but no bleeding since. She complains of some mild left lower abdominal discomfort Patient reports a previous miscarriage and is therefore concerned about her symptoms Related Data Previous Rx's Medication Instructions Recorded ondansetron 4 mg disintegrating 4 mg PO Q8H PRN nausea and 08/05/22 tablet vomiting #20 tabs lidocaine HCl 2 % mucosal solution 1 appl mucous membrane BID PRN 12/25/22 (Lidocaine Viscous) pain #600 mL docusate sodium 100 mg capsule 100 mg PO BEDTIME #90 caps 02/11/23 hydrocortisone 2.5 % topical cream 1 appl AR BID-QID PRN hemorrhoids 02/11/23 with perineal applicator #30 grams (Proctosol HC) polyethylene glycol 3350 17 17 g PO DAILY #510 grams 02/11/23 gram/dose oral powder (Miralax) sucralfate 100 mg/mL oral 10 ml PO BEDTIME #400 mL 02/11/23 suspension omeprazole 20 mg capsule,delayed 20 mg PO DAILY 90 days #90 caps 03/23/23 release amoxicillin 500 mg tablet 500 mg PO BID #20 tabs 05/03/23 Allergies Allergy/AdvReac Type Severity Reaction Status Date / Time No Known Allergies Allergy Verified 10/23/23 18:17 Review of Systems 2 Constitutional: Constitutional: Denies chills and Denies fever(s) Eyes: Eyes: Denies blurry vision Cardiovascular: Cardiovascular: Denies chest pain and Denies dyspnea Respiratory: Respiratory: Denies cough and Denies dyspnea Gastrointestinal: Gastrointestinal: Reports abdominal pain, Denies nausea and Denies vomiting Genitourinary: Genitourinary: Reports pelvic pain Comments: Blood with wiping Musculoskeletal: Musculoskeletal: Denies back pain Integumentary/Breasts: Skin/Breast: Denies rash PMFSH Past Medical History Medical History Helicobacter pylori (H. pylori) No known health problems Surgical History History of esophagogastroduodenoscopy (EGD) Hx of wisdom tooth extraction Family History Family History Mother HTN (hypertension) Social History Social History Household Members: Family Alcohol intake: current Alcohol intake frequency: holidays/special occasions only Patient Tobacco Use Status: Former Tobacco user Advance Directives: No Advance Directives Information Provided: No Physical Exam ED Vital Signs: Vital Signs - 24 hr 10/23/23 18:13 Temperature 98.6 F Pulse Rate 85 Respiratory Rate 18 Blood Pressure 115/54 L Pulse Oximetry 100 Oxygen Delivery Method Room Air BMI result Body Mass Index 23.4 Const General: healthy appearing, comfortable, no acute distress, alert and awake Nutritional Appearance: well nourished Orientation/consciousness: patient oriented x3 HENMT Head: Yes normocephalic and Yes atraumatic Eyes Eyelids: Yes eyelids normal Conjunctivae: conjunctivae normal Sclerae: sclerae normal Corneas: corneas normal Pupils: Equal, round and reactive pupils present EOM: EOMs intact bilaterally Neck Neck: Yes full ROM Resp Effort & Inspection: normal respiratory effort, able to speak in complete sentences and not labored GI Other: Tenderness in the left suprapubic region without guarding. Inspection: No distended Palpation (GI): Soft to palpation, not firm, Tenderness to palpation present (GI) in the LLQ and suprapubicly, no guarding and not rigid Auscultation: normoactive bowel sounds Neuro General: patient oriented x3 Cranial nerves: Yes Equal, round and reactive pupils present and Yes Bilaterally intact EOM present Cognition (Neuro): normal cognition Extrem Other: Moving all extremities well without any obvious deformities Course Reevaluation(s) Reevaluation #1: Patient's ultrasound shows no pole, yolk sac or heart rate. At an estimated 5 weeks, this is very concerning for an inevitable . I discussed these findings with the patient and encouraged her to call her OBGYN the morning. Her blood type is AB-positive. Patient be discharged after all questions were answered Time: 20:35 Medications Administered Discontinued Medications Generic Name Dose Route Start Last Admin Trade Name Shaun PRN Reason Stop Dose Admin Acetaminophen 650 mg 10/23/23 18:54 10/23/23 19:17 Acetaminophen 325 Mg Tablet PO 10/23/23 18:55 650 mg ONCE ONE Administration Medical Decision Making Medical Decision Making [facility] Narrative: [age] old female presents for evaluation of lower abdominal pain. Plan for HCG, ultrasound to evaluate/rule out ectopic . Patient does appear quite comfortable. We will also get a UA with labs Differential Diagnosis Differential Diagnoses: The differential diagnosis associated with the presentation includes Abdominal pain Threatened Missed Ectopic UTI Obstructive uropathy Lab Data 10/23/23 18:33 Labs: Lab Results 10/23/23 10/23/23 Range/Units 18:29 18:33 WBC 7.8 (4.8-10.8) X10*3/uL RBC 4.19 L (4.20-5.50) X10*6/uL Hgb 12.8 (12.0-16.0) g/dl Hct 37.1 (37.0-47.0) % MCV 88.5 (80.0-98.0) fL MCH 30.5 (27.0-33.0) pg MCHC 34.5 (31.0-35.0) g/dl RDW 12.9 (11.0-16.0) % Plt Count 230 (160-400) X10*3/uL MPV 11.0 (9.4-12.3) fL Immature Gran % (Auto) 0.5 H (0.0-0.4) % Neut % (Auto) 64.7 (45-73) % Lymph % (Auto) 23.4 (20-40) % Lake % (Auto) 6.2 (2-11) % Eos % (Auto) 4.7 H (0-4) % Baso % (Auto) 0.5 (0-2) % Lymph # (Auto) 1.8 (1.2-4.9) X10*3/uL [place] # (Auto) 0.5 (0.1-1.2) X10*3/uL Eos # (Auto) 0.4 (0.0-0.4) X10*3/uL Baso # (Auto) 0.0 (0.0-0.2) X10*3/uL Abs Immat Gran (auto) 0.04 H (0.00-0.03) X10*3/uL Absolute Neuts (auto) 5.0 (2.0-8.3) x10*3/uL Absolute Nucleated RBC 0.000 (0.0-0.012) X10*3/uL Nucleated RBC % (auto) 0.0 (0.0-0.2) /100WBC Total Bilirubin 0.4 (0.0-1.0) mg/dL Direct Bilirubin 0.2 (0.0-0.5) mg/dL AST 15 (5-31) U/L ALT 19 (0-31) U/L Alkaline Phosphatase 78 (39-117) U/L Total Protein 7.1 (6.5-8.0) g/dL Albumin 4.0 (3.5-5.0) g/dL Lipase 20 (8-78) U/L Beta HCG, Quant 3962 mIU/mL Urine Color Yellow Urine Appearance Clear Urine pH 7.0 (5.0-9.0) Ur Specific [place] 1.025 (1.005-1.025) Urine Protein Negative (Neg-Trace) mg/dL Urine Glucose (UA) Negative (Negative) mg/dL Urine Ketones Negative (Negative) mg/dL Urine Blood Trace H (Negative) Urine Nitrite Negative (Negative) Ur Leukocyte Esterase Trace H (Negative) Urine RBC 0-2 (0-2) /HPF Urine WBC 0-5 (0-5) /HPF Ur Squamous Epith Cells 3-5 (0-2) /HPF Urine Bacteria Trace (None Seen) Hyaline Casts 0-2 (0-2) /LPF Discharge Plan Discharge Clinical Impression: , threatened Patient Disposition: Home, Self-Care Instructions: Threatened Miscarriage (ED) Additional Instructions: Unfortunately, your ultrasound was very concerning for an impending miscarriage. There is no visible yolk sac, embryo/fetus or cardiac activity seen. This far along, it would be expected to see these structures Call your OBGYN tomorrow to let them know we are concerned that you may have a miscarriage Return for new or worsening symptoms Prescriptions: No Action omeprazole 20 mg capsule,delayed release(DR/EC) 20 mg PO DAILY 90 Days Qty: 90 3RF amoxicillin 500 mg tablet 500 mg PO BID Qty: 20 0RF lidocaine HCl [Lidocaine Viscous] 2 % solution 1 appl mucous membrane BID PRN (Reason: pain) Qty: 600 0RF ondansetron 4 mg tablet,disintegrating 4 mg PO Q8H PRN (Reason: nausea and vomiting) Qty: 20 0RF docusate sodium 100 mg capsule 100 mg PO BEDTIME Qty: 90 3RF polyethylene glycol 3350 [Miralax] 17 gram/dose powder 17 g PO DAILY Qty: 510 2RF hydrocortisone [Proctosol HC] 2.5 % cream with perineal applicator 1 appl AR BID-QID PRN (Reason: hemorrhoids) Qty: 30 2RF sucralfate 100 mg/mL suspension 10 ml PO BEDTIME Qty: 400 3RF Stand Alone Forms: Work/School Release
[2023-10-23] MEDS: Acetaminophen 325 MG TABLET 650 MG PO (19:17)
[2023-10-23 19:22] LABS: MANUAL DIFF FLAG NO
[2023-10-23 19:23] LABS: Basophils Percent Auto 0.5 % (0-2); Eosinophils Absolute Auto 0.4 X10*3/uL (0.0-0.4); Eosinophils Percent Auto 4.7 % (0-4); Hematocrit 37.1 % (37.0-47.0); Hemoglobin 12.8 g/dl (12.0-16.0); Imm Gran Abs Auto 0.04 X10*3/uL (0.00-0.03); Imm Gran Pct Auto 0.5 % (0.0-0.4); Lymphocytes Absolute Auto 1.8 X10*3/uL (1.2-4.9); Lymphocytes Percent Auto 23.4 % (20-40); Mean Corpuscular HGB Conc 34.5 g/dl (31.0-35.0); Mean Corpuscular Hemoglobin 30.5 pg (27.0-33.0); Mean Corpuscular Volume 88.5 fL (80.0-98.0); Monocytes Absolute Auto 0.5 X10*3/uL (0.1-1.2); Monocytes Percent Auto 6.2 % (2-11); Neutrophils Percent Auto 64.7 % (45-73); Platelet Count 230 X10*3/uL (160-400); Red Blood Count 4.19 X10*6/uL (4.20-5.50); Red Cell Distribution Width 12.9 % (11.0-16.0); White Blood Count 7.8 X10*3/uL (4.8-10.8)
[2023-10-23 19:25] LABS: Appearance Urine Clear; Color Urine Yellow; Glucose Urine UA Negative (Negative); Leukocyte Esterase Urine Trace (Negative); Nitrite Urine Negative (Negative); Specific Gravity - Urine 1.025 (1.005-1.025); UMIC TRIGGER UACC YES; Urine Blood Trace (Negative); Urine Ketones Negative (Negative); Urine Protein Negative (Neg-Trace)
[2023-10-23 19:30] LABS: Bacteria Urine Trace (None Seen); Hyaline Casts Urine 0-2 /LPF (0-2); RBC Urine 0-2 /HPF (0-2); WBC Urine 0-5 /HPF (0-5)
--- NOTE | 2023-10-23 19:45 | PC.NURSE ---
pt a&ox4. reporting lower abd cramping that is sometimes on the left and sometimes on the right. pt reports one episode of pink blood when they wiped four days ago but non since
[2023-10-23 19:49] LABS: Alanine Aminotransferase 19 U/L (0-31); Alkaline Phosphatase 78 U/L (39-117); Aspartate Amino Transferase 15 U/L (5-31); Bilirubin Direct 0.2 mg/dL (0.0-0.5); Bilirubin Total 0.4 mg/dL (0.0-1.0); Lipase 20 U/L (8-78); Total Protein 7.1 g/dL (6.5-8.0)
[2023-10-23 19:50] LABS: HCG Quantitative 3962 mIU/mL
== END 2023-10-23 20:53 | disposition home or self-care (01) ==
PROVIDERS: Physician Assistant; Emergency Provider Internal Medicine
DX: O20.0 Threatened abortion (principal); Z3A.01 Less than 8 weeks gestation of pregnancy; Z79.899 Other long term (current) drug therapy
CPT/HCPCS: 36415; 76801; 76817; 80076; 81001; 83690; 84702; 85025; 99283; 99284

== ENCOUNTER 2023-10-25 07:49 | Outpatient (REF) | payer OTHER, SELFPAY ==
[2023-10-25 08:47] LABS: HCG Quantitative 6445 mIU/mL
[2023-10-25 14:09] LABS: CT PCR NOT DETECTED (Not Detect.); NG PCR NOT DETECTED (Not Detect.)
== END 2023-10-25 07:50 | disposition home or self-care (01) ==
LOC: HO.LAB 07:49
PROVIDERS: Visit Provider Obstetrics & Gynecology
DX: O20.0 Threatened abortion (principal); Z3A.01 Less than 8 weeks gestation of pregnancy; Z67.30 Type AB blood, Rh positive
CPT/HCPCS: 0353U; 36415; 84702; 99202

== ENCOUNTER 2023-10-25 08:19 | Outpatient (AMB) | payer OTHER, SELFPAY ==
--- NOTE | 2023-10-25 08:20 | A.OFFVIS_ITS ---
Intake Vital Signs 10/25/23 08:21 Height 4 ft 10 in Weight 110 lb 3.698 oz BMI 23.0 BP 98/56 L Intake Visit Reasons: HCG follow up [employer] Required: No Information Interpreted: non-clinical & clinical Accompanied by: Significant Other Allergies No Known Allergies Allergy (Verified 10/25/23 08:23) HPI HPI Comments History of Present Illness Details The patient is presenting for follow-up from emergency room visit on 10/23 for pelvic cramping and spotting few days prior that resolved on the day of the ER visit. The following workup was done in the emergency room: HCG =3962, AB-positive, pelvic ultrasound showed the following: The uterus is anteverted with intrauterine distal sac. No Visible yolk sac, embryo/fetus, or cardiac activity seen. There is no significant subchorionic hemorrhage or hematoma. HR: Not visualized Fetus is not seen. MATERNAL ADNEXA: The right maternal ovary measures 2.0 x 1.5 x 1.8 cm. It appears unremarkable The left maternal ovary measures 4.4 x 3.3 x 3.1 cm. There is anechoic cyst measuring 2.8 x 2.4 x 2.7 cm. There is normal arterial and venous flow seen to both ovaries on Doppler exam. There is no significant maternal adnexal mass. There is moderate free fluid in the right adnexa. The patient is doing well since then no more vaginal spotting, still complaining of minimal pelvic cramping. No other symptoms. HCG repeated today was 6445, an increase of 62.7% from 48 hours ago [facility] Medical History Helicobacter pylori (H. 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 [employer] Sexual orientation: Straight/Heterosexual Gender identity: Female Review of Systems Const All systems reviewed & are unremarkable except as noted in HPI and below Physical Exam Vital Signs: Last Vital Signs BP 98/56 L 10/25/23 08:21 BMI result Body Mass Index 23.0 General: Yes no CVA tenderness External Female Exam: normal external appearance and normal appearance of the urethra Speculum Exam - Vagina: normal appearance of the vagina, normal palpation, no lesions and no masses Speculum Exam - Cervix: normal appearance of the cervix, normal palpation, no lesions, no masses and nontender Bimanual exam- vagina & uterus: normal bimanual exam, normal palpation, uterine size normal, normal palpation, uterine shape normal, No Cervical tenderness present and non-tender Bimanual Exam- Adnexa, other: normal adnexae Back/Spine/Pelvis Back: no CVA tenderness Assessment & Plan Assessment & Plan (1) Early stage of : Code(s): Z34.90 - Encounter for supervision of normal , unspecified, unspecified trimester Plan: GC/CT taken. SAB warnings given to patient, she is to call or go to emergency room in case of pelvic cramping and or vaginal bleeding. vitamin 1 tablet p.o. q.d. Will repeat ultrasound 2 weeks from previous ultrasound since there was a gestational stat without yolk sac , on or after 11/07 for follow-up. Instructions given the patient to schedule an ultrasound and a follow-up appointment in 2 weeks. All questions answered, the patient verbalized understanding Orders: Orders HCG Quantitative Today O20.0 - Threatened US OB limited 11/07/23 Z34.90 - Encounter for supervision of normal , unspecified, unspecified trimester CT NG by PCR Today Z34.90 - Encounter for supervision of normal , unspecified, unspecified trimester Coding Level of Care Code New Pt Level 3 (75836) Diagnoses Early stage of Z34.90
[2023-10-25 08:21] VITALS: BP 98/56; BMI 23.0
== END 2023-10-25 09:18 | disposition home or self-care (01) ==
PROVIDERS: Visit Provider Obstetrics & Gynecology
DX: Z34.90 Encounter for supervision of normal pregnancy, unspecified, unspecified trimester (principal)
CPT/HCPCS: 99203

== ENCOUNTER 2023-10-25 08:53 | Outpatient (REF) | payer OTHER, SELFPAY | END 2023-10-25 08:54 | disposition home or self-care (01) | LOC: HO.LNP 08:53 | PROVIDERS: Visit Provider Obstetrics & Gynecology | DX: Z13.89 Encounter for screening for other disorder (principal) ==

== ENCOUNTER 2023-10-28 01:28 | Emergency (ER) | payer OTHER, SELFPAY ==
--- NOTE | ~2023-10-28 | US_ITS ---
EXAMINATION: US OBSTETRICAL ULTRASOUND CLINICAL INFORMATION: First trimester with abdominal pain, rule out ectopic COMPARISON: 10/23/2023 LMP: Not available. Gestational age by maternal dates is 5 weeks 6 days. Estimated date of delivery by maternal dates is 06/23/2024. TECHNIQUE: Transabdominal and transvaginal FINDINGS: There is a single intrauterine gestational sac with small yolk sac,, measured approximately 0.29 cm embryo/fetus, and cardiac activity. There is no significant subchorionic hemorrhage or hematoma. HR: Not registered CRL (crown rump length): 0.22 cm corresponding to 5 weeks 5 days (with standard deviation of +/- 4 days). Gestational sac revealed deformity suggestive for empty second gestational sac versus small subchorionic bleed, correlate with progressive imaging. CAMELIA (estimated date of delivery): 06/23/2024 +/- 4 days. MATERNAL ADNEXA: The right maternal ovary measures 2.27 x 2.75 x 1.58 cm. The volume of right ovary 5.16 mL The left maternal ovary measures 3.31 x 3.0 x 4.28 cm. The volume of left ovary measured 22.2 mL. There is simple 3.0 x 3.3 x 2.8 cm cyst. There is no significant maternal adnexal mass. There is small maternal pelvic ascites. US/US OB pelvic and transvaginal IMPRESSION: 1. Single intrauterine gestation with ultrasound gestational age of 5 weeks, 6 days +/- 4 days. 2. Estimated date of delivery is 06/23/2024 +/- 4 days. 3. Left adnexal cyst and small pelvic ascites. 4. Deformity of gestational sac suggestive for endplate the second gestational sac versus small subchorionic bleed
[2023-10-28 01:32] VITALS: BP 114/55; PULSE 100; RESP 18; TEMP 36.8; O2SAT 98; BMI 23.1
--- NOTE | 2023-10-28 01:51 | PC.NURSE ---
pt noted to be eating a bag of chips on the way back from the waiting room. RN advised pt to not eat or drink anything further until she has received the okay from the provider and/or nursing staff. she verbalized understanding.
[2023-10-28 01:56] VITALS: BP 115/67; PULSE 89; RESP 16; TEMP 36.9; O2SAT 97
--- NOTE | 2023-10-28 02:48 | ED.GENADULT ---
HPI - General Adult General Chief complaint: General Medical Stated complaint: abd pain, discharge Time Seen by Provider: 10/28/23 02:10 Source: patient and family (Significant other) Mode of arrival: ambulatory Limitations: no limitations History of Present Illness HPI narrative: 27-year-old female in her 1st trimester LMP was about 8 weeks go with blood type of AB-positive had her 1st evaluation by Dr. Bella no ultrasound done for this yet, presented with lower abdominal tenderness and brownish discharge that is started today, feels more pain on the suprapubic and left lower quadrant area radiates to the back with no vaginal bleeding, no nausea, no vomiting. No trauma to the abdomen. No dysuria, no frequency urination the patient noticed bad odor to the urine. Related Data Previous Rx's Medication Instructions Recorded nitrofurantoin 100 mg PO BID #14 caps 10/28/23 monohydrate/macrocrystals 100 mg capsule (Macrobid) Allergies Allergy/AdvReac Type Severity Reaction Status Date / Time No Known Allergies Allergy Verified 10/25/23 08:23 Review of Systems Review of Systems: All other systems are reviewed and are negative Constitutional: Reports as per HPI and Reports no additional constitutional complaints Eyes: Reports as per HPI and Reports no additional eye complaints Reports system reviewed and no additional complaints, except as documented Cardiovascular: Reports as per HPI and Reports no additional cardiovascular complaints Respiratory: Reports as per HPI and Reports no additional respiratory complaints Gastrointestinal: Reports as per HPI and Reports no additional gastrointestinal complaints Genitourinary: Reports no additional female genitourinary complaints Musculoskeletal: Reports no additional musculoskeletal complaints Skin/Breast: Reports system reviewed and no additional complaints, except as docu Psychiatric: Reports no additional psychiatric complaints Endocrine: Reports no additional endocrine complaints Hematologic/Lymphatic: Reports no additional hematologic/lymphatic complaints Allergic/Immunologic: Reports no additional allergic/immunologic complaints Reports system reviewed and no additional complaints, except as documented and Reports Abnormal speech present [facility] Past Medical History Medical History Helicobacter pylori (H. 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 Blood pressure elevated. Heart rate normal. Respiratory rate normal. Temperature normal. Oxygen saturation normal. Appearance: Alert. Oriented X3. No acute distress. Head: Normal external exam. Normocephalic. Atraumatic. No Jean Baptiste signs noted. No raccoon eyes noted Eyes: PERRLA. EOMI. Conjunctiva and sclera normal. Eyelids normal. ENT: TM's Normal. Pharynx normal. Uvula midline. Moist mucous membranes. No trismus noted. No drooling noted. No muffled voice noted. Neck: Normal inspection. Neck supple. FROM. No adenopathy. Thyroid Normal. No meningeal signs. No neck mass noted. CVS: Normal heart rate and rhythm. Heart sound normal. No murmurs noted. Pulses normal throughout. Respiratory: No respiratory distress. Painless inspiration. Breath sounds normal. No wheezes/rales/rhonchi noted. Chest nontender. No accessory muscle usage noted or decreased air movement noted. Abdomen: Soft and nontender. Bowel sounds normal in all 4 quadrants. No distention noted. No organomegaly noted. No visible injury noted. Back: No CVA tenderness. Full range of motion noted. Skin: Skin warm and dry. Normal skin color. Normal skin turgor. No rashes/lesions/lacerations noted. Extremities: No lower extremity edema. Extremities exhibit normal range of motion. Extremities nontender. Neuro: Oriented X 3. Cranial nerve exam: II-XII are grossly intact No motor deficit. No sensory deficit. Reflexes normal. Course Reevaluation(s) Reevaluation #1: 5 weeks and 6 days had ultrasound 6 days ago shows almost same findings, await for official reading from the radiologist but when I reviewed the ultrasound normal right ovary, small cystic lesion on the left ovary unchanged from previous ultrasound 6 days ago. With hCG is doubled from 10/25. Blood type is AB-positive. Bad odor urine with trace of leukocyte esterase and 6-10 white count will start the patient on Macrobid. Sign out to Dr. Gusman to check on the official ultrasound reading. Time: 05:20 Medications Administered Discontinued Medications Generic Name Dose Route Start Last Admin Trade Name Freq PRN Reason Stop Dose Admin Acetaminophen 650 mg 10/28/23 02:46 10/28/23 03:32 Acetaminophen 325 Mg Tablet PO 10/28/23 02:47 650 mg ONCE ONE Administration Medical Decision Making Differential Diagnosis Differential Diagnoses: The differential diagnosis associated with the presentation includes (Normal , threatened , ectopic , severe anemia, electrolyte abnormality.) Admission/Observation Consideration of admission/observation: Escalation of care including admission/observation considered Lab Data MDM Lab Attestation statement: I reviewed the patient's lab results. 10/28/23 03:27 10/28/23 03:27 Labs: Lab Results 10/28/23 10/28/23 Range/Units 03:27 06:12 WBC 9.2 (4.8-10.8) X10*3/uL RBC 3.81 L (4.20-5.50) X10*6/uL Hgb 11.7 L (12.0-16.0) g/dl Hct 33.2 L (37.0-47.0) % MCV 87.1 (80.0-98.0) fL MCH 30.7 (27.0-33.0) pg MCHC 35.2 H (31.0-35.0) g/dl RDW 12.6 (11.0-16.0) % Plt Count 223 (160-400) X10*3/uL MPV 9.4 (9.4-12.3) fL Immature Gran % (Auto) 0.5 H (0.0-0.4) % Neut % (Auto) 68.9 (45-73) % Lymph % (Auto) 21.9 (20-40) % [place] % (Auto) 5.3 (2-11) % Eos % (Auto) 3.0 (0-4) % Baso % (Auto) 0.4 (0-2) % Lymph # (Auto) 2.0 (1.2-4.9) X10*3/uL [place] # (Auto) 0.5 (0.1-1.2) X10*3/uL Eos # (Auto) 0.3 (0.0-0.4) X10*3/uL Baso # (Auto) 0.0 (0.0-0.2) X10*3/uL Abs Immat Gran (auto) 0.05 H (0.00-0.03) X10*3/uL Absolute Neuts (auto) 6.3 (2.0-8.3) x10*3/uL Absolute Nucleated RBC 0.000 (0.0-0.012) X10*3/uL Nucleated RBC % (auto) 0.0 (0.0-0.2) /100WBC Sodium 138 (135-145) mmol/L Potassium 3.5 (3.3-5.1) mmol/L Chloride 107 (96-108) mmol/L Carbon Dioxide 23 (22-29) mmol/L Anion Gap 12 (12-20) BUN 10 (9-16) mg/dL Creatinine 0.62 (0.5-1.4) mg/dL Estim Creat Clear Calc 96.7 Estimated GFR > 60 Random Glucose 109 (60-115) mg/dL Calcium 8.8 (8.4-10.2) mg/dL Beta HCG, Quant 91571 mIU/mL Urine Color Yellow Urine Appearance Clear Urine pH 6.5 (5.0-9.0) Ur Specific [place] >= 1.030 H (1.005-1.025) Urine Protein Negative (Neg-Trace) mg/dL Urine Glucose (UA) Negative (Negative) mg/dL Urine Ketones 40 (Negative) mg/dL Urine Blood Negative (Negative) Urine Nitrite Negative (Negative) Ur Leukocyte Esterase Trace H (Negative) Urine RBC 0-2 (0-2) /HPF Urine WBC 6-10 H (0-5) /HPF Ur Squamous Epith Cells 3-5 (0-2) /HPF Urine Bacteria None Seen (None Seen) Hyaline Casts 0-2 (0-2) /LPF Independent Interpretation I performed an independent interpretation of an: Ultrasound (Single IOP with no pole, possible cystic lesion on the left ovary with normal right ovary. Await for radiology official read) Discharge Plan Discharge Clinical Impression: Abdominal pain in , UTI (urinary tract infection) during Patient Disposition: Still a Patient Instructions: Abdominal Pain in (ED), Urinary Tract Infection in (ED) Prescriptions: New nitrofurantoin monohyd/m-cryst [Macrobid] 100 mg capsule 100 mg PO BID Qty: 14 0RF Rx Instructions: must administer with a meal/food Referrals: Ramírez Bella MD [Physician] -
[2023-10-28 03:32] LABS: Basophils Percent Auto 0.4 % (0-2); Eosinophils Absolute Auto 0.3 X10*3/uL (0.0-0.4); Hematocrit 33.2 % (37.0-47.0); Hemoglobin 11.7 g/dl (12.0-16.0); Imm Gran Abs Auto 0.05 X10*3/uL (0.00-0.03); Imm Gran Pct Auto 0.5 % (0.0-0.4); Lymphocytes Percent Auto 21.9 % (20-40); MANUAL DIFF FLAG NO; Mean Corpuscular HGB Conc 35.2 g/dl (31.0-35.0); Mean Corpuscular Hemoglobin 30.7 pg (27.0-33.0); Mean Corpuscular Volume 87.1 fL (80.0-98.0); Mean Platelet Volume 9.4 fL (9.4-12.3); Monocytes Absolute Auto 0.5 X10*3/uL (0.1-1.2); Monocytes Percent Auto 5.3 % (2-11); Neutrophils Absolute Auto 6.3 x10*3/uL (2.0-8.3); Neutrophils Percent Auto 68.9 % (45-73); Platelet Count 223 X10*3/uL (160-400); Red Blood Count 3.81 X10*6/uL (4.20-5.50); Red Cell Distribution Width 12.6 % (11.0-16.0); White Blood Count 9.2 X10*3/uL (4.8-10.8)
[2023-10-28] MEDS: Acetaminophen 325 MG TABLET 650 MG PO (03:32)
[2023-10-28 03:52] LABS: Anion Gap 12 (12-20); Blood Urea Nitrogen 10 mg/dL (9-16); Calcium 8.8 mg/dL (8.4-10.2); Carbon Dioxide 23 mmol/L (22-29); Chloride 107 mmol/L (96-108); Creatinine Clr Calc Pharmacy 96.7; Estimated Glomerular Filt Rate > 60; Glucose Random 109 mg/dL (60-115); Potassium 3.5 mmol/L (3.3-5.1); Sodium 138 mmol/L (135-145)
[2023-10-28 03:54] LABS: HCG Quantitative 11190 mIU/mL
[2023-10-28 06:10] VITALS: BP 96/47; PULSE 84; TEMP 37.1; O2SAT 99
[2023-10-28 06:19] LABS: Appearance Urine Clear; Color Urine Yellow; Glucose Urine UA Negative (Negative); Leukocyte Esterase Urine Trace (Negative); Nitrite Urine Negative (Negative); PH 6.5 (5.0-9.0); Specific Gravity - Urine >= 1.030 (1.005-1.025); UMIC TRIGGER UACC YES; Urine Blood Negative (Negative); Urine Ketones 40 mg/dL (Negative); Urine Protein Negative (Neg-Trace)
[2023-10-28 06:43] LABS: Bacteria Urine None Seen (None Seen); Hyaline Casts Urine 0-2 /LPF (0-2); RBC Urine 0-2 /HPF (0-2); UACC Culture Trigger YES
[2023-10-28] MEDS: Nitrofurantoin Monohyd/M-Cryst 100 MG CAPSULE PO (07:02)
--- NOTE | 2023-10-28 07:05 | PC.NURSE ---
Alert and oriented, medicated per mar, denies pain or discomfort
--- NOTE | 2023-10-28 09:19 | ED_ITS ---
HPI - General Adult General Chief complaint: General Medical Stated complaint: abd pain, discharge Time Seen by Provider: 10/28/23 02:10 Source: patient and family (Significant other) Mode of arrival: ambulatory Limitations: no limitations Related Data Previous Rx's Medication Instructions Recorded nitrofurantoin 100 mg PO BID #14 caps 10/28/23 monohydrate/macrocrystals 100 mg capsule (Macrobid) Allergies Allergy/AdvReac Type Severity Reaction Status Date / Time No Known Allergies Allergy Verified 10/25/23 08:23 [facility] Past Medical History Medical History Helicobacter pylori (H. 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 [employer] Sexual orientation: Straight/Heterosexual Gender identity: Female Physical Exam ED Vital Signs: Vital Signs - 24 hr 10/28/23 01:32 10/28/23 01:56 10/28/23 06:10 Temperature 98.3 F 98.5 F 98.7 F Pulse Rate 100 89 84 Respiratory Rate 18 16 Blood Pressure 114/55 L 115/67 96/47 L Pulse Oximetry 98 97 99 Oxygen Delivery Method Room Air Room Air Room Air BMI result Body Mass Index 23.1 Medications Administered Discontinued Medications Generic Name Dose Route Start Last Admin Trade Name Freq PRN Reason Stop Dose Admin Acetaminophen 650 mg 10/28/23 02:46 10/28/23 03:32 Acetaminophen 325 Mg Tablet PO 10/28/23 02:47 650 mg ONCE ONE Administration Nitrofurantoin Macrocrystals 100 mg 10/28/23 06:56 10/28/23 07:02 Nitrofurantoin Monohyd/M-Cryst 100 Mg Capsule PO 10/28/23 06:57 100 mg ONCE ONE Administration Medical Decision Making Medical Decision Making MDM Narrative: Patient's ultrasound shows an intrauterine . Will discharge patient home. No evidence for ectopic. In stable condition. Patient's quant increasing. Will have patient follow-up with Dr. Shayne sears on an outpatient basis. Lab Data 10/28/23 03:27 10/28/23 03:27 Labs: Lab Results 10/28/23 10/28/23 Range/Units 03:27 06:12 WBC 9.2 (4.8-10.8) X10*3/uL RBC 3.81 L (4.20-5.50) X10*6/uL Hgb 11.7 L (12.0-16.0) g/dl Hct 33.2 L (37.0-47.0) % MCV 87.1 (80.0-98.0) fL MCH 30.7 (27.0-33.0) pg MCHC 35.2 H (31.0-35.0) g/dl RDW 12.6 (11.0-16.0) % Plt Count 223 (160-400) X10*3/uL MPV 9.4 (9.4-12.3) fL Immature Gran % (Auto) 0.5 H (0.0-0.4) % Neut % (Auto) 68.9 (45-73) % Lymph % (Auto) 21.9 (20-40) % [place] % (Auto) 5.3 (2-11) % Eos % (Auto) 3.0 (0-4) % Baso % (Auto) 0.4 (0-2) % Lymph # (Auto) 2.0 (1.2-4.9) X10*3/uL [place] # (Auto) 0.5 (0.1-1.2) X10*3/uL Eos # (Auto) 0.3 (0.0-0.4) X10*3/uL Baso # (Auto) 0.0 (0.0-0.2) X10*3/uL Abs Immat Gran (auto) 0.05 H (0.00-0.03) X10*3/uL Absolute Neuts (auto) 6.3 (2.0-8.3) x10*3/uL Absolute Nucleated RBC 0.000 (0.0-0.012) X10*3/uL Nucleated RBC % (auto) 0.0 (0.0-0.2) /100WBC Sodium 138 (135-145) mmol/L Potassium 3.5 (3.3-5.1) mmol/L Chloride 107 (96-108) mmol/L Carbon Dioxide 23 (22-29) mmol/L Anion Gap 12 (12-20) BUN 10 (9-16) mg/dL Creatinine 0.62 (0.5-1.4) mg/dL Estim Creat Clear Calc 96.7 Estimated GFR > 60 Random Glucose 109 (60-115) mg/dL Calcium 8.8 (8.4-10.2) mg/dL Beta HCG, Quant 45949 mIU/mL Urine Color Yellow Urine Appearance Clear Urine pH 6.5 (5.0-9.0) Ur Specific [place] >= 1.030 H (1.005-1.025) Urine Protein Negative (Neg-Trace) mg/dL Urine Glucose (UA) Negative (Negative) mg/dL Urine Ketones 40 (Negative) mg/dL Urine Blood Negative (Negative) Urine Nitrite Negative (Negative) Ur Leukocyte Esterase Trace H (Negative) Urine RBC 0-2 (0-2) /HPF Urine WBC 6-10 H (0-5) /HPF Ur Squamous Epith Cells 3-5 (0-2) /HPF Urine Bacteria None Seen (None Seen) Hyaline Casts 0-2 (0-2) /LPF Discharge Plan Discharge Clinical Impression: Abdominal pain in , UTI (urinary tract infection) during Patient Disposition: Still a Patient Instructions: Abdominal Pain in (ED), Urinary Tract Infection in (ED) Prescriptions: New nitrofurantoin monohyd/m-cryst [Macrobid] 100 mg capsule 100 mg PO BID Qty: 14 0RF Rx Instructions: must administer with a meal/food Referrals: Ramírez Bella MD [Physician] -
== END 2023-10-28 09:49 | disposition still patient (30) ==
PROVIDERS: Emergency Medicine; Emergency Provider Emergency Medicine Emergency Medical Services
DX: O23.41 Unspecified infection of urinary tract in pregnancy, first trimester (principal); N39.0 Urinary tract infection, site not specified; Z3A.01 Less than 8 weeks gestation of pregnancy; Z79.899 Other long term (current) drug therapy
CPT/HCPCS: 36415; 76801; 76817; 80048; 81001; 84702; 85025; 87086; 99284

== ENCOUNTER 2023-11-08 11:20 | Outpatient (AMB) | payer OTHER, SELFPAY ==
--- NOTE | 2023-11-08 11:43 | A.OFFVIS_ITS ---
Intake Vital Signs 11/08/23 11:45 Height 4 ft 10 in Weight 110 lb 3.698 oz BMI 23.0 BP 100/60 Intake Visit Reasons: US followup per Remedial Project Manager Required: No Information Interpreted: non-clinical & clinical Accompanied by: Significant Other Allergies No Known Allergies Allergy (Verified 11/08/23 11:45) HPI HPI Comments History of Present Illness Details Presenting for follow-up ultrasound done on 10/28/2023. The patient is doing well with no complaints complaining of mild pelvic cramping with no vaginal bleeding or any other concerns. On vitamin 1 tablet p.o. q.d. Pelvic ultrasound showed the following: IMPRESSION: 1. Single intrauterine gestation with ul trasound gestational age of 5 weeks, 6 days +/- 4 days. 2. Estimated date of delivery is 024 +/- 4 days. 3. Left adnexal cyst and small pelvic as cites. 4. Deformity of gestational sac suggesti ve for endplate the second gestational sac versus small subchorionic bleed [facility] Medical History Helicobacter pylori (H. 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[email or web address] Sexual orientation: Straight/Heterosexual Gender identity: Female Review of Systems Const All systems reviewed & are unremarkable except as noted in HPI and below Reports as per HPI and Reports no additional complaints GI Reports no additional complaints Reports no additional complaints Assessment & Plan Assessment & Plan (1) Cramping affecting , antepartum: Code(s): O26.899 - Other specified related conditions, unspecified trimester; R10.9 - Unspecified abdominal pain Plan: iscussed with the patient the finding on ultrasound showing gestational sac deformity with possible 2nd gestational sac or subchorionic hemorrhage, given the patient's pelvic cramping will order pelvic ultrasound. SAB warnings given to patient, she is to call or go to emergency room in case of persistent or worsening of her pelvic pain and/or vaginal bleeding. vitamin 1 tablet p.o. q.d. instructions given the patient to schedule an ultrasound follow-up appointment Orders: Orders US OB <= 14 weeks fetus Today O26.899 - Other specified related conditions, unspecified trimester, R10.9 - Unspecified abdominal pain Coding Level of Care Code Est Pt Level 3 (65237) Diagnoses Cramping affecting , antepartum O26.899; R10.9
[2023-11-08 11:45] VITALS: BP 100/60; BMI 23.0
== END 2023-11-08 12:03 | disposition home or self-care (01) ==
LOC: HO.HWS 11:21
PROVIDERS: Visit Provider Obstetrics & Gynecology
DX: O26.899 Other specified pregnancy related conditions, unspecified trimester (principal); R10.9 Unspecified abdominal pain
CPT/HCPCS: 99213

== ENCOUNTER 2023-11-08 11:59 | Outpatient (REF) | payer OTHER, SELFPAY ==
--- NOTE | ~2023-11-08 | US_ITS ---
EXAMINATION: US OBSTETRICAL ULTRASOUND CLINICAL INFORMATION: ; for size and dates. COMPARISON: Obstetrical ultrasound dated 11-19. LMP: Uncertain. Gestational age by maternal dates is uncertain. Estimated date of delivery by maternal dates is uncertain. TECHNIQUE: Ultrasound of the maternal pelvis is performed using transabdominal transducer. M-mode Doppler is also performed. FINDINGS: There is a single intrauterine gestational sac with visible yolk sac, embryo/fetus, and cardiac activity. There is no significant subchorionic hemorrhage or hematoma. HR: 130 beats per minute. CRL (crown rump length): 0.77 cm (6 weeks and 5 days +/- 4 days). CAMELIA (estimated date of delivery): 06/28/2024 +/- 4 days. MATERNAL ADNEXA: The right maternal ovary measures 3.0 x 1.5 x 2.1 cm. The left maternal ovary measures 4.7 x 3.7 x 3.4 cm. The left ovary contains a 3.4 cm benign, simple physiologic cyst. There is no significant maternal adnexal mass. No maternal pelvic ascites. US/US OB <= 14 weeks fetus IMPRESSION: 1. Single intrauterine gestation with ultrasound gestational age of 6 weeks and 5 days +/- 4 days. 2. Estimated date of delivery is 06/28/2024 +/- 4 days. 3. No maternal adnexal mass or pelvic ascites.
== END 2023-11-08 12:00 | disposition home or self-care (01) ==
LOC: HO.US 11:59
PROVIDERS: Visit Provider Obstetrics & Gynecology
DX: O26.891 Other specified pregnancy related conditions, first trimester (principal); R10.9 Unspecified abdominal pain; Z3A.01 Less than 8 weeks gestation of pregnancy
CPT/HCPCS: 76801; 99212

== ENCOUNTER 2023-11-17 08:47 | Outpatient (AMB) | payer OTHER, SELFPAY ==
[2023-11-17 08:56] VITALS: BP 100/52; BMI 23.0
--- NOTE | 2023-11-17 08:56 | A.OFFVIS_ITS ---
Intake Vital Signs 11/17/23 08:56 Height 4 ft 10 in Weight 110 lb BMI 23.0 BP 100/52 L Intake Visit Reasons: Ultra sound follow up/per Dr. fontanez Water Filtration Technician Required: No Allergies No Known Allergies Allergy (Verified 11/17/23 08:56) Post menopausal: No Patient : Yes HPI HPI Comments History of Present Illness Details Presenting for follow-up OB ultrasound with no complaints, no pelvic cramping and or bleeding. On vitamin 1 tablet p.o. q.d. Blood type AB- positive. Ob Ultrasound done on 11/08 showed the following: There is a single intrauterine gestational sac with visible yolk sac, embryo/fetus, and cardiac activity. There is no significant subchorionic hemorrhage or hematoma. HR: 130 beats per minute. CRL (crown rump length): 0.77 cm (6 weeks and 5 days +/- 4 days). CAMELIA (estimated date of delivery): 06/28/2024 +/- 4 days. MATERNAL ADNEXA: The right maternal ovary measures 3.0 x 1.5 x 2.1 cm. The left maternal ovary measures 4.7 x 3.7 x 3.4 cm. The left ovary contains a 3.4 cm benign, simple physiologic cyst. There is no significant maternal adnexal mass. No maternal pelvic ascites. [facility], [facility] Medical History Helicobacter pylori (H. 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 [employer] Sexual orientation: Straight/Heterosexual Gender identity: Female Female Reproductive History Menstrual control method: none Review of Systems Const All systems reviewed & are unremarkable except as noted in HPI and below Reports as per HPI and Reports no additional complaints GI Reports no additional complaints Reports no additional complaints Physical Exam Vital Signs: Last Vital Signs BP 100/52 L 11/17/23 08:56 BMI result Body Mass Index 23.0 Assessment & Plan Assessment & Plan (1) Early stage of : Code(s): Z34.90 - Encounter for supervision of normal , unspecified, unspecified trimester Plan: Discussed with the patient the results the ultrasound. SAB warnings given to patient, she is to call or go to emergency room in case of pelvic cramping and /or bleeding. vitamin 1 tablet p.o. q.d.. Instructions the patient to schedule 1 week initial RN OB intake appointment Coding Level of Care Code Est Pt Level 3 (04171) Diagnoses Early stage of Z34.90
== END 2023-11-17 09:11 | disposition home or self-care (01) ==
LOC: HO.HWS 08:47
PROVIDERS: Visit Provider Obstetrics & Gynecology
DX: Z34.90 Encounter for supervision of normal pregnancy, unspecified, unspecified trimester (principal)
CPT/HCPCS: 99213

== ENCOUNTER → 2023-11-17 08:47 | Outpatient (BNVA) | payer OTHER, SELFPAY | PROVIDERS: Visit Provider Obstetrics & Gynecology | DX: Z34.90 Encounter for supervision of normal pregnancy, unspecified, unspecified trimester (principal) | CPT/HCPCS: 99212 ==

== ENCOUNTER 2023-11-23 09:59 | Outpatient (REF) | payer OTHER, SELFPAY | END 2023-11-23 10:00 | disposition home or self-care (01) | LOC: HO.LAB 09:59 | PROVIDERS: Visit Provider Obstetrics & Gynecology | DX: Z13.89 Encounter for screening for other disorder (principal) ==

== ENCOUNTER 2023-12-05 15:30 | Outpatient (REF) | payer OTHER, SELFPAY ==
[2023-12-05 16:01] LABS: Hematocrit 35.8 % (37.0-47.0); Hemoglobin 12.9 g/dl (12.0-16.0); Mean Corpuscular Hemoglobin 31.3 pg (27.0-33.0); Mean Corpuscular Volume 86.9 fL (80.0-98.0); Mean Platelet Volume 9.8 fL (9.4-12.3); Platelet Count 215 X10*3/uL (160-400); Red Blood Count 4.12 X10*6/uL (4.20-5.50); Red Cell Distribution Width 12.3 % (11.0-16.0); White Blood Count 7.7 X10*3/uL (4.8-10.8)
[2023-12-05 18:01] LABS: Amphetamine Screen Urine Not Detected (Not Detect); Barbiturates, Urine Not Detected (Not Detect); Benzodiazepines Screen Urine Not Detected (Not Detect); Cannabinoid Screen Urine Not Detected (Not Detect); Cocaine Screen Urine Not Detected (Not Detect); Fentanyl, urine Not Detected (Not Detect); Opiate Screen Urine Not Detected (Not Detect); Phencyclidine Screen Urine Not Detected (Not Detect)
[2023-12-06 05:04] LABS: Syphilis Screen Nonreactive (Nonreactive)
[2023-12-06 05:35] LABS: HBsAGNum1 3.81 S/CO (0.00-0.99); HIV Num 1 4.16 S/CO (0.00-0.99); ~HepC Num1 0.11 S/CO (0.00-0.79); ~Hepatitis C Antibody Nonreactive (Nonreactive)
[2023-12-06 06:22] LABS: HBsAGNum2 Nonreactive; HBsAGNum3 Nonreactive; HIV AB/AG Nonreactive (Nonreactive); HIV Num 2 0.05 S/CO; HIV Num 3 0.06 S/CO; Hepatitis B Surface Antigen NEGATIVE (Negative)
[2023-12-07 05:18] LABS: Rubella IgG Antibody 3.45 Index
[2023-12-16 09:39] LABS: CF Ethnicity NG; Cystic Fibrosis NEGATIVE (NEGATIVE)
== END 2023-12-05 15:31 | disposition home or self-care (01) ==
LOC: HO.LAB 15:30
PROVIDERS: Visit Provider Obstetrics & Gynecology
DX: Z32.01 Encounter for pregnancy test, result positive (principal)
CPT/HCPCS: 80307; 81220; 85027; 86762; 86780; 86787; 86803; 86850; 86900; 87086; 87340; 87389

== ENCOUNTER 2023-12-06 14:00 | Outpatient (AMB) | payer OTHER, SELFPAY ==
[2023-12-06 14:22] VITALS: BP 102/54; BMI 23.4
--- NOTE | 2023-12-06 14:22 | MHC.OFFVIS ---
Intake Vital Signs 12/06/23 14:22 Height 4 ft 10 in Weight 112 lb BMI 23.4 BP 102/54 L Intake Visit Reasons: OB PE Intake Note: Possible UTI Janitorial Account Manager Required: No Information Interpreted: non-clinical & clinical Road Production General Manager: Road Production General Manager Present (Christian) Allergies No Known Allergies Allergy (Verified 12/06/23 14:24) Medication List - Last Reconciled 12/06/23 by Yanci Josue CNM [id number] 3-fat com #1 27-1-300 mg caps PO Is last menstrual period known: No Post menopausal: No Patient : Yes PFSH Medical History Helicobacter pylori (H. 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 [email or web address] Sexual orientation: Straight/Heterosexual Gender identity: Female Female Reproductive History Menstrual Age of Menarche: 10 Duration of menses: other control method: none Total pregnancies: 2 Ab spontaneous: 1 Questionnaire [place] Depression [place] Depression Scale I have been able to laugh and see the funny side of things: As much as I always could I have looked forward with enjoyment to things: As much as I ever did I have blamed myself unnecessarily when things went wrong: Not very often I have been anxious or worried for no reason: Yes, very often I have felt scared of panicky for no very good reason at all: Yes, quite a lot Things have been getting on top of me: Yes, most of the time I haven't been able to cope at all I have been so unhappy that I have had difficulty sleeping: Not very often I have felt sad or miserable: Not very often I have been so unhappy that I have been crying: Yes, quite often The thought of harming myself has occurred to me: Never 14 PHQ Assessment Billing PHQ Assessment Tool: PHQ Assessment [id number] Physical Exam Vital Signs: Last Vital Signs BP 102/54 L 12/06/23 14:22 BMI result Body Mass Index 23.4 Coding
--- NOTE | 2023-12-06 15:00 | A.OFFVISPN_ITS ---
Intake Vital Signs 12/06/23 14:22 Height 4 ft 10 in Weight 112 lb BMI 23.4 BP 102/54 L Intake Visit Reasons: OB PE Intake Note: possible uti Dobie Man Required: No Information Interpreted: non-clinical & clinical Turner Machine Operator: Turner Machine Operator Present (Christian) Allergies No Known Allergies Allergy (Verified 12/06/23 14:24) Medication List - Last Reconciled 12/06/23 by Yanci Josue CNM RXL-vccz-XZ-omega 3-fat com #1 27-1-300 mg caps PO Is last menstrual period known: No Post menopausal: No Patient : Yes PFSH Medical History (Updated 12/06/23 @ 16:18 by Yanci Josue CNM) First trimester Helicobacter pylori (H. 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 Date GA/Weeks Outcome Route Wt Inf Gender Labor Shelbi Anesthesia Location Provider Complicate 11/06/18 7 spontaneous Questionnaire History History : 2 Enterprise Depression Enterprise Depression Scale I have been able to laugh and see the funny side of things: As much as I always could I have looked forward with enjoyment to things: As much as I ever did I have blamed myself unnecessarily when things went wrong: Not very often I have been anxious or worried for no reason: Yes, very often I have felt scared of panicky for no very good reason at all: Yes, quite a lot Things have been getting on top of me: Yes, most of the time I haven't been able to cope at all I have been so unhappy that I have had difficulty sleeping: Not very often I have felt sad or miserable: Not very often I have been so unhappy that I have been crying: Yes, quite often The thought of harming myself has occurred to me: Never 14 PHQ Assessment Billing PHQ Assessment Tool: PHQ Assessment 29035 Visit CAMELIA Calculator Estimated Delivery Date Method Current WG Current Estimate 06/28/24 Ultrasound #1 10w 5d Expected Delivery Route/Plan vaginal delivery OB Problem List: 27 yr. old ? ? G 2?P0 ? ? ?LMP: EDC: 06/28/24 ?by ?u/s ? ?Blood type: ab pos Problem List: 1. Anxiety EPDS equals 14. Offered and declined counseling. She speaks with her mother who is her main support. Testing: Panorama/and or First Tri screen: counseled/ordered---? ?risk NT scan: scheduled AFP: FAS: Glucose: early ? 28 wk glucose: ? All labs still pending.. CBC 1st Tri: ? 28 wk. CBC: GBS: Vaccinations: Flu: Covid: Tdap: Education/Services WIC: CBE: Breast feeding classes: Social Supports/Stressors: Living situation: Supports: Work/school: Transportation: Labor, and Concerns: Labor support: Plan: Infant Feeding Plans:? nipples mario well initial teaching initiated. control: Specific Issues/Plans HX H.Pylori, Hx SABx1, Strong paternal Fam HX of DS. OB Visit Log Initial Weight: Not Recorded Date -?-?-?-?-?-?-?-?-?-?-?-?- EGA Weight Gest Week Fundal Ht Present FHR move Efface % Edema BP PrePreg We Weight GTT -?-?-?-?-?-?-?-?-?-?-?-?- Glucose LV Protein Blood Type 11/23/23 -?-?-?-?-?-?-?-?-?-?-?-?- 8w 6d 117 lb 2 oz 117 lb 2 oz -?-?-?-?-?-?-?-?-?-?-?-?- 12/06/23 -?-?-?-?-?-?-?-?-?-?-?-?- 10w 5d 112 lb 10 160 102/54 112 lb -?-?-?-?-?-?-?-?-?-?-?-?- Notes Visit Date: 12/06/23 Last Updated by: Yanci Josue CNM Patient is here for her 1st OB PE visit at 10 weeks and 6 days. She had 2 ultrasounds the 2nd of which gave an CAMELIA of 06/28/2024. Please see previous is is with Dr. Bella for early evaluations. She thinks she has a UTI she submitted a UA C&S today but it develops that she also submitted 1 yesterday. She says she gets them frequently and she takes the [id number] treatments. This is her 2nd 1st in 2019 was a miscarriage. She feels she is eating well. She has a history of Helicobacter and it was making her food all taste terrible and she had a whole lot of tests and treatment with antibiotics for a long time last year and feels she is 80% better Patient has her nuchal translucency ultrasound set up for on the .. Discussed the options for genetic screening in 1st trimester and the difference between screening tests and diagnostic tests but that amniocentesis is not usually recommended unless at 1 of the other initial testing is abnormal. Request sent to RN to fill out paperwork for the panorasc NIPT testing. Patient's cervix was pink nulliparous and it did bleed very easily with touch with the Pap smear discussed that this can happen very easily and commonly in early . There was no bleeding from the os itself cervix and uterus consistent with 10 weeks 6 days' gestation uterus deep in pelvis. FHT was very clearly audible at 160. Patient scored 14 on the EPDS screening tool. She says that sometimes she does wake up worrying about things but she talks to her mother and she has not interested in speaking to a therapist because talking to her mother is liked speaking to a therapist and she is very close to her mom and that helps. Reviewed other options for care although patient has also ready initiated care here.. We will see her in 4 weeks she got her blood work done yesterday and what is available is normal to this point. Visit Date: 11/23/23 Last Updated by: Aletha Verduzco LPN Sonal is here today with her life partner. They are both happy about the . LMP unknown. CAMELIA by u/s on 11/08/23 =CAMELIA of 06/28/24. Pt is currently on a leave from her job. She reports feeling well and eating and drinking ok. Pt does admit to eating out most days and at fast food restaurants. She also admits to using added salt on everything. Pt was advised to try cooking healthy meals at home and to avoid the salt shaker as much as possible. She was advised to try fruits, veggies, frozen vs canned, and to stop drinking soda everyday. Advised to increase her H2O to 7-10 glasses daily. Pt reports a strong FH on her fathers side of children born with DS. Discussed Panorama testing after 10 wks gestation. Pt denies any FH of diabetes. Discussed delivery and u/s will be at [facility]. Discussed NT u/s to be scheduled, and we will notify her of date and time. Pt was informed how to reach MD after hours for emergency and to go to [facility] at [facility] and not [facility] ED. Discussed with and given the packet. pt is scheduled for OB PE on 12/06/23 on [facility]. Results AMB Urinalysis, Automated UA Leukoctes 0.5 Kar/uL Last Edit by LEE Chung on 12/06/23 15:05 UA Nitrite Negative Last Edit by LEE Chung on 12/06/23 15:05 UA Urobilinogen 0 mg/dL Last Edit by LEE Chung on 12/06/23 15:05 UA Protein 30 mg/dL Last Edit by LEE Chung on 12/06/23 15:05 UA pH 6.5 Last Edit by LEE Chung on 12/06/23 15:05 UA Blood 0.5 Damien/uL Last Edit by LEE Chung on 12/06/23 15:05 UA Specific [place] 1.030 Last Edit by LEE Chung on 12/06/23 15: 05 UA Ketone Positive Last Edit by LEE Chung on 12/06/23 15:05 UA Bilirubin 0 mg/dL Last Edit by LEE Chung on 12/06/23 15:05 UA Glucose 0 mg/dL Last Edit by LEE Chung on 12/06/23 15:05 Exam Const Constitutional General: cooperative, healthy appearing, comfortable, no acute distress and well developed Nutritional Appearance: average body habitus and well nourished Constitutional Limitations: no limitations HENMT Head: normocephalic and other Teeth and gingiva: dentition normal and gingiva normal Neck Thyroid: Thyroid normal Chest Breast/axilla inspection: normal inspection of the breasts and Other (nipples mario well) Breast/axilla palpation: normal palpation of the breasts and normal palpation of the axillae Resp Effort & Inspection: normal respiratory effort Auscultation: clear to auscultation bilaterally Cardio Heart sounds: S1 normal heart sound present and S2 normal heart sound present GI Inspection (GI): normal to inspection General Exam: Yes no CVA tenderness External Female Exam: normal external appearance Speculum exam - vagina: normal appearance of the vagina, normal discharge and other (normal appearance to vaginal secretions) Speculum Exam - Cervix: normal appearance of the cervix Bimanual exam- vagina & uterus: normal bimanual exam, uterine size normal (consistant w dating), consistency normal (consitent w gestational age), uterine mobility normal and uterine shape normal (c/w gestational age) Bimanual Exam- Adnexa, other: normal adnexae, no masses and normal (teaching re kegels done) Pelvic Support: normal (teaching re kegels done) OB/external & speculum: external exam normal Manual OB Exam: other (cervix =long/thick/closed/ and consistent w obstetric history) Results Reviewed Results Reviewed: Laboratory Last Values Urine pH (Auto) 6.5 12/06/23 15:03 Specific [place] (Auto) 1.030 12/06/23 15:03 Urine Protein (Auto) 30 mg/dL 12/06/23 15:03 Glucose (UA)(Auto) 0 mg/dL 12/06/23 15:03 Urine Ketones (Auto) Positive 12/06/23 15:03 Urine Blood (Auto) 0.5 Damien/uL 12/06/23 15:03 Urine Nitrite (Auto) Negative 12/06/23 15:03 Urine Bilirubin (Auto) 0 mg/dL 12/06/23 15:03 Urine Urobilinogen (Auto) 0 mg/dL 12/06/23 15:03 Leukocyte Esterase (Auto) 0.5 Kar/uL 12/06/23 15:03 Coding Level of Care Code [place] Diagnoses Early stage of Z34.90 First trimester Z34.91 Urinary frequency R35.0 Helicobacter pylori (H. pylori) A04.8 Anxiety F41.9 Assessment & Plan Assessment & Plan (1) Early stage of : Code(s): Z34.90 - Encounter for supervision of normal , unspecified, unspecified trimester Category: Medical (2) First trimester : Code(s): Z34.91 - Encounter for supervision of normal , unspecified, first trimester Category: Medical (3) Urinary frequency: Code(s): R35.0 - Frequency of micturition Category: Medical (4) Helicobacter pylori (H. pylori): Comment: States was treated last year feeling 80% better. Code(s): A04.8 - Other specified bacterial intestinal infections Category: Medical (5) Anxiety: Comment: EPDS score equals 14. Offered referral to counseling patient declines she has support of her mother and partner. Code(s): F41.9 - Anxiety disorder, unspecified Category: Medical Orders: Orders Urine Culture Today R31.9 - Hematuria, unspecified AMB Urinalysis Automated Today Z13.9 - Encounter for screening, unspecified Bacterial Vaginosis Panel Today R35.0 - Frequency of micturition CT NG by PCR Today R35.0 - Frequency of micturition Pap Smear Today Z12.4 - Encounter for screening for malignant neoplasm of cervix
== END 2023-12-06 15:46 | disposition home or self-care (01) ==
LOC: HO.HWSM 14:00
PROVIDERS: Visit Provider Advanced Practice Midwife
DX: Z34.91 Encounter for supervision of normal pregnancy, unspecified, first trimester (principal); R35.0 Frequency of micturition; A04.8 Other specified bacterial intestinal infections; F41.9 Anxiety disorder, unspecified
CPT/HCPCS: 25942; 99213; S3005

== ENCOUNTER 2023-12-06 14:00 | Outpatient (REF) | payer OTHER, SELFPAY ==
[2023-12-07 06:08] LABS: CT PCR NOT DETECTED (Not Detect.); NG PCR NOT DETECTED (Not Detect.)
[2023-12-07 13:35] LABS: BV Int Neg Control Negative (Negative); BV Int Pos Control Positive (Positive)
== END 2023-12-06 14:01 | disposition home or self-care (01) ==
LOC: HO.LNP 14:00
PROVIDERS: Visit Provider Advanced Practice Midwife
DX: O26.891 Other specified pregnancy related conditions, first trimester (principal); R35.0 Frequency of micturition; R31.9 Hematuria, unspecified; Z3A.10 10 weeks gestation of pregnancy
CPT/HCPCS: 0353U; 87086; 87480; 87510; 87660; 88142; 99212

== ENCOUNTER 2024-01-12 22:24 | Emergency (ER) | payer OTHER, SELFPAY ==
[2024-01-12 22:29] VITALS: BP 98/55; PULSE 84; RESP 16; TEMP 37.1; O2SAT 98; BMI 23.0
[2024-01-12 23:13] LABS: UPreg QC Valid YES; Urine Pregnancy POSITIVE (NEGATIVE)
[2024-01-12 23:13] LABS: MANUAL DIFF FLAG NO
[2024-01-12 23:14] LABS: Basophils Percent Auto 0.4 % (0-2); Eosinophils Absolute Auto 0.3 X10*3/uL (0.0-0.4); Eosinophils Percent Auto 2.9 % (0-4); Hematocrit 34.2 % (37.0-47.0); Hemoglobin 11.9 g/dl (12.0-16.0); Imm Gran Abs Auto 0.05 X10*3/uL (0.00-0.03); Imm Gran Pct Auto 0.5 % (0.0-0.4); Lymphocytes Absolute Auto 1.9 X10*3/uL (1.2-4.9); Mean Corpuscular HGB Conc 34.8 g/dl (31.0-35.0); Mean Corpuscular Hemoglobin 30.8 pg (27.0-33.0); Mean Corpuscular Volume 88.6 fL (80.0-98.0); Mean Platelet Volume 9.8 fL (9.4-12.3); Monocytes Absolute Auto 0.5 X10*3/uL (0.1-1.2); Monocytes Percent Auto 5.1 % (2-11); Neutrophils Absolute Auto 6.7 x10*3/uL (2.0-8.3); Neutrophils Percent Auto 71.1 % (45-73); Platelet Count 229 X10*3/uL (160-400); Red Blood Count 3.86 X10*6/uL (4.20-5.50); Red Cell Distribution Width 12.7 % (11.0-16.0); White Blood Count 9.4 X10*3/uL (4.8-10.8)
[2024-01-12 23:14] LABS: Appearance Urine Clear; Color Urine Yellow; Glucose Urine UA Negative (Negative); Leukocyte Esterase Urine Trace (Negative); Nitrite Urine Negative (Negative); PH 5.5 (5.0-9.0); Specific Gravity - Urine 1.025 (1.005-1.025); UMIC TRIGGER UACC YES; Urine Blood Trace (Negative); Urine Ketones Negative (Negative); Urine Protein Negative (Neg-Trace)
[2024-01-12 23:19] LABS: Bacteria Urine 1+ (None Seen); Hyaline Casts Urine 0-2 /LPF (0-2); UACC Culture Trigger YES
[2024-01-12 23:37] LABS: Anion Gap 12 (12-20); Blood Urea Nitrogen 8 mg/dL (9-16); Calcium 9.4 mg/dL (8.4-10.2); Carbon Dioxide 22 mmol/L (22-29); Chloride 107 mmol/L (96-108); Estimated Glomerular Filt Rate > 60; Glucose Random 73 mg/dL (60-115); Potassium 3.6 mmol/L (3.3-5.1); Sodium 137 mmol/L (135-145)
[2024-01-13 04:50] LABS: Appearance Urine Clear; Color Urine Yellow; Glucose Urine UA Negative (Negative); Leukocyte Esterase Urine Trace (Negative); Nitrite Urine Negative (Negative); Specific Gravity - Urine >= 1.030 (1.005-1.025); UMIC TRIGGER UACC YES; Urine Blood Moderate (2+) (Negative); Urine Ketones Trace mg/dL (Negative); Urine Protein Trace mg/dL (Neg-Trace)
[2024-01-13 04:53] LABS: Bacteria Urine 1+ (None Seen); Hyaline Casts Urine 0-2 /LPF (0-2); RBC Urine >20 /HPF (0-2); UACC Culture Trigger YES
--- NOTE | 2024-01-13 05:41 | ED_ITS ---
HPI - General Adult General Chief complaint: Abdominal Pain Stated complaint: 4 months preg abd pain Time Seen by Provider: 01/13/24 04:25 Source: patient Mode of arrival: ambulatory Limitations: no limitations History of Present Illness HPI narrative: patient with multiple complaints including urinary frequency, back pain and cramping Onset (ago): day(s) Related Data Home Medications ?Medication ?Instructions ?Recorded ?Confirmed SZE-[id number]-omega 3-fat com #1 27 cap PO 12/06/23 12/06/23 mg-1 mg-300 mg capsule Previous Rx's ?Medication ?Instructions ?Recorded nitrofurantoin 100 mg PO Q12H 7 days #14 caps 01/13/24 monohydrate/macrocrystals 100 mg capsule (Macrobid) Allergies Allergy/AdvReac Type Severity Reaction Status Date / Time No Known Allergies Allergy Verified 01/12/24 22:32 Review of Systems 2 Review of Systems: Yes all other systems are reviewed and are negative Neurologic: Denies Sensory deficit (Neuro) [facility] Past Medical History Medical History First trimester Helicobacter pylori (H. 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 [employer] Sexual orientation: Straight/Heterosexual Gender identity: Female Physical Exam ED Vital Signs: Vital Signs - 24 hr 01/12/24 22:29 Temperature 98.7 F Pulse Rate 84 Respiratory Rate 16 Blood Pressure 98/55 L Pulse Oximetry 98 Oxygen Delivery Method Room Air BMI result Body Mass Index 23.0 Const General: healthy appearing Nutritional Appearance: average body habitus Orientation/consciousness: oriented to person and patient oriented x3 Limitations: no limitations HENMT Head: Yes normal to inspection Ears: external ears normal General nose exam: Normal external nose present Mouth: Normal oral and palatal mucosa present and oropharynx normal Throat: Yes posterior oropharynx normal Eyes General: appearance normal, both eyes and all related structures Neck Neck: Yes normal visual inspection Chest Chest palpation & inspection: normal inspection of the chest Resp Auscultation: clear to auscultation bilaterally Cardio Jugular venous distension: no JVD Rate: regular rate Rhythm: regular rhythm Heart sounds: S1 normal heart sound present and S2 normal heart sound present GI Other: gravid abdomen Palpation (GI): Soft to palpation, nontender and No hepatosplenomegaly present Auscultation: normal bowel sounds Back/Spine/Pelvis Other: point tenderness in lumbar spine and soft tissues, no erythema Skin General skin exam: no rashes or lesions noted Neuro General: oriented to person and patient oriented x3 Cranial nerves: Yes CN's II-XII intact bilaterally Motor exam (neuro): 5/5 motor strength present throughout Sensory Exam: No Sensory deficit (Neuro) Extrem General: Yes normal to inspection Psych Appearance: grossly normal Course Reevaluation(s) Reevaluation #1: Initially urine appeared contaminated but repeat UA seems infected so will start macrobid. Bedside US showed IUP with good FH Time: 05:50 Medications Administered Discontinued Medications Generic Name Dose Route Start Last Admin Trade Name Antioneq PRN Reason Stop Dose Admin Nitrofurantoin Macrocrystals 100 mg 01/13/24 05:52 01/13/24 06:03 Nitrofurantoin Monohyd/M-Cryst 100 Mg Capsule PO 01/13/24 05:53 100 mg ONCE ONE Administration Medical Decision Making Differential Diagnosis Differential Diagnoses: The differential diagnosis associated with the presentation includes (IUP, UTI, back pain were all considered) Admission/Observation Consideration of admission/observation: Escalation of care including admission/observation considered (upon arrival admission was considered) Lab Data 01/12/24 23:03 01/12/24 23:03 Labs: Lab Results 01/12/24 01/12/24 01/13/24 Range/Units 23:03 23:04 04:43 WBC 9.4 (4.8-10.8) X10*3/uL RBC 3.86 L (4.20-5.50) X10*6/uL Hgb 11.9 L (12.0-16.0) g/dl Hct 34.2 L (37.0-47.0) % MCV 88.6 (80.0-98.0) fL MCH 30.8 (27.0-33.0) pg MCHC 34.8 (31.0-35.0) g/dl RDW 12.7 (11.0-16.0) % Plt Count 229 (160-400) X10*3/uL MPV 9.8 (9.4-12.3) fL Immature Gran % (Auto) 0.5 H (0.0-0.4) % Neut % (Auto) 71.1 (45-73) % Lymph % (Auto) 20.0 (20-40) % [place] % (Auto) 5.1 (2-11) % Eos % (Auto) 2.9 (0-4) % Baso % (Auto) 0.4 (0-2) % Lymph # (Auto) 1.9 (1.2-4.9) X10*3/uL [place] # (Auto) 0.5 (0.1-1.2) X10*3/uL Eos # (Auto) 0.3 (0.0-0.4) X10*3/uL Baso # (Auto) 0.0 (0.0-0.2) X10*3/uL Abs Immat Gran (auto) 0.05 H (0.00-0.03) X10*3/uL Absolute Neuts (auto) 6.7 (2.0-8.3) x10*3/uL Absolute Nucleated RBC 0.000 (0.0-0.012) X10*3/uL Nucleated RBC % (auto) 0.0 (0.0-0.2) /100WBC Sodium 137 (135-145) mmol/L Potassium 3.6 (3.3-5.1) mmol/L Chloride 107 (96-108) mmol/L Carbon Dioxide 22 (22-29) mmol/L Anion Gap 12 (12-20) BUN 8 L (9-16) mg/dL Creatinine 0.56 (0.5-1.4) mg/dL Estim Creat Clear Calc 106.0 Estimated GFR > 60 Random Glucose 73 (60-115) mg/dL Calcium 9.4 D (8.4-10.2) mg/dL Beta HCG, Quant 15937 mIU/mL Urine Color Yellow Yellow Urine Appearance Clear Clear Urine pH 5.5 6.0 (5.0-9.0) Ur Specific [place] 1.025 >= 1.030 H (1.005-1.025) Urine Protein Negative Trace (Neg-Trace) mg/dL Urine Glucose (UA) Negative Negative (Negative) mg/dL Urine Ketones Negative Trace (Negative) mg/dL Urine Blood Trace H Moderate (2+) H (Negative) Urine Nitrite Negative Negative (Negative) Ur Leukocyte Esterase Trace H Trace H (Negative) Urine RBC 3-5 H >20 H (0-2) /HPF Urine WBC 6-10 H 11-20 H (0-5) /HPF Ur Squamous Epith Cells 6-10 3-5 (0-2) /HPF Urine Bacteria 1+ 1+ (None Seen) Hyaline Casts 0-2 0-2 (0-2) /LPF Urine Test POSITIVE H (NEGATIVE) Blood Type AB Positive Antibody Screen NEGATIVE Independent Interpretation Interpretation: BED side US shows IUP with FH Chronic Conditions Patient?s care impacted by: Other () Discharge Plan Discharge Clinical Impression: UTI (urinary tract infection), Patient Disposition: Home, Self-Care Instructions: Urinary Tract Infection in (ED) Prescriptions: New nitrofurantoin monohyd/m-cryst [Macrobid] 100 mg capsule 100 mg PO Q12H 7 Days Qty: 14 0RF Rx Instructions: must administer with a meal/food No Action [id number]-omega 3-fat com #1 27-1-300 mg capsule PO Referrals: Physician,Unknown J [Primary Care Provider] - 3 days Interventions: ED Discharge Assessment Last Done: 01/13/24 06:06 Discharge Date/Time: 01/13/24 06:08 Print Language: Luxembourgish
[2024-01-13 05:55] VITALS: BP 94/57; PULSE 87; RESP 17; TEMP 36.6; O2SAT 98
[2024-01-13] MEDS: Nitrofurantoin Monohyd/M-Cryst 100 MG CAPSULE PO (06:03)
[2024-01-13 06:06] VITALS: BP 94/57; PULSE 87; RESP 17; TEMP 36.6; O2SAT 98
== END 2024-01-13 06:08 | disposition home or self-care (01) ==
PROVIDERS: Emergency Provider Emergency Medicine
DX: O23.40 Unspecified infection of urinary tract in pregnancy, unspecified trimester (principal); N39.0 Urinary tract infection, site not specified; Z3A.00 Weeks of gestation of pregnancy not specified
CPT/HCPCS: 36415; 80048; 81001; 81025; 84702; 85025; 86850; 86900; 86901; 87086; 99283

== ENCOUNTER 2024-09-29 18:23 | Emergency (ER) | payer MEDICAID, SELFPAY ==
--- NOTE | ~2024-09-29 | XR_ITS ---
CLINICAL HISTORY: cp Chest Radiographs, 2 views Comparison: 02/06/19 Findings: No cardiomegaly. Normal mediastinal contours. No pneumothorax. Prominent nipple shadows on the PA view. No pleural effusion. Normal upper abdomen. No acute fracture. Impression: No acute findings. This document has been electronically signed by: Miya Nelson MD on 09/29/2024 18:59:05
--- NOTE | 2024-09-29 18:24 | ECG_ITS ---
Test Reason : CHEST PAIN/SOB Blood Pressure : / mmHG Vent. Rate : 075 BPM Atrial Rate : 075 BPM P-R Int : 126 ms QRS Dur : 068 ms QT Int : 396 ms P-R-T Axes : 051 024 012 degrees QTc Int : 442 ms Normal sinus rhythm Normal ECG No previous ECGs available Referred By: Generic ED Physician Electronically Signed By:AARON SLADE MD
--- OUTSIDE RECORDS SUMMARY | 2024-09-29 18:26 | XMS_ITS | Data Portability ---
Author Organization [facility], [id number] Address [address] [place] [address] Assessment No assessment recorded. Plan of Treatment Reminders Order Date Submit Date Provider Last Modified By Organization Details Last Modified Time Details Appointments None recorded. Lab None recorded. Referral dermatologi st referral 2022 023 [email or web address] Not available 10:06:17 Procedures None recorded. Surgeries None recorded. Imaging None recorded. Medication Orders doxycycline hyclate 100 mg capsule 2022 023 [facility] #[id number], [address] [place], [address], 3 09:57:56 Patient TargetsNo targets recorded. Patient InstructionsNo instructions recorded. Reason for Referral Registered Physical Therapist Referral for C ystic acne Referring Physician: Ale Taylor, Urgent Care, Encounter Date: 03/17/2023 Problems No Known Problems Procedures Surgical History Date Name Laterality Status Provider Name and Address Organization Details Recorded Time procedure on mandible completed Haley [facility] 03/17/2023 09:21:08 Imaging Results None recorded. Procedure Notes None recorded. Medical Equipment None Reported. Allergies No known drug allergies Medications Name Sig Start Date Stop Date Status Note LastModified by Organization Details LastModified Time tetracyclin e 500 mg capsule TAKE 2 CAPSULES BY MOUTH EVERY 12 HOURS 03/17 completed Not Available Not Available Not Available doxycycline hyclate 100 mg capsule Take 1 capsule twice a day by oral route for 30 days. 2022 active Not Available Not Available Not Avai lable Lidocaine Viscous 2 % mucosal solution APPLY 1 APPLICATI ON TO AFFECTED MUCOSAL AREA 2 TIMES A DAY NEEDED FOR PAIN 03/17 completed Not Available Not Available Not Available sucralfate 100 mg/mL oral suspension TAKE 10 ML BY MOUTH AT BEDTIME 03/17 completed Not Available Not Available Not Available metronidazo le 500 mg tablet TAKE 2 TABLETS BY MOUTH 2 TIMES A DAY 03/17 completed Not Available Not Available Not Available hydrocortis one 2.5 % topical cream with perineal applicator APPLY RECTALLY 2 TO 4 TIMES A DAY NEEDED FOR HEMORRHOI DS 03/17 completed Not Available Not Available Not Available famotidine 20 mg tablet TAKE 1 TABLET BY MOUTH EVERY NIGHT AT BEDTIME 03/17 completed Not Available Not Available Not Available docusate sodium 100 mg capsule TAKE 1 CAPSULE BY MOUTH EVERY DAY AT BEDTIME 03/17 completed Not Available Not Available Not Available omeprazole 20 mg capsule,del ayed release TAKE 1 CAPSULE BY MOUTH DAILY 03/17 completed Not Available Not Available Not Available ondansetron 4 mg disintegrat ing tablet DISSOLVE 1 TABLET BY MOUTH EVERY 8 HOURS NEEDED FOR NAUSEA AND VOMITING 03/17 completed Not Available Not Available Not Available Stomach Relief 262 mg chewable tablet CHEW 2 TABLETS BY MOUTH 4 TIMES A DAY 03/17 completed Not Available Not Available Not Available escitalopra m 5 mg tablet TAKE 1 TABLET BY MOUTH ONE TIME PER DAY FOR 14 DAYS 03/17 completed Not Available Not Available Not Available Gavilax 17 gram/dose oral powder TAKE 17 GRAMS BY MOUTH DAILY 03/17 completed Not Available Not Available Not Available Vitals Date Recorded Body height Body mass index (BMI) Body weight Oxygen saturation Oxygen saturation in Arterial blood by Pulse oximetry Heart rate Respiratory rate Body temperature Systolic blood pressure Diastolic blood pressure Provider Name and Address Organization Details Last Updated DateTime 3 147.32 cm 18.8 kg/m2 88884.3 1 g 100 % 100 % 69 /min 16 /min 98 [degF] 111 mm[Hg] 74 mm[Hg] Haley [facility] 3 09:22:56 Social History Question Answer Notes LastModified by Organizat ion Details LastModified Time Tobacco Smoking Status Never Smoker [facility] 03/17/2023 09:20:37 What Is Your Level Of Alcohol Consumption? Occasional Information not available 03/17/2023 How Many Times Per Week Do You Consume Alcohol? Less Than 1 Time Per Week Information not available 03/17/2023 Are You Currently Employed? Yes Information not available 03/17/2023 Have You Had Direct Contact, Or Contact During Intimacy, With Monkeypox Rash, Scabs, Or Body Fluids From A Person With Monkeypox? No Information not available 03/17/2023 Do You Use Any Illicit Or Recreational Drugs? No Information not available 03/17/2023 Have You Recently Traveled Abroad? No Information not available 03/17/2023 Do You Or Have You Ever Used Any Other Forms Of Tobacco Or Nicotine? No Information not available 03/17/2023 Sex: Unknown Functional Status None recorded. Mental Status None recorded. Family History Relationship Description Onset Age of this Age Resolved Age Notes LastModified by Organization Details LastModified Time Father No current problems or disability [email or web address] Not available 03/17 09:20:07 Mother No current problems or disability [email or web address] Not available 03/17 09:20:07 Medical History No medical history recorded. Gynecological History Statement/Question Response Date of LMP 02/14/2023 Is there any chance of ? No LMP Approximate Obstetrics History GPAL:G 0 P 0 0 0 0 Past Encounters Encounter ID Performer Location Encounter Start Date Encounter Closed Date Diagnosis/Indication Diagnosis SNOMED-CT Code Diagnosis ICD10 Code Diagnosis Note [id number] [address] [place] [address] 12/19/2020 18:46:40 12/19/2020 19:29:56 [id number] [address] [place] [address] 01/06/2021 14:21:33 01/06/2021 16:27:26 [id number] Ale Taylor MD [address] [place] [address] 03/17/2023 08:22:45 03/17/2023 10:00:07 Cystic acne 15283558 L70.0 Discussed a trial of Doxycyline and that if starts responding maybe should continue a longer course under the surveillan ce of a dermatolog ist. Discussed use of Trentinoic acid in addition, titrating does up. Derm referral given Photsensit ivity of Doxy discussed and patient is aware of the risks and benefirs of starting doxycyline Health Concerns Section Related Observation LastModified by Organization Detai ls LastModified Time None Recorded Concern Status LastModified by Organization Details LastModified Time None Recorded Advance Directives Directive None Recorded Payers Encounter Date Sequence Insurance Name Policy Number Policy Maharaj Covered Member ID Maharaj Member ID Guarantor Name 01/06/2021 1 [facility] [employer] [facility] TO[facility] WITH [facility] (MEDICAID HMO) [id number] Sonal Bloom Roddy [id number] Sonal Pereyra 03/17/2023 1 [facility] - [facility] (MEDICAID REPLACEMENT - HMO) [place]ILD[place]O Sonal Bloom Roddy [id number] Sonal Pereyra Notes Date Note Type Note Provider Name and Address Organization Details Recorded Time 03/17/2023 text/html UC Rash/Skin LesionReported bypatient.Location:[facility]; forehead; chest; back Quality:painful;red Severity:moderate Associated Symptoms:no fever; no fatigueNotes:philly sutton was on control pills which helped but has stopped for a few years and now skin has gotten bad. Has tretinoin and topical clindamycin at home from an online evaluation she did, but hasnt used it yet Ale Taylor MD [address] [place], [address], [place] - [facility] 03/19/2023 13:41:27 OBGyn Episode No OBEpisode recorded.
[2024-09-29 18:43] VITALS: BP 134/81; PULSE 75; RESP 16; TEMP 36.6; O2SAT 99; BMI 24.0
--- NOTE | 2024-09-29 18:43 | ED_ITS ---
HPI - Chest Pain General Chief Complaint: Chest Pain Stated Complaint: chest pain,sob Time Seen by Provider: 09/29/24 23:34 Source: patient, RN notes reviewed and old records reviewed Mode of arrival: ambulatory Limitations: no limitations History of Present Illness ED Provider: Allyn CARTER narrative: 28-year-old female presents for evaluation of chest tightness and weakness. Patient reports that she gets intermittent episodes of chest tightness with associated shortness of breath, tingling all over, sweaty palms. She states that these can last for a few minutes to hours but today the symptoms did not go away Denies any fevers, chills, cough. Denies any known cardiac history She states that her mother has similar symptoms at times The patient has no diagnosed history of anxiety but reports that she feels anxious during these episodes The patient is 3 months and reports that she has not yet had her 1st menstrual cycle since her Related Data Home Medications ?Medication ?Instructions ?Recorded ?Confirmed [id number] 3-fat com #1 27 cap PO 12/06/23 12/06/23 mg-1 mg-300 mg capsule Previous Rx's ?Medication ?Instructions ?Recorded nitrofurantoin 100 mg PO Q12H 7 days #14 caps 01/13/24 monohydrate/macrocrystals 100 mg capsule (Macrobid) Allergies Allergy/AdvReac Type Severity Reaction Status Date / Time No Known Allergies Allergy Verified 09/29/24 18:44 Review of Systems 2 Constitutional: Constitutional: Denies body ache(s), Denies chills, Reports fatigue, Denies fever(s) and Denies frequent falls Eyes: Eyes: Denies blurry vision ENT: Denies vertigo and Denies dizziness Cardiovascular: Cardiovascular: Reports chest pain and Reports dyspnea Respiratory: Respiratory: Denies cough and Reports dyspnea Gastrointestinal: Gastrointestinal: Denies abdominal pain, Denies nausea and Denies vomiting Musculoskeletal: Musculoskeletal: Denies back pain Neurologic: Denies vertigo, Denies dizziness and Denies frequent falls Psychiatric: Psychiatric: Reports anxiety and Denies suicidal ideation Endocrine: Endocrine: Reports fatigue PMFSH Past Medical History Medical History First trimester Helicobacter pylori (H. pylori) No known health problems Surgical History History of esophagogastroduodenoscopy (EGD) Hx of wisdom tooth extraction Family History Family History Mother HTN (hypertension) Social History Social History Household Members: Family Housing: Apartment Alcohol intake: current Alcohol intake frequency: holidays/special occasions only Patient Tobacco Use Status: Former Tobacco user Smoked in Last 30 Days: No Use of substances other than those prescribed or required for medical reasons: No Advance Directives: No Advance Directives Information Provided: No Do you have a plan to hurt others: No Plan Patient : No Current occupational status: employed 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 [employer] Sexual orientation: Straight/Heterosexual Gender identity: Female Physical Exam 2 Vital Signs: Vital Signs: Last Vital Signs Temp 98.1 F 09/30/24 00:12 Pulse 70 09/30/24 00:12 Resp 15 09/30/24 00:12 BP 116/79 09/30/24 00:12 Pulse Ox 97 09/30/24 00:12 O2 Del Method Room Air 09/30/24 00:12 BMI result Body Mass Index 24.0 Const: General: healthy appearing, comfortable, no acute distress, alert and awake Nutritional Appearance: well nourished Orientation/consciousness: p atient oriented x3 HEENT: Head: Yes normocephalic and Yes atraumatic Eyes: Eyelids: Yes eyelids normal Conjunctivae: conjunctivae normal S clerae: sclerae normal Corneas: corneas normal Pupils: Equal, round and reactive pupils present EOM: EOMs intact bilaterally Neck: Neck: Yes full ROM Resp: Effort & Inspection: normal respiratory effort, able to speak in complete sentences and not labored Cardio: Rate: regular rate Rhythm: regular rhythm GI: Inspection: No distended Palpation (GI): Soft to palpation, not firm, nontender, no guarding and not rigid Skin: General skin exam: elasticity normal Neuro: General: patient oriented x3 Cranial nerves: Yes Equal, round and reactive pupils present and Yes Bilaterally intact EOM present Cognition (Neuro): normal cognition Course Course Course Narrative: This is a Rapid Medical Exam performed in triage by Zoë Pouliot PA-C. Full HPI, ROS and PE to be performed by primary ED provider. 28yo F w/pmhx anxiety presenting to the ED c/o chest pain since last night radiating to neck with associated body tingling, SOB, and increased anxiety/stress. States she is unable to sleep secondary to discomfort. PE: Talking in complete sentences. Lungs CTA. RRR Plan: EKG, labs, CXR Medical Decision Making Lab Data 09/29/24 19:04 09/29/24 19:04 Labs: Lab Results 09/29/24 09/29/24 Range/Units 19:04 20:46 WBC 6.9 (4.8-10.8) X10*3/uL RBC 4.36 (4.20-5.50) X10*6/uL Hgb 10.4 L (12.0-16.0) g/dl Hct 33.5 L (37.0-47.0) % MCV 76.8 L (80.0-98.0) fL MCH 23.9 L (27.0-33.0) pg MCHC 31.0 (31.0-35.0) g/dl RDW 15.9 (11.0-16.0) % Plt Count 306 D (160-400) X10*3/uL MPV 9.4 (9.4-12.3) fL Immature Gran % (Auto) 0.3 (0.0-0.4) % Neut % (Auto) 66.4 (45-73) % Lymph % (Auto) 24.3 (20-40) % Isabella % (Auto) 5.2 (2-11) % Eos % (Auto) 3.2 (0-4) % Baso % (Auto) 0.6 (0-2) % Lymph # (Auto) 1.7 (1.2-4.9) X10*3/uL Isabella # (Auto) 0.4 (0.1-1.2) X10*3/uL Eos # (Auto) 0.2 (0.0-0.4) X10*3/uL Baso # (Auto) 0.0 (0.0-0.2) X10*3/uL Abs Immat Gran (auto) 0.02 (0.00-0.03) X10*3/uL Absolute Neuts (auto) 4.6 (2.0-8.3) x10*3/uL Absolute Nucleated RBC 0.000 (0.0-0.012) X10*3/uL Nucleated RBC % (auto) 0.0 (0.0-0.2) /100WBC Sodium 139 (135-145) mmol/L Potassium 3.6 (3.3-5.1) mmol/L Chloride 106 (96-108) mmol/L Carbon Dioxide 22 (22-29) mmol/L Anion Gap 15 (12-20) BUN 9 (9-16) mg/dL Creatinine 0.62 (0.5-1.4) mg/dL Estim Creat Clear Calc 97.7 Estimated GFR > 60 Random Glucose 92 (60-115) mg/dL Calcium 9.3 (8.4-10.2) mg/dL Magnesium 2.1 (1.6-2.6) mg/dL Total Bilirubin 0.8 (0.0-1.0) mg/dL Direct Bilirubin 0.3 (0.0-0.5) mg/dL AST 19 (5-31) U/L ALT 22 (0-31) U/L Alkaline Phosphatase 128 H (39-117) U/L Troponin I High Sens < 2.7 (<3.5-17.0) ng/L Total Protein 8.0 (6.5-8.0) g/dL Albumin 4.4 (3.5-5.0) g/dL Urine Color Yellow Urine Appearance Clear Urine pH 6.0 (5.0-9.0) Ur Specific Altus 1.025 (1.005-1.025) Urine Protein Negative (Neg-Trace) mg/dL Urine Glucose (UA) Negative (Negative) mg/dL Urine Ketones Trace (Negative) mg/dL Urine Blood Trace (Negative) Urine Nitrite Negative (Negative) Ur Leukocyte Esterase Trace H (Negative) Urine RBC 6-10 H (0-2) /HPF Urine WBC 21-50 H (0-5) /HPF Ur Squamous Epith Cells 3-5 (0-2) /HPF Urine Bacteria None Seen (None Seen) Hyaline Casts 0-2 (0-2) /LPF Urine Test NEGATIVE (NEGATIVE) Influenza Type A (PCR) NEGATIVE (Negative) Influenza Type B (PCR) NEGATIVE (Negative) RSV RNA Qual (PCR) NEGATIVE (Negative) SARS-CoV-2 RNA (RT-PCR) NEGATIVE (Negative) Discharge Plan Discharge Clinical Impression: Chest tightness, Iron deficiency anemia Patient Disposition: Home, Self-Care Instructions: Anemia (ED), Anxiety (ED) Additional Instructions: Your workup in the ER today was reassuring. You do have a mild anemia I do think most of your symptoms can be attributed to anxiety Follow-up with the primary doctor. You may also want to request thyroid testing that was not performed today Follow-up with your primary doctor, return for new or worsening symptoms Prescriptions: No Action nitrofurantoin monohyd/m-cryst [Macrobid] 100 mg capsule 100 mg PO Q12H 7 Days Qty: 14 0RF Rx Instructions: must administer with a meal/food [id number] 3-fat com #1 27-1-300 mg capsule PO Interventions: ED Discharge Assessment Last Done: 09/30/24 00:12 Print Language: Ghanaian
[2024-09-29 19:10] LABS: MANUAL DIFF FLAG NO
[2024-09-29 19:11] LABS: Basophils Percent Auto 0.6 % (0-2); Eosinophils Absolute Auto 0.2 X10*3/uL (0.0-0.4); Eosinophils Percent Auto 3.2 % (0-4); Hematocrit 33.5 % (37.0-47.0); Hemoglobin 10.4 g/dl (12.0-16.0); Imm Gran Abs Auto 0.02 X10*3/uL (0.00-0.03); Imm Gran Pct Auto 0.3 % (0.0-0.4); Lymphocytes Absolute Auto 1.7 X10*3/uL (1.2-4.9); Lymphocytes Percent Auto 24.3 % (20-40); Mean Corpuscular Hemoglobin 23.9 pg (27.0-33.0); Mean Corpuscular Volume 76.8 fL (80.0-98.0); Mean Platelet Volume 9.4 fL (9.4-12.3); Monocytes Absolute Auto 0.4 X10*3/uL (0.1-1.2); Monocytes Percent Auto 5.2 % (2-11); Neutrophils Absolute Auto 4.6 x10*3/uL (2.0-8.3); Neutrophils Percent Auto 66.4 % (45-73); Platelet Count 306 X10*3/uL (160-400); Red Blood Count 4.36 X10*6/uL (4.20-5.50); Red Cell Distribution Width 15.9 % (11.0-16.0); White Blood Count 6.9 X10*3/uL (4.8-10.8)
[2024-09-29 19:24] LABS: Alanine Aminotransferase 22 U/L (0-31); Albumin Level 4.4 g/dL (3.5-5.0); Alkaline Phosphatase 128 U/L (39-117); Anion Gap 15 (12-20); Aspartate Amino Transferase 19 U/L (5-31); Bilirubin Direct 0.3 mg/dL (0.0-0.5); Bilirubin Total 0.8 mg/dL (0.0-1.0); Blood Urea Nitrogen 9 mg/dL (9-16); Calcium 9.3 mg/dL (8.4-10.2); Carbon Dioxide 22 mmol/L (22-29); Chloride 106 mmol/L (96-108); Creatinine Clr Calc Pharmacy 97.7; Estimated Glomerular Filt Rate > 60; Glucose Random 92 mg/dL (60-115); Magnesium 2.1 mg/dL (1.6-2.6); Potassium 3.6 mmol/L (3.3-5.1); Sodium 139 mmol/L (135-145)
[2024-09-29 19:33] LABS: Troponin-I High Sensitivity < 2.7 ng/L (<3.5-17.0)
[2024-09-29 19:48] LABS: Influenza A PCR NEGATIVE (Negative); Influenza B PCR NEGATIVE (Negative); Resp Syncy Virus RNA Qual PCR NEGATIVE (Negative); SARS COV2 PCR INHOUSE NEGATIVE (Negative)
[2024-09-29 20:34] VITALS: BP 114/76; PULSE 73; RESP 16; TEMP 36.7; O2SAT 97
--- NOTE | 2024-09-29 20:46 | MHC.EDTECH ---
PT CHANGED OVER AND PLACED ON INSTALLATION HELPER, VS TAKEN AND URINE GIVEN
[2024-09-29 20:57] LABS: Appearance Urine Clear; Color Urine Yellow; Glucose Urine UA Negative (Negative); Leukocyte Esterase Urine Trace (Negative); Nitrite Urine Negative (Negative); Specific Gravity - Urine 1.025 (1.005-1.025); UMIC TRIGGER UACC YES; Urine Blood Trace (Negative); Urine Ketones Trace mg/dL (Negative); Urine Protein Negative (Neg-Trace)
[2024-09-29 21:00] LABS: UPreg QC Valid YES; Urine Pregnancy NEGATIVE (NEGATIVE)
[2024-09-29 21:02] LABS: Bacteria Urine None Seen (None Seen); Hyaline Casts Urine 0-2 /LPF (0-2); UACC Culture Trigger YES; WBC Urine 21-50 /HPF (0-5)
[2024-09-29 23:56] VITALS: BP 116/79; PULSE 70; RESP 15; TEMP 36.7; O2SAT 97
[2024-09-30 00:12] VITALS: BP 116/79; PULSE 70; RESP 15; TEMP 36.7; O2SAT 97
== END 2024-09-30 00:25 | disposition home or self-care (01) ==
PROVIDERS: Physician Assistant; Emergency Provider Emergency Medicine
DX: R07.89 Other chest pain (principal); D50.9 Iron deficiency anemia, unspecified; R06.02 Shortness of breath; R53.83 Other fatigue; F41.9 Anxiety disorder, unspecified; Z03.818 Encounter for observation for suspected exposure to other biological agents ruled out; Z87.891 Personal history of nicotine dependence
CPT/HCPCS: 0241U; 71046; 80048; 80076; 81001; 81025; 83735; 84484; 85025; 87086; 93005; 99283; 99285

== ENCOUNTER → 2024-09-29 18:24 | Outpatient (BNV) | payer OTHER, SELFPAY | PROVIDERS: Emergency Provider Emergency Medicine; Visit Provider Internal Medicine Cardiovascular Disease | DX: R07.9 Chest pain, unspecified (principal); R06.02 Shortness of breath | CPT/HCPCS: 93010 ==

== ENCOUNTER → 2024-09-29 18:43 | Outpatient (BNV) | payer OTHER, SELFPAY | PROVIDERS: Visit Provider Radiology Diagnostic Radiology | DX: R07.9 Chest pain, unspecified (principal) | CPT/HCPCS: 71046 ==

== ENCOUNTER 2025-09-13 09:38 | Emergency (ER) | payer MEDICAID, SELFPAY ==
--- NOTE | 2025-09-13 | ECG_ITS ---
Test Reason : CHEST TIGHTNESS Blood Pressure : */* mmHG Vent. Rate : 122 BPM Atrial Rate : 122 BPM P-R Int : 136 ms QRS Dur : 74 ms QT Int : 292 ms P-R-T Axes : 69 18 30 degrees QTcB Int : 416 ms Sinus tachycardia Possible Left atrial enlargement Nonspecific T wave abnormality Abnormal ECG When compared with ECG of 29-Sep-2024 18:32, Vent. rate has increased by 47 bpm T wave inversion now evident in Anterior leads Referred By: Generic ED Physician Electronically Signed By: Sathish Solares
--- NOTE | ~2025-09-13 | XR_ITS ---
EXAMINATION: XR CHEST CLINICAL INFORMATION: cough COMPARISON: September 29, 2024 TECHNIQUE: PA and lateral views FINDINGS: Hyperinflated lungs. No consolidation, pleural fissure pneumothorax. Cardiomediastinal silhouette size is normal. S-shaped curvature of the thoracolumbar spine. Mild kyphotic deformity. XR/XR chest 2V IMPRESSION: No acute airspace disease. Hyperinflated lungs. Scoliosis, thoracolumbar spine. Electronically signed by: Kareem Goss MD 09/13/2025 01:35 PM EST
[2025-09-13 09:43] VITALS: BP 118/86; PULSE 124; RESP 18; TEMP 36.6; O2SAT 99; BMI 23.6
[2025-09-13 10:23] LABS: MANUAL DIFF FLAG NO
[2025-09-13 10:30] LABS: Hematocrit 35.7 % (37.0-47.0); Hemoglobin 11.9 g/dl (12.0-16.0); Imm Gran Abs Auto 0.03 X10*3/uL (0.00-0.03); Imm Gran Pct Auto 0.5 % (0.0-0.4); Lymphocytes Absolute Auto 0.3 X10*3/uL (1.2-4.9); Mean Corpuscular HGB Conc 33.3 g/dl (31.0-35.0); Mean Corpuscular Hemoglobin 28.1 pg (27.0-33.0); Mean Corpuscular Volume 84.2 fL (80.0-98.0); NRBC Abs Auto 0.000 X10*3/uL (0.0-0.012); NRBC Pct Auto 0.0 /100WBC (0.0-0.2); Platelet Count 229 X10*3/uL (160-400); Red Blood Count 4.24 X10*6/uL (4.20-5.50); White Blood Count 6.3 X10*3/uL (4.8-10.8)
[2025-09-13 10:44] LABS: Anion Gap 10 (12-20); Blood Urea Nitrogen 14 mg/dL (9-16); Calcium 9.0 mg/dL (8.4-10.2); Carbon Dioxide 25 mmol/L (22-29); Chloride 108 mmol/L (96-108); Creatinine Clr Calc Pharmacy 97.2; Estimated Glomerular Filt Rate > 60; Potassium 3.9 mmol/L (3.3-5.1); Sodium 139 mmol/L (135-145)
[2025-09-13 10:55] LABS: Troponin-I High Sensitivity < 2.7 ng/L (<3.5-17.0)
--- NOTE | 2025-09-13 11:00 | ED_ITS ---
HPI - Chest Pain General Chief Complaint: Chest Pain Stated Complaint: chest tightness, multiple symptoms Time Seen by Provider: 09/13/25 12:36 Source: patient Mode of arrival: ambulatory Limitations: no limitations History of Present Illness ED Provider: Itzel Enamorado PA-C HPI narrative: Patient is a 29 year old female with a history of anxiety presenting to the emergency department today with chest tightness, body aches, nausea, and palpitations. Patient states that over the last day she has felt generally unwell with chest tightness, body aches, nausea, and palpitations. Patient denies any other complaints at this time. Related Data Home Medications ?Medication ?Instructions ?Recorded ?Confirmed [id number]-[id number] 3 fatty no.1 27 cap PO 12/06/2311/24 mg-1 mg-300 mg capsule Previous Rx's ?Medication ?Instructions ?Recorded nitrofurantoin 100 mg PO Q12H 7 days #14 ca ps 01/13/24 monohydrate/macrocrystals 100 mg capsule (Macrobid) Allergies Allergy/AdvReac Type Severity Reaction Status Date / Time No Known Allergies Allergy Verified 09/13/25 09:46 Review of Systems 2 Constitutional: Constitutional: Reports as per HPI Eyes: Eyes: Reports as per HPI ENT: Reports as per HPI Cardiovascular: Cardiovascular: Reports as per HPI Respiratory: Respiratory: Reports as per HPI Gastrointestinal: Gastrointestinal: Reports as per HPI Genitourinary: Genitourinary: Reports as per HPI Musculoskeletal: Musculoskeletal: Reports as per HPI Integumentary/Breasts: Skin/Breast: Reports as per HPI Neurologic: Reports as per HPI Psychiatric: Psychiatric: Reports as per HPI Endocrine: Endocrine: Reports as per HPI Hematologic/Lymphatic: Hematologic/Lymphatic: Reports as per HPI Allergic/Immunologic: Allergic/Immunologic: Reports as per HPI PMFSH Past Medical History Attestation statement: The following information was validated with the patient. Source: old records reviewed and nursing notes reviewed Medical History First trimester Helicobacter pylori (H. pylori) No known health problems Surgical History History of esophagogastroduodenoscopy (EGD) Hx of wisdom tooth extraction Family History Family History Mother HTN (hypertension) Social History Social History Household Members: Family Housing: Apartment Alcohol intake: current Alcohol intake frequency: holidays/special occasions only Patient Tobacco Use Status: Former Tobacco user Smoked in Last 30 Days: No Use of substances other than those prescribed or required for medical reasons: No Advance Directives: No Advance Directives Information Provided: Yes Do you have a plan to hurt others: No Plan Current occupational status: employed 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 [employer] Sexual orientation: Straight/Heterosexual Gender identity: Female Physical Exam 2 Vital Signs: Vital Signs: Last Vital Signs Temp 97.8 F 09/13/25 16:04 Pulse 98 09/13/25 16:04 Resp 18 09/13/25 16:04 BP 100/67 09/13/25 16:04 Pulse Ox 98 09/13/25 16:04 O2 Del Method Room Air 09/13/25 09:43 BMI result Body Mass Index 23.6 Const: General: cooperative, no acute distress, alert and awake Nutritional Appearance: well nourished Orientation/consciousness: patient oriented x3 HEENT: Head: Yes normal to inspection and Yes atraumatic Ears: hearing grossly normal bilaterally and external ears normal General nose exam: Normal external nose present, no nasal discharge noted and no epistaxis Face and sinus: Yes normal facial exam, No abrasion and No laceration Mouth: Normal oral and palatal mucosa present, no drooling and no muffled voice Eyes: General: appearance normal, both eyes and all related structures P eriorbital: periorbital findings normal Eyelids: Yes eyelids normal C onjunctivae: conjunctivae normal Pupils: Equal, round and reactive pupils present EOM: EOMs intact bilaterally Neck: Neck: Yes normal visual inspection and Yes full ROM Resp: Effort & Inspection: normal respiratory effort and able to speak in complete sentences Neuro: General: patient oriented x3, moves all extremities and CN's II-XI intact bilaterally Cranial nerves: Yes Equal, round and reactive pupils present Cognition (Neuro): normal cognition Extrem: General: Yes normal to inspection, Yes full ROM and Yes capillary refill normal Psych: Appearance: grossly normal Mental Status: mental status grossly normal Affect: normal affect Attitude: cooperative Thought process: N ormal thought process present Thought content: Normal thought content present Insight: Good insight present (Psych) Course Course Course Narrative: This is a Rapid Medical Exam performed in triage by Zoë Dennis PA-C. Full HPI, ROS and PE to be performed by primary ED provider. 29-year-old female presenting to the ED c/o chest tightness, palpitations, fatigue, subjective fever, chills, nausea, headache x yesterday PE: NAD, nontoxic appearing. lungs CTA, tachycardic Plan: EKG, labs, viral testing Medications Administered Discontinued Medications Generic Name Dose Route Start Last Admin Trade Name Freq PRN Reason Stop Dose Admin Acetaminophen 1,000 mg in 100 mls @ 400 mls/hr 09/13/25 12:37 09/13/25 13:49 Ofirmev IV 09/13/25 12:51 Infused ONCE ONE Infusion Sodium Chloride 1,000 mls @ 999 mls/hr 09/13/25 12:45 09/13/25 14:13 Ns IV 09/13/25 14:45 999 mls/hr .Q1H1M EUFEMIA Administration Ibuprofen 400 mg 09/13/25 11:21 09/13/25 11:29 Ibuprofen 400 Mg Tablet PO 09/13/25 11:22 400 mg ONCE ONE Administration Medical Decision Making Medical Decision Making [facility] Narrative: Patient is a 29 year old female with a history of anxiety presenting to the emergency department today with chest tightness, body aches, nausea, and palpitations. Patient's physical exam was as noted in the physical exam portion of this note. Patient's blood work was unremarkable. Patient's EKG showed sinus tachycardia with no obvious evidence of ischemia or infarct. Patient's chest x-ray showed no acute process. Patient's Influenza test was positive. Patient's COVID-19 and RSV testing was negative. Patient received IV Tylenol, PO Ibuprofen, and IV fluids which, upon re- evaluation, she stated it helped her symptoms significantly. I explained my physical exam findings as well as all test results to the patient. I answered all questions asked by the patient. I stressed the importance of the patient taking her medication as directed (either prescribed or as the over the counter packaging recommends). I stressed the importance of the patient following up with her primary care provider. I stressed the importance of the patient returning to the emergency department immediately if her symptoms were to worsen or if she were to develop any dizziness, shortness of breath, difficulty breathing, chest pain, blurry vision, loss of vision, nausea, vomiting, abdominal pain, fever, chills, back pain, or any other complaints. Patient verbalized agreement and understanding with this treatment plan and discharge. Differential Diagnosis Differential Diagnoses: The differential diagnosis associated with the presentation includes Chest pain Influenza RSV COVID-19 Admission/Observation Consideration of admission/observation: Escalation of care including admission/observation considered Patient would have been admitted to the hospital had her work up had any findings where hospital admission was appropriate and her clinical presentation warranted hospital admission. Lab Data [facility] Lab Attestation statement: I reviewed the patient's lab results. My interpretation of these results are in the [facility] Rationale portion of this note. 09/13/25 10:06 09/13/25 10:07 Labs: Lab Results 09/13/25 09/13/25 Range/Units 10:06 10:07 WBC 6.3 (4.8-10.8) X10*3/uL RBC 4.24 (4.20-5.50) X10*6/uL Hgb 11.9 L (12.0-16.0) g/dl Hct 35.7 L (37.0-47.0) % MCV 84.2 (80.0-98.0) fL MCH 28.1 (27.0-33.0) pg MCHC 33.3 (31.0-35.0) g/dl RDW 12.9 (11.0-16.0) % Plt Count 229 D (160-400) X10*3/uL MPV 9.4 (9.4-12.3) fL Immature Gran % (Auto) 0.5 H (0.0-0.4) % Neut % (Auto) 85.0 H (45-73) % Lymph % (Auto) 5.3 L (20-40) % [place] % (Auto) 8.1 (2-11) % Eos % (Auto) 0.6 (0-4) % Baso % (Auto) 0.5 (0-2) % Lymph # (Auto) 0.3 L (1.2-4.9) X10*3/uL [place] # (Auto) 0.5 (0.1-1.2) X10*3/uL Eos # (Auto) 0.0 (0.0-0.4) X10*3/uL Baso # (Auto) 0.0 (0.0-0.2) X10*3/uL Abs Immat Gran (auto) 0.03 (0.00-0.03) X10*3/uL Absolute Neuts (auto) 5.3 (2.0-8.3) x10*3/uL Absolute Nucleated RBC 0.000 (0.0-0.012) X10*3/uL Nucleated RBC % (auto) 0.0 (0.0-0.2) /100WBC Sodium 139 (135-145) mmol/L Potassium 3.9 (3.3-5.1) mmol/L Chloride 108 (96-108) mmol/L Carbon Dioxide 25 (22-29) mmol/L Anion Gap 10 L (12-20) BUN 14 (9-16) mg/dL Creatinine 0.64 (0.5-1.4) mg/dL Estim Creat Clear Calc 97.2 Estimated GFR > 60 Random Glucose 103 (60-115) mg/dL Calcium 9.0 (8.4-10.2) mg/dL Troponin I High Sens < 2.7 (<3.5-17.0) ng/L Beta HCG, Quant < 2 mIU/mL Influenza Type A (PCR) POSITIVE A (Negative) Influenza Type B (PCR) NEGATIVE (Negative) RSV RNA Qual (PCR) NEGATIVE (Negative) SARS-CoV-2 RNA (RT-PCR) NEGATIVE (Negative) Independent Interpretation I performed an independent interpretation of an: EKG and Plain X-Ray Interpretation: My interpretation is in agreement with the radiologist's impression of this imaging study as written below. EXAMINATION: XR CHEST CLINICAL INFORMATION: cough COMPARISON: September 29, 2024 TECHNIQUE: PA and lateral views FINDINGS: Hyperinflated lungs. No consolidation, pleural fissure pneumothorax. Cardiomediastinal silhouette size is normal. S-shaped curvature of the thoracolumbar spine. Mild kyphotic deformity. XR/XR chest 2V IMPRESSION: No acute airspace disease. Hyperinflated lungs. Scoliosis, thoracolumbar spine. Electronically signed by: Kareem Goss MD 09/13/2025 01:35 PM [facility] Dictated By: Kareem Srivastava MD Signed By: Electronically signed by Kareem Marsh MD 09/13/25 1335 I independently interpreted this EKG and am in agreement with the below findings: Vent. Rate: 122 BPM Atrial Rate: 122 BPM P-R Int: 136 ms QRS Dur: 74 ms QT Int: 292 ms P-R-T Axes: 69 18 30 degrees QTcB Int: 416 ms Sinus tachycardia 09/13/25 1236 Radiology Impression Discussion of test interpretation with radiology: I have reviewed the radiologist's reading. Prescription Management I considered prescription management with: Antiviral (I considered prescribing tamiflu however, the patient's current clinical presentation did not warrant it at this time. ) Discharge Plan Discharge Clinical Impression: Influenza Patient Disposition: Home, Self-Care Instructions: Influenza (DC) Additional Instructions: Your work up today was reassuring there is no EMERGENT cause for your symptoms. You are positive for Influenza. IF you are prescribed home medications and/or you are taking over the counter medications at home - it is very important you continue to do so as prescribed / directed unless told otherwise by a healthcare provider. Follow up with your primary care provider. Do your best to stay well hydrated and rest. Return to the emergency department immediately if your symptoms worsen or if you develop any numbness, tingling, dizziness, shortness of breath, difficulty breathing, chest pain, blurry vision, loss of vision, nausea, vomiting, abdominal pain, fever, chills, back pain, or any other complaints. L If you do not have a primary care provider - call any of the below numbers to establish and follow up with a primary care provider. [facility] Primary Care ([place]) [phone] [place] [address], [address] [facility] Primary Care (2 [address] [place]) [phone] [place] [address], [address] [facility], [address] [facility] Primary Care ([address] [place]) [phone] [place] [address], [address] [place], [address] [facility] Primary Care ([place]) [phone] [place] [address], [address] [place], [address] [facility] Family Medicine [phone] [place] [address], [address] Please see the information below about our Patient Portal. If you are not yet enrolled in the [facility] Patient Portal, you will receive an enrollment email invitation following your visit to any [facility] setting. You may also self-enroll in the Patient Portal by visiting our website: [email or web address] The following information is required to access the Patient Portal: - Your [facility] Medical Record Number - Your personal home email address (must match what is in your electronic medical record, Registration staff can assist with this) - Name - Date of Capabilities of the Patient Portal: - Message some providers - View upcoming appointments - Access your health summary, medical history, and visit history - View current conditions and allergies - View procedure and lab results - View your medications, including guidelines, side effects, and precautions - Complete pre-appointment questionnaires requested by your provider - Ready summary reports of your office visits and procedures To access the Patient Portal Mobile Jae, follow these directions: - Search nodila in the Jae Store or Google CodeSealer Store - Download the Jae - Search for [facility] - Enter your login/password Prescriptions: No Action nitrofurantoin monohyd/m-cryst [Macrobid] 100 mg capsule 100 mg PO Q12H 7 Days Qty: 14 0RF Rx Instructions: must administer with a meal/food FIG-pyhi-WI-omega 3 fatty no.1 27-1-300 mg capsule PO Stand Alone Forms: Work/School Release Interventions: ED Discharge Assessment Last Done: 09/13/25 16:04 Discharge Date/Time: 09/13/25 16:05 Print Language: Azeri
[2025-09-13 11:06] LABS: Resp Syncy Virus RNA Qual PCR NEGATIVE (Negative); SARS COV2 PCR INHOUSE NEGATIVE (Negative)
[2025-09-13 14:10] VITALS: BP 98/62; PULSE 106; RESP 18; TEMP 37; O2SAT 98
--- OUTSIDE RECORDS SUMMARY | 2025-09-13 15:09 | XMS_ITS | Clinical Summary ---
Author Organization [employer] Address [address] [place] [address] Care Team Providers Care Batch Tester Name Role Phone Unavailable Primary Care Provider Unavailabl e Social History Tobacco Use Types Packs/Day Years Used Date Smoking Tobacco: Never Assessed Comments Unknown Sex and Gender Information Value Date Recorded Sex Assigned at Not on file Legal Sex Female 1:44 PM EST Gender Identity Not on file Sexual Orientation Not on file Plan of Treatment Health Maintenance Due Date Last Done Comments Depression Screening 1996 HIV Screening 1996 Disability Screening 1996 Alcohol/Substance Use Screening 2008 Tobacco Screening 2008 Family Planning (PISQ) 12/17/2011 HPV Vaccines (1 - 3-dose series) 12/17/2011 Hepatitis C Screening 2014 DTaP/Tdap/Td Vaccines (1 - Tdap) 12/17/2015 Hepatitis B Vaccines (1 of 3 - 19+ 3-dose series) 12/17/2015 Pap Smear 2017 COVID-19 Vaccine (1 - 2024-2 6 season) 2025 Influenza Vaccine (#1) 2025 Zoster Vaccines (1 of 2) 2046 RSV Patients and Pa tients Aged 60 years or older (1 - 1-dose 75+ series) 12/17/2071 HIB Vaccines Aged Out No longer eligi ble based on patient's age to complete this topic Hepatitis A Vaccines Aged Out No long er eligible based on patient's age to complete this topic IPV Vaccines Aged Out No longer eligi ble based on patient's age to complete this topic Meningococcal B Vaccine Aged Out No l onger eligible based on patient's age to complete this topic Meningococcal Vaccine Aged Out No maurice alireza eligible based on patient's age to complete this topic Pneumococcal Vaccine: Pediat rics (0 to 5 Years) and At-Risk Patients (6 to 49) Years Aged Out No longer eligible b ased on patient's age to complete this topic RSV under 20 months Aged Out No longe r eligible based on patient's age to complete this topic Rotavirus Vaccines Aged Out No longer eligible based on patient's age to complete this topic
--- OUTSIDE RECORDS SUMMARY | 2025-09-13 15:10 | XMS_ITS | Data Portability ---
Author Organization LAURA Laguerre [facility], [address] Address [address] [place] [address] Assessment No assessment recorded. Plan of Treatment Reminders Order Date Submit Date Provider Last Modified By Organization Details Last Modified Time Details Appointments None recorded. Lab None recorded. Referral dermatologi st referral 2022 023 [email or web address] Not available 10:06:17 Procedures None recorded. Surgeries None recorded. Imaging None recorded. Medication Orders doxycycline hyclate 100 mg capsule 2022 023 [place] [id number], [address], [place], [address], 09:57:56 Patient TargetsNo targets recorded. Patient InstructionsNo instructions recorded. 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 [...] mass index (BMI) Body weight Oxygen saturation Pain severity - 0-10 verbal numeric rating [Score] - Reported Heart rate Respiratory rate Body temperature Systolic And Diastolic Provider Name and Address Organization Details Last Updated DateTime 3 147.32 cm 18.8 kg/m2 38165.3 1 g 100 % 4 69 /min 16 /min 98 [degF] 111/74 mm[Hg] Haley Laguerre [facility] 3 09:22:56 Social History Question Answer Notes LastModified by Organizat ion Details LastModified Time Tobacco Smoking Status Never Smoker LAURA Nelson [facility] 03/17/2023 09:20:37 Have You Had Direct Contact, Or Contact During Intimacy, With Monkeypox Rash, Scabs, Or Body Fluids From A Person With Monkeypox? No Information not available 03/17/2023 Have You Recently Traveled Abroad? No Information not available 03/17/2023 Sex: Unknown Functional Status Question Answer Note LastModified by Organizat ion Details LastModified Time How many times per week do you consume alcohol? Less than 1 time per week Information not available 03/17/2023 Do you use any illicit or recreational drugs? No Information not available 03/17/2023 Do you or have you ever used any other forms of tobacco or nicotine? No Information not available 03/17/2023 What is your level of alcohol consumption? Occasional Information not available 03/17/2023 Are you currently employed? Yes Information not available 03/17/2023 Mental Status None recorded. Family History Relationship [...] Diagnosis SNOMED-CT Code Diagnosis ICD10 Code Diagnosis IMO Codes Diagnosis Note [id number] [facility] [address] [facility] [place] [address] 12/19/2020 18:46:40 12/19/2020 19:29:56 [id number] [address] [address] [place] [address] 01/06/2021 14:21:33 01/06/2021 16:27:26 [id number] Ale Taylor MD [address] [place] [address] 03/17/2023 08:22:45 03/17/2023 10:00:07 Cystic acne 29125875 L70.0 Discussed a trial of Doxycyline and [...] Recorded Advance Directives Directive None Recorded Payers Insurance Date Sequence Insurance Name Policy Number Policy Maharaj Covered Member ID Maharaj Member ID Guarantor Name 03/17/2023 1 [facility] TOGETHER WITH [facility] (MEDICAID HMO) [id number] Sonal Bloom Pereyra [id number] Sonal Roddy 03/17/2023 1 [facility] PLAN - [facility] (MEDICAID REPLACEMENT - HMO) [place] Sonal Bloom Pereyra [id number] Sonal Pereyra 03/17/2023 1 [place] [facility] Sonal Bloom Pereyra [id number] Sonal Simmonso Notes Date Note Type Note Provider Name and Address Organization Details Recorded Time 03/17/2023 text/html UC Rash/Skin LesionReported by PatientHPIFor quality, patient reportspainfulandred . For location, patient reportsface,forehead ,chest, andback. For severity, patient reportsmoderate. For associated symptoms, patient reportsno feverandno fatigue.previously was on control pills which helped but has stopped for a few years and now skin has gotten bad. Has tretinoin and topical clindamycin at home from an online evaluation she did, but hasnt used it yet Ale Taylor MD [address] [place], [address], [place] - [facility] 03/19/2023 13:41:27 OBGyn Episode No OBEpisode recorded.
[2025-09-13 15:13] VITALS: BP 100/67; PULSE 98; RESP 18; TEMP 36.6; O2SAT 98
[2025-09-13 16:04] VITALS: BP 100/67; PULSE 98; RESP 18; TEMP 36.6; O2SAT 98
== END 2025-09-13 16:05 | disposition home or self-care (01) ==
PROVIDERS: Physician Assistant Medical; Emergency Provider Emergency Medicine
DX: J10.1 Influenza due to other identified influenza virus with other respiratory manifestations (principal); R07.9 Chest pain, unspecified; R11.0 Nausea; R00.2 Palpitations; F41.9 Anxiety disorder, unspecified; F17.210 Nicotine dependence, cigarettes, uncomplicated; R53.83 Other fatigue; R50.9 Fever, unspecified; R51.9 Headache, unspecified
CPT/HCPCS: 36415; 71046; 80048; 84484; 84702; 85025; 87637; 93005; 96361; 96374; 99284; 99285; J0131

== ENCOUNTER → 2025-09-13 09:57 | Outpatient (BNV) | payer MEDICAID, SELFPAY | PROVIDERS: Emergency Provider Emergency Medicine; Visit Provider Internal Medicine Cardiovascular Disease | DX: R00.0 Tachycardia, unspecified (principal) | CPT/HCPCS: 93010 ==

== ENCOUNTER → 2025-09-13 12:37 | Outpatient (BNV) | payer MEDICAID, SELFPAY | PROVIDERS: Visit Provider Radiology Diagnostic Radiology | DX: J98.4 Other disorders of lung (principal); M41.84 Other forms of scoliosis, thoracic region | CPT/HCPCS: 71046 ==

== ENCOUNTER 2025-09-22 22:48 | Emergency (ER) | payer MEDICAID, SELFPAY ==
--- NOTE | ~2025-09-22 | CT_ITS ---
CLINICAL HISTORY: R flank pain CT abdomen and pelvis without contrast Comparison: CT/SR - CT ABDOMEN PELVIS WO IV CON - 07/12/22 12:41 EDT Findings: No consolidation or effusion. Nonobstructing small renal calculus in the right kidney. Kidneys are non hydronephrotic. Gallbladder is unremarkable. No focal hepatic lesion. Pancreas, spleen and adrenal glands are within normal limits. No bowel obstruction, pneumoperitoneum, or pneumatosis. Pelvic contents unremarkable. Normal appendix. The bones are intact. IMPRESSION: No acute findings. This document has been electronically signed by: Tom Rutherford MD, PHD on 09/23/2025 03:27:46
[2025-09-22 22:52] VITALS: BP 106/68; PULSE 74; RESP 16; TEMP 36.8; O2SAT 98; BMI 24.0
[2025-09-22 23:26] LABS: Hematocrit 35.1 % (37.0-47.0); Hemoglobin 11.8 g/dl (12.0-16.0); Imm Gran Abs Auto 0.05 X10*3/uL (0.00-0.03); Imm Gran Pct Auto 0.7 % (0.0-0.4); Lymphocytes Absolute Auto 2.4 X10*3/uL (1.2-4.9); Mean Corpuscular HGB Conc 33.6 g/dl (31.0-35.0); Mean Corpuscular Hemoglobin 28.3 pg (27.0-33.0); Mean Corpuscular Volume 84.2 fL (80.0-98.0); NRBC Abs Auto 0.000 X10*3/uL (0.0-0.012); NRBC Pct Auto 0.0 /100WBC (0.0-0.2); Platelet Count 291 X10*3/uL (160-400); Red Blood Count 4.17 X10*6/uL (4.20-5.50); White Blood Count 7.2 X10*3/uL (4.8-10.8)
[2025-09-22 23:27] LABS: MANUAL DIFF FLAG NO
[2025-09-22 23:28] LABS: Appearance Urine Clear; Glucose Urine UA Negative (Negative); PH 5.5 (5.0-9.0); Specific Gravity - Urine >= 1.030 (1.005-1.025); UMIC TRIGGER UACC YES
[2025-09-22 23:30] LABS: UACC Culture Trigger YES
[2025-09-22 23:46] LABS: Alanine Aminotransferase 20 U/L (0-31); Albumin Level 4.2 g/dL (3.5-5.0); Alkaline Phosphatase 101 U/L (39-117); Anion Gap 12 (12-20); Aspartate Amino Transferase 20 U/L (5-31); Blood Urea Nitrogen 17 mg/dL (9-16); Calcium 9.0 mg/dL (8.4-10.2); Carbon Dioxide 21 mmol/L (22-29); Chloride 110 mmol/L (96-108); Creatinine Clr Calc Pharmacy 108.3; Estimated Glomerular Filt Rate > 60; Lipase 33 U/L (8-78); Potassium 4.1 mmol/L (3.3-5.1); Sodium 139 mmol/L (135-145); Total Protein 7.6 g/dL (6.5-8.0)
[2025-09-23 01:44] VITALS: BP 123/76; PULSE 77; RESP 16; TEMP 36.8; O2SAT 100
--- NOTE | 2025-09-23 01:50 | PC.NURSE ---
pt from triage reports 6/10 right sided lower back/flank pain nonradiating reports its been intermittent for the past year following her . Denies any other symptoms and VSS.
--- OUTSIDE RECORDS SUMMARY | 2025-09-23 02:02 | XMS_ITS | Clinical Summary ---
Author Organization [employer] Address [address] [place] [address] Care Team Providers Care Yard Brakeman Name Role Phone Unavailable Primary Care Provider [...]
--- OUTSIDE RECORDS SUMMARY | 2025-09-23 02:02 | XMS_ITS | Data Portability ---
Author Organization LAURA Laguerre [employer], [address] [place] [address] Assessment No assessment recorded. Plan of Treatment Reminders Order Date Submit Date Provider Last Modified By Organization Details Last Modified Time Details Appointments None recorded. Lab None recorded. Referral dermatologi st referral 2022 023 [email or web address] Not available 10:06:17 Procedures None recorded. Surgeries None recorded. Imaging None recorded. Medication Orders doxycycline hyclate 100 mg capsule 2022 023 [id number], [address], [place], [address], 09:57:56 Patient TargetsNo targets recorded. Patient InstructionsNo instructions recorded. Reason for Referral Reading Interventionist Referral for C ystic acne Referring Physician: [...] Updated DateTime 3 147.32 cm 18.8 kg/m2 96021.3 1 g 100 % 4 69 /min [...] ICD10 Code Diagnosis IMO Codes Diagnosis Note [id number] [facility] [address] [place] [address] 12/19/2020 18:46:40 12/19/2020 19:29:56 [id number] [facility] [place] [address] 01/06/2021 14:21:33 01/06/2021 16:27:26 [id number] Ale Taylor MD [address] [place] [address] 03/17/2023 08:22:45 03/17/2023 10:00:07 Cystic acne [id number] L70.0 Discussed a trial of Doxycyline and [...] Maharaj Member ID Guarantor Name 03/17/2023 1 [facility] TOGETHER WITH [facility] (MEDICAID HMO) [id number] Sonal Bloom Pereyra [id number] Sonal Roddy 03/17/2023 1 [facility] - [facility] (MEDICAID REPLACEMENT - HMO) [place] Sonal Bloom Pereyra [id number] Sonal Pereyra 03/17/2023 1 [place]ICAID-[place]: [facility] Sonal Bloom Pereyra [id number] Sonal Simmonso Notes Date Note Type Note [...] Ale Taylor MD [address] [place], [address], [place] - [facility] 03/19/2023 13:41:27 OBGyn Episode No OBEpisode recorded.
--- NOTE | 2025-09-23 02:22 | ED_ITS ---
HPI - Back Pain/Injury General Chief Complaint: Back Pain/Injury Stated Complaint: lower back pain, rt side ? kidney Time Seen by Provider: 09/23/25 02:10 Source: patient Mode of arrival: ambulatory Limitations: no limitations History of Present Illness ED Provider: Dr. Sonal Atkinson HPI Narrative: Patient comes to the emergency room complaining of right flank pain/right lower back pain intermittent for months. Patient states it has almost been a year. Patient denies hematuria or dysuria. Patient states that she denies any injury. Patient reports frequent urination. Denies fever or chills. Patient states that the only pattern that she has noticed is that her lower back hurts when she eats. However, over last few days, she has back pain even if she is not eating. Patient denies any right upper quadrant pain or epigastric pain Related Data Home Medications ?Medication ?Instructions ?Recorded ?Confirmed [id number]-[id number]-GM-[id number] 3 fatty no.1 27 cap PO 12/06/2311/24 mg-1 mg-300 mg capsule Previous Rx's ?Medication ?Instructions ?Recorded nitrofurantoin 100 mg PO Q12H 7 days #14 ca ps 01/13/24 monohydrate/macrocrystals 100 mg capsule (Macrobid) cyclobenzaprine 5 mg tablet 5 mg PO TID PRN muscle spa sm #14 09/23/25 tabs ketorolac 10 mg tablet 10 mg PO Q8H PRN pain #10 ta bs 09/23/25 Allergies Allergy/AdvReac Type Severity Reaction Status Date / Time No Known Allergies Allergy Verified 09/22/25 22:55 Review of Systems 2 Review of Systems: Constitutional : No Weight loss, No Fever, No Chills, No Night Sweats, No Fatigue, No Malaise ENT/Mouth : No Hearing loss, No Ear Pain, No Nasal Congestion, No Sinus Pain, No Hoarseness, No sore throat, No Rhinorrhea, No Swallowing Difficulty Eyes: No Eye Pain, No Swelling, No Redness, No Foreign Body, No Discharge, No Vision Changes Cardiovascular : No Chest Pain, No SOB, No Dyspnea on Exertion, No Orthopnea, No Edema, No Palpitations Respiratory : No Cough, No Sputum, No Wheezing, No Smoke Exposure, No Dyspnea Gastrointestinal : No Nausea, No Vomiting, No Diarrhea, No Constipation, No abdominal Pain, No Hematochezia, No Melena Genitourinary : no irregular bleeding, No Dysuria, No Urinary Frequency, No Hematuria, No Urinary Incontinence, No Urgency, complaining of acute on chronic right-sided Flank Pain, No Urinary Flow Changes, No Hesitancy Musculoskeletal : No joint pain, No Myalgias, No Joint Swelling Skin : No Skin Lesions, No rash Neuro : No Weakness, No Numbness, No Paresthesias, No Loss of Consciousness, No Dizziness, No Headache Psych : No Anxiety/Panic, No Depression, No SI/HI/AH/VH, No Social Issues, Heme/Lymph: No Bruising, No Bleeding,No Lymphadenopathy Endocrine : No Polyuria, No Polydipsia, No Temperature Intolerance [facility] Past Medical History Medical History First trimester Helicobacter pylori (H. pylori) No known health problems Surgical History History of esophagogastroduodenoscopy (EGD) Hx of wisdom tooth extraction Family History Family History Mother HTN (hypertension) Social History Social History Household Members: Family Housing: Apartment Alcohol intake: current Alcohol intake frequency: holidays/special occasions only Patient Tobacco Use Status: Former Tobacco user Smoked in Last 30 Days: No Use of substances other than those prescribed or required for medical reasons: No Advance Directives: No Advance Directives Information Provided: No Do you have a plan to hurt others: No Plan Current occupational status: employed 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 Oriented X3. No acute distress. Eyes: Pupils equal, round and reactive to light. ENT: Pharynx normal. Neck: Normal inspection. Neck supple. No lymph nodes noted. No crepitus CVS: Normal heart rate and rhythm. Pulses normal. Normal S1 and S2 Respiratory: No respiratory distress. Breath sounds normal. No Wheezing. No rales Abdomen: Soft and nontender. No rigidity. No distention. Negative CVA tenderness Back: No thoracic spine or lumbar spine tenderness Skin: Skin warm and dry. Normal skin color. Normal skin turgor. Extremities: No lower extremity edema. No Lacerations. No Rash Neuro: Oriented X 3. No motor deficit. No sensory deficit. Moving all extremities. No slurred speech. CN 2 through 12 grossly intact Psych: calm, cooperative, normal affect Vital Signs: Vital Signs: Last Vital Signs Temp 98.3 F 09/23/25 01:44 Pulse 77 09/23/25 01:44 Resp 16 09/23/25 01:44 BP 123/76 09/23/25 01:44 Pulse Ox 100 09/23/25 01:44 O2 Del Method Room Air 09/23/25 01:44 BMI result Body Mass Index 24.0 Course Course Course Narrative: Patient reports right-sided flank pain intermittently for almost 1 year. Seems to be more constant now for almost 3 days. All of patient's labs and imaging pending Patient requested pain medication, Toradol IM has been given Medical Decision Making Medical Decision Making [facility] Narrative: My interpretation of labs: No significant acute abnormality in patient's hematology. Patient known to be anemic. Chemistry does not show any significant abnormality. Normal LFTs, normal renal function, troponin negative, lipase negative, hCG negative Urinalysis is interesting. Patient always has a leukocyte esterase, RBCs, WBCs, bacteria and squamous epithelial cells. I reviewed patient's microbiology, patient's urine from today looks the same as previous urines that did not grow any specific UTI. Patient always has leuk esterases and blood in the urine I discussed with the patient that regardless of her CT scans, she will need a follow-up with urology due to the chronic hematuria that she has had since 2023 CT scan does not show any acute abnormality. Patient will follow-up with urology Given patient's symptoms of frequent urination we will treat as UTI. Differential Diagnosis Differential Diagnoses: The differential diagnosis associated with the presentation includes (UTI, chronic cystitis, pyelonephritis) Admission/Observation Consideration of admission/observation: Escalation of care including admission/observation considered Lab Data [facility] Lab Attestation statement: I reviewed the patient's lab results. 09/22/25 23:20 09/22/25 23:20 Labs: Lab Results 09/22/25 Range/Units 23:20 WBC 7.2 (4.8-10.8) X10*3/uL RBC 4.17 L (4.20-5.50) X10*6/uL Hgb 11.8 L (12.0-16.0) g/dl Hct 35.1 L (37.0-47.0) % MCV 84.2 (80.0-98.0) fL MCH 28.3 (27.0-33.0) pg MCHC 33.6 (31.0-35.0) g/dl RDW 13.0 (11.0-16.0) % Plt Count 291 D (160-400) X10*3/uL MPV 9.5 (9.4-12.3) fL Immature Gran % (Auto) 0.7 H (0.0-0.4) % Neut % (Auto) 55.1 (45-73) % Lymph % (Auto) 33.4 (20-40) % [place] % (Auto) 5.8 (2-11) % Eos % (Auto) 4.4 H (0-4) % Baso % (Auto) 0.6 (0-2) % Lymph # (Auto) 2.4 (1.2-4.9) X10*3/uL [place] # (Auto) 0.4 (0.1-1.2) X10*3/uL Eos # (Auto) 0.3 (0.0-0.4) X10*3/uL Baso # (Auto) 0.0 (0.0-0.2) X10*3/uL Abs Immat Gran (auto) 0.05 H (0.00-0.03) X10*3/uL Absolute Neuts (auto) 4.0 (2.0-8.3) x10*3/uL Absolute Nucleated RBC 0.000 (0.0-0.012) X10*3/uL Nucleated RBC % (auto) 0.0 (0.0-0.2) /100WBC Sodium 139 (135-145) mmol/L Potassium 4.1 (3.3-5.1) mmol/L Chloride 110 H (96-108) mmol/L Carbon Dioxide 21 L (22-29) mmol/L Anion Gap 12 (12-20) BUN 17 H (9-16) mg/dL Creatinine 0.58 (0.5-1.4) mg/dL Estim Creat Clear Calc 108.3 Estimated GFR > 60 Random Glucose 98 (60-115) mg/dL Calcium 9.0 (8.4-10.2) mg/dL Total Bilirubin 0.3 (0.0-1.0) mg/dL AST 20 (5-31) U/L ALT 20 (0-31) U/L Alkaline Phosphatase 101 (39-117) U/L Total Protein 7.6 (6.5-8.0) g/dL Albumin 4.2 (3.5-5.0) g/dL Lipase 33 (8-78) U/L Beta HCG, Quant < 2 mIU/mL Urine Color Yellow Urine Appearance Clear Urine pH 5.5 (5.0-9.0) Ur Specific [place] >= 1.030 H (1.005-1.025) Urine Protein Trace (Neg-Trace) mg/dL Urine Glucose (UA) Negative (Negative) mg/dL Urine Ketones Trace (Negative) mg/dL Urine Blood Moderate (2+) H (Negative) Urine Nitrite Negative (Negative) Ur Leukocyte Esterase Moderate (2+) H (Negative) Urine RBC 11-20 H (0-2) /HPF Urine WBC >50 H (0-5) /HPF Ur Squamous Epith Cells 11-20 (0-2) /HPF Urine Bacteria 1+ (None Seen) Hyaline Casts 0-2 (0-2) /LPF Independent Interpretation I performed an independent interpretation of an: CT Scan Radiology Impression Discussion of test interpretation with radiology: I have reviewed the radiologist's reading. Radiologist Impression: No consolidation or effusion. Nonobstructing small renal calculus in the right kidney. Kidneys are non hydronephrotic. Gallbladder is unremarkable. No focal hepatic lesion. Pancreas, spleen and adrenal glands are within normal limits. No bowel obstruction, pneumoperitoneum, or pneumatosis. Pelvic contents unremarkable. Normal appendix. The bones are intact. IMPRESSION: No acute findings. Discharge Plan Discharge Clinical Impression: Musculoskeletal pain, Hematuria Patient Disposition: Home, Self-Care Instructions: Hematuria (ED), Musculoskeletal Pain (ED) Additional Instructions: Please follow-up with your primary care physician tomorrow. If you have any worsening or new symptoms, please return to the emergency room or call 911 Prescriptions: New ketorolac 10 mg tablet 10 mg PO Q8H PRN (Reason: pain) Qty: 10 0RF Rx Instructions: maximum total duration of 5 days from all oral, intranasal, or parenteral formulations cyclobenzaprine 5 mg tablet 5 mg PO TID PRN (Reason: muscle spasm) Qty: 14 0RF No Action nitrofurantoin monohyd/m-cryst [Macrobid] 100 mg capsule 100 mg PO Q12H 7 Days Qty: 14 0RF Rx Instructions: must administer with a meal/food TGP-pabh-IB-omega 3 fatty no.1 27-1-300 mg capsule PO Referrals: Rajiv Pak MD [Physician, Urology] Print Language: Kiswahili
[2025-09-23 03:59] VITALS: BP 122/76; PULSE 72; RESP 18; TEMP 36.7; O2SAT 99
[2025-09-23 04:25] VITALS: BP 107/66; PULSE 86; RESP 14; TEMP 36.8; O2SAT 100
== END 2025-09-23 04:26 | disposition home or self-care (01) ==
PROVIDERS: Emergency Provider Emergency Medicine; PCP Dentist General Practice
DX: R31.9 Hematuria, unspecified (principal); M79.10 Myalgia, unspecified site; M54.50 Low back pain, unspecified; R10.13 Epigastric pain; R35.0 Frequency of micturition; R10.11 Right upper quadrant pain; Z79.899 Other long term (current) drug therapy; Z87.891 Personal history of nicotine dependence
CPT/HCPCS: 36415; 74176; 80053; 81001; 83690; 84702; 85025; 87086; 87147; 96374; 99284; J1885

== ENCOUNTER → 2025-09-23 02:21 | Outpatient (BNV) | payer MEDICAID, SELFPAY | PROVIDERS: Emergency Provider Emergency Medicine; PCP Dentist General Practice; Visit Provider General Practice | DX: N20.0 Calculus of kidney (principal); R10.A1 Flank pain, right side | CPT/HCPCS: 74176 ==